=== PATIENT | female | born 1945 | race Caucasian/White ===

== ENCOUNTER 2022-04-26 11:35 | Inpatient (IN) | payer MEDICARE, OTHER ==
[2022-04-26 12:01] LABS: BASOPHILS % (AUTO) 0.4 %; EOSINOPHILS % (AUTO) 0.8 %; HCT - HEMATOCRIT 42.1 % (37.0-47.0); HGB - HEMOGLOBIN 14.7 g/dL (12.0-16.0); LYMPHOCYTES # (AUTO) 0.4 10^3/uL (1.5-3.5); LYMPHOCYTES % (AUTO) 16.3 %; MEAN CORPUSCULAR HGB CONC 34.9 g/dL (32.0-36.0); MEAN CORPUSCULAR VOLUME 94.4 fL (81.0-99.0); MONOCYTES # (AUTO) 0.1 10^3/uL (0.0-1.0); MONOCYTES % (AUTO) 3.2 %; NEUTROPHILS % (AUTO) 78.9 %; PLT - PLATELET COUNT 155 10^3/uL (130-450); RED BLOOD COUNT 4.46 10^6/uL (4.20-5.40); RED CELL DISTRIBUTION WIDTH 11.9 % (12.0-15.0); WHITE BLOOD COUNT 2.5 x10^3/uL (4.8-10.8)
[2022-04-26 12:05] LABS: SLIDE REVIEW? Indicated
[2022-04-26] MEDS ORDERED: SODIUM CHLORIDE 0.9% 1,000 ML IV STA (12:06)
--- NOTE | 2022-04-26 12:17 | ED Physician Documentation ---
History of Present Illness - Stated complaint Stated Complaint: ABDOMINAL PX - Chief complaint Chief Complaint: Abd Pain - Additonal information Additional information: 76-year-old female presents to the emergency department for evaluation of generalized abdominal discomfort and cramping. Reports that 9 days ago she had surgery at the [facility] joint of her left thumb. She did use opiate narcotics only for 2 days. She admits that since surgery she has not had any adequate or real bowel movements. Over the last 24 hours she has had progressive increase in pain as well as cramping to the point of nausea but no vomiting. She has not had any fevers. Past surgical history is most significant for a hysterectomy. Patient has tried [id number] Colace and senna without any resolution of symptoms. She reports that in the past she got violently ill from using MiraLAX as a prep for colonoscopy. Review of Systems Constitutional: denies: Fever, Chills Eyes: reports: Reviewed and negative Nose: reports: Reviewed and negative Throat: reports: Reviewed and negative Cardiac: reports: Reviewed and negative Respiratory: reports: Reviewed and negative GI: reports: Abdominal Pain, Nausea, Constipation. denies: Vomiting, Diarrhea, Hematemesis : denies: Dysuria, Frequency, Hesitancy Skin: reports: Reviewed and negative Musculoskeletal: denies: Neck pain, Back pain Neurologic: reports: Reviewed and negative PD PAST MEDICAL HISTORY - Present Medications Home Medications: Ambulatory Orders Medication Instructions Recorded Confirmed HYDROcod/ACETAM 5/325 [[place] 5/325] 1 - 2 tablet PO Q4HR PRN 04/26/22 04/26/22 Montelukast Sodium 10 mg PO HS 04/26/22 04/26/22 Ondansetron [Ondansetron Odt] 8 mg PO Q8HR PRN 04/26/22 04/26/22 buPROPion [Wellbutrin Sr] 150 mg PO BID 04/26/22 04/26/22 - Allergies Allergies/Adverse Reactions: Allergies Allergy/AdvReac Type Severity Reaction Status Date / Time budesonide AdvReac Anxiety Verified 04/26/22 12:51 codeine AdvReac Emesis Verified 04/26/22 11:48 fluticasone AdvReac Anxiety Verified 04/26/22 12:51 mometasone furoate AdvReac Anxiety Verified 04/26/22 12:51 PD ED PE NORMAL - General General: Alert and oriented X 3, No acute distress (Appears to be uncomfortable and in pain) - HEENT HEENT: Atraumatic - Neck Neck: Supple, no meningeal sign - Cardiac Cardiac: RRR, No murmur - Respiratory Respiratory: No respiratory distress, Clear bilaterally - Abdomen Abdomen: Normal bowel sounds, Soft, Non tender (Diffuse abdominal tenderness + rebound. Diminished bowel sounds. No swelling.) - Extremities Extremities: Other (Left arm is in a postoperative splint. Positive CMST hand) - Neuro Neuro: Alert and oriented X 3, caser 2-12 intact Eye Opening: Spontaneous Motor: Obeys Commands Verbal: Oriented GCS Score: 15 Results - Vitals Vitals: Vital Signs - 24 hr 04/26/22 04/26/22 04/26/22 11:44 12:00 14:01 Temperature 37.0 C Heart Rate 67 68 72 Respiratory 20 19 17 Rate Blood Pressure 135/75 H 135/75 H 144/93 H O2 Saturation 100 100 94 Oxygen O2 Source Room air - Labs Labs: Laboratory Tests 04/26/22 04/26/22 11:55 11:55 WBC 2.5 L RBC 4.46 Hgb 14.7 Hct 42.1 MCV 94.4 MCH 33.0 H MCHC 34.9 RDW 11.9 L Plt Count 155 MPV 10.0 Neut # (Auto) 2.0 Lymph # (Auto) 0.4 L [place] # (Auto) 0.1 Eos # (Auto) 0.0 Baso # (Auto) 0.0 Absolute Nucleated RBC 0.00 Nucleated RBC % 0.0 Manual Slide Review Indicated WBC Morphology NORMAL APPEARANCE Platelet Estimate NORMAL (130-450,000) Platelet Morphology NORMAL APPEARANCE RBC Morph Micro Appear NORMAL APPEARANCE Sodium 132 L Potassium 4.2 Chloride 94 L Carbon Dioxide 28 Anion Gap 10.0 BUN 33 H Creatinine 0.6 Estimated GFR (MDRD) 98 Glucose 118 H Calcium 9.3 Total Bilirubin 1.0 AST 28 ALT 23 Alkaline Phosphatase 47 Total Protein 6.8 Albumin 4.3 Globulin 2.5 Albumin/Globulin Ratio 1.7 Lipase 39 - Rads (name of study) CT abd Radiology: Final report received (Bowel perforation. Free air present in the abdomen and pelvis. A large amount of fecal debris throughout the colon) PD MEDICAL DECISION MAKING - ED course Complexity details: reviewed results, re-evaluated patient, considered differential, d/w patient ED course: 76-year-old female presents emergency department For evaluation of diffuse generalized abdominal pain that began this AM. She reports constipation after recent left arm surgery 9 days ago. No real significant bowel movement for a week. No fevers. No vomiting, but diffuse nausea. Screening labs show a modest neutropenia. Patient states this is typical for her. Screening electrolytes without acute findings. On exam she did have diffuse abdominal tenderness with some rebound. A CT of the abdomen does show free air under the diaphragm and in the pelvis consistent with bowel perforation. Given this finding I have ordered Zosyn. I have notified our surgeon on-call Dr. Dk Light and he will be coming to take the patient to the OR. Patient was notified of plan and findings and is agreeable. She at last exam is alert and hemodynamically stable. Further care to be dictated by surgic al team. Departure - Departure Disposition: ED Transfer to [facility] Clinical Impression: Bowel perforation Constipation Qualifiers: Constipation type: other constipation type Qualified Code(s): K59.09 - Other constipation
[2022-04-26 12:21] LABS: PLATELET ESTIMATE, MANUAL NORMAL (130-450,000) (NORMAL); PLATELET MORPHOLOGY NORMAL APPEARANCE (NORMAL); RBC MORPHOLOGY (MULTIPLE) NORMAL APPEARANCE (NORMAL); WBC MORPHOLOGY (MULTIPLE) NORMAL APPEARANCE (NORMAL)
[2022-04-26 12:26] LABS: ALBUMIN 4.3 g/dL (3.2-5.5); ALBUMIN/GLOBULIN RATIO 1.7 (1.0-2.2); CALCIUM 9.3 mg/dL (8.5-10.3); CREATININE 0.6 mg/dL (0.4-1.0); POTASSIUM 4.2 mmol/L (3.5-5.0); TOTAL PROTEIN 6.8 g/dL (6.7-8.2)
[2022-04-26] MEDS ORDERED: MAGNESIUM CITRATE 296 ML BOTTLE PO STA (12:34)
[2022-04-26] MEDS ORDERED: SALINE ENEMA 133 ML BOTTLE RC STA (12:34)
[2022-04-26] MEDS ORDERED: PIPERACILLIN/TAZOBACTAM 3.375 GM in SODIUM CHLORIDE 0.9% MINIBAG 100 ML IV STA (12:51)
[2022-04-26] MEDS ORDERED: ONDANSETRON 4 MG/2 ML VIAL IVP STA (12:53)
--- NOTE | 2022-04-26 12:55 | CT Report ---
PROCEDURE: CT abdomen pelvis without contrast INDICATIONS: Constipation after surgery. Abdominal cramping TECHNIQUE: Noncontrast 5 mm thick sections acquired from the diaphragms to the symphysis. 5 mm coronal and sagi ttal reformats were then performed. For radiation dose reduction, the following was used: automated exposure control, adjustment of mA and/or kV according to patient size. COMPARISON: None. FINDINGS: Image quality: Excellent. ABDOMEN: Lung bases: Lung bases are clear. Heart size is normal. Solid organs: Liver and spleen are normal in size. Gallbladder unremarkable. Pancreas is normal in contours. No adrenal nodules. Kidneys are normal in size, without hydronephrosis or nephrolithiasi s. Peritoneum and bowel: Large amount fecal debris present throughout the colon. Additionally, there is free air under the hemidiaphragms and adjacent to the anterior abdominal wall, consistent with bowel perforation Nodes and vessels: No retroperitoneal or mesenteric adenopathy by size criteria. Aorta and inferior vena cava are normal in caliber. Miscellaneous: No ventral hernias. PELVIS: Genitourinary: Bladder wall thickness is normal. Miscellaneous: No inguinal hernias or adenopathy. Bones: No suspicious bony lesions. No vertebral body compression fractures. Multilevel degenerativ e disc disease and arthropathy present lower lumbar spine. IMPRESSION: 1. Bowel perforation. Free air present in the abdomen or pelvis. 2. Large amount fecal debris throughout the colon Note: Critical results were discussed with Dr. Rivero at 11:49 AM [place] time on 04/26/2022 Reviewed by: Bandar Stephens MD on 04/26/2022 11:54 AM AKDT Approved by: Bandar Stephens MD on 04/26/2022 11:54 AM AKDT Station ID: [id number]
[2022-04-26] MEDS ORDERED: fentaNYL 100 MCG/2 ML VIAL IVP STA (12:56)
--- NOTE | 2022-04-26 14:12 | HISTORY & PHYSICAL EXAMINATION ---
Chief Complaint - Chief Complaint Chief Complaint: abdominal pain History of Present Illness - Admitted From Admitted From:: ed - History Obtained From Records Reviewed: yes History obtained from: pt Exam Limitations: none - History of Present Illness HPI Comment/Other: hand surgery 1 week ago. mild increased constipation following. severe pain this am. seen and evaluated for acute abdomen. Meds/Allgy - Home Medications Home Medications: Ambulatory Orders Medication Instructions Recorded Confirmed HYDROcod/ACETAM 5/325 [[place] 5/325] 1 - 2 tablet PO Q4HR PRN 04/26/22 04/26/22 Montelukast Sodium 10 mg PO HS 04/26/22 04/26/22 Ondansetron [Ondansetron Odt] 8 mg PO Q8HR PRN 04/26/22 04/26/22 buPROPion [Wellbutrin Sr] 150 mg PO BID 04/26/22 04/26/22 - Allergies Allergies/Adverse Reactions: Allergies Allergy/AdvReac Type Severity Reaction Status Date / Time budesonide AdvReac Anxiety Verified 04/26/22 12:51 codeine AdvReac Emesis Verified 04/26/22 11:48 fluticasone AdvReac Anxiety Verified 04/26/22 12:51 mometasone furoate AdvReac Anxiety Verified 04/26/22 12:51 Review of Systems - Other Findings Other Findings: 10 pt ros as above otherwise unremarkable denies heart or lung problem hep c treated years ago history breast ca. no recurrence Exam - Vital Signs Reviewed Vital Signs: Yes Vital Signs: Vital Signs x48h Temp Pulse Resp BP Pulse Ox 04/26/22 14:01 72 17 144/93 H 94 04/26/22 12:00 68 19 135/75 H 100 04/26/22 11:44 37.0 C 67 20 135/75 H 100 - Physical Exam General Appearance: positive: Alert, Moderate distress Eyes Bilateral: positive: PERRL, EOMI, No scleral icterus ENT: positive: No signs of dehydration Neck: positive: No JVD, Trachea midline Respiratory: positive: No respiratory distress, Breath sounds nml Cardiovascular: positive: Regular rate & rhythm Abdomen: positive: Other (diffuse peritonitis) Neurologic/Psychiatric: positive: Oriented x3 Conclusion/Plan - Problem List (1) Bowel perforation Conclusion/Plan: likely perforated colon. plan colectomy and colostomy. parq held and consent obtained - Lab Results Fish Bones: 04/26/22 11:55 04/26/22 11:55 - Diagnostic Imaging Results Diagnostic Imaging Results: positive: Read independently (likely perforated colon)
[2022-04-26] MEDS ORDERED: MIDAZOLAM 2 MG/2 ML VIAL ONE (14:27)
[2022-04-26] MEDS ORDERED: fentaNYL 100 MCG/2 ML VIAL ONE ×2 (14:27→15:03)
[2022-04-26] MEDS ORDERED: BUPIVACAINE 0.25% PF 10 ML VIAL ONE ×2 (14:49→14:50)
[2022-04-26] MEDS ORDERED: PROPOFOL 200 MG/20 ML VIAL IVP ONE (15:02)
[2022-04-26] MEDS ORDERED: ONDANSETRON 4 MG/2 ML VIAL ONE (15:02)
[2022-04-26] MEDS ORDERED: ROCURONIUM 50 MG/5 ML VIAL ONE (15:02)
[2022-04-26] MEDS ORDERED: LIDOCAINE-MPF 2% 5 ML VIAL ONE (15:02)
[2022-04-26] MEDS ORDERED: ONDANSETRON 4 MG/2 ML VIAL IVP PRN (15:04)
[2022-04-26] MEDS ORDERED: MORPHINE 2 MG/ML CARPUJECT IVP PRN (15:04)
[2022-04-26] MEDS ORDERED: ePHEDrine 50 MG/ML VIAL IVP PRN (15:04)
[2022-04-26] MEDS ORDERED: ATROPINE ABBOJECT 1 MG/10 ML SYRINGE IVP PRN (15:04)
[2022-04-26] MEDS ORDERED: HYDROmorphone 0.5 MG/0.5 ML SYRINGE IVP PRN (15:04)
[2022-04-26] MEDS ORDERED: NALOXONE 0.4 MG/ML VIAL IVP PRN (15:04)
--- NOTE | 2022-04-26 15:07 | ANESTHESIA ---
Pre-Anesthesia VS, & Labs - Diagnosis small bowel perforation - Procedure exploratory laparotomy with possible colectomy/colostomy Vital Signs: Temp Pulse Resp BP Pulse Ox 37.0 C 72 17 144/93 H 94 04/26/22 11:44 04/26/22 14:01 04/26/22 14:01 04/26/22 14:01 04/26/22 14:01 Height: 5 ft 4 in Weight (kg): 51.256 kg Body Mass Index: 19.3 BMI Classification: Healthy weight - NPO Other Last Fluid Intake: 3hrs Last Food Intake: full breakfast 5 hrs - Is Patient ?: No - Lab Results Current Lab Results: Laboratory Tests 04/26/22 11:55: Sodium 132 L, Potassium 4.2, Chloride 94 L, Carbon Dioxide 28, Anion Gap 10.0, BUN 33 H, Creatinine 0.6, Estimated GFR (MDRD) 98, Glucose 118 H , Calcium 9.3, Total Bilirubin 1.0, AST 28, ALT 23, Alkaline Phosphatase 47, Total Protein 6.8, Albumin 4.3, Globulin 2.5, Albumin/Globulin Ratio 1.7, Lipase 39 04/26/22 11:55: WBC 2.5 L, RBC 4.46, Hgb 14.7, Hct 42.1, MCV 94.4, MCH 33.0 H, MCHC 34.9, RDW 11.9 L, Plt Count 155, MPV 10.0, Neut # (Auto) 2.0, Lymph # (Auto) 0.4 L, [place] # (Auto) 0.1, Eos # (Auto) 0.0, Baso # (Auto) 0.0, Absolute Nucleated RBC 0.00, Nucleated RBC % 0.0, Manual Slide Review Indicated, WBC Morphology NORMAL APPEARANCE, Platelet Estimate NORMAL (130-450,000), Platelet Morphology NORMAL APPEARANCE, RBC Morph Micro Appear NORMAL APPEARANCE Fish Bones: 04/26/22 11:55 04/26/22 11:55 Home Medications and Allergies Home Medications: Ambulatory Orders HYDROcod/ACETAM 5/325 [[place] 5/325] 1 - 2 tablet PO Q4HR PRN 04/26/22 Montelukast Sodium 10 mg PO HS 04/26/22 Ondansetron [Ondansetron Odt] 8 mg PO Q8HR PRN 04/26/22 buPROPion [Wellbutrin Sr] 150 mg PO BID 04/26/22 HYDROcod/ACETAM 5/325 [[place] 5/325] 1 - 2 tablet PO Q4HR PRN 04/26/22 Montelukast Sodium 10 mg PO HS 04/26/22 Ondansetron [Ondansetron Odt] 8 mg PO Q8HR PRN 04/26/22 buPROPion [Wellbutrin Sr] 150 mg PO BID 04/26/22 Allergies/Adverse Reactions: Allergies Allergy/AdvReac Type Severity Reaction Status Date / Time budesonide AdvReac Anxiety Verified 04/26/22 12:51 codeine AdvReac Emesis Verified 04/26/22 11:48 fluticasone AdvReac Anxiety Verified 04/26/22 12:51 mometasone furoate AdvReac Anxiety Verified 04/26/22 12:51 Anes History & Medical History - Anesthetic History Anesthesia Complications: reports: No previous complications Family history of Anesthesia Complications: Denies Family history of Malignant Hyperthermia: Denies - Medical History Cardiovascular: reports: Other (left fascicular block) Pulmonary: reports: Asthma Gastrointestinal: reports: Hepatitis (hx of hepatitis, N/V,) Urinary: reports: None Neuro: reports: None History of Cancer?: No - Surgical History Orthopedic: reports: Other (left thumb surgery last week. arm currently in cast) Exam General: Alert, Oriented x3, Cooperative Dental: Loose/Frag (many loose teeth, mostly all bottom teeth), Poor dentition Respiratory: Lungs clear Cardiovascular: Regular rate Plan Anesthesia Type: General Consent for Procedure(s) Verified and Reviewed: Yes Code Status: Attempt Resuscitation ASA classification: 2-Mild systemic disease Is this case an emergency?: Yes
[2022-04-26] MEDS ORDERED: BUPIVACAINE 0.25% PF 10 ML VIAL SUBQ ONE (15:22)
[2022-04-26] MEDS ORDERED: ACETAMINOPHEN 1,000 MG/100 ML 100 ML IV ONE (15:25)
[2022-04-26] MEDS ORDERED: LACTATED RINGERS 1,000 ML IV SCH (16:00)
[2022-04-26] MEDS ORDERED: ZOLPIDEM 5 MG TABLET PO PRN (16:01)
[2022-04-26] MEDS ORDERED: ONDANSETRON ODT 4 MG TABLET TL PRN (16:01)
[2022-04-26] MEDS ORDERED: SUGAMMADEX 200 MG/2 ML VIAL IVP ONE (16:06)
[2022-04-26] MEDS ORDERED: LACTATED RINGERS 700 ML IV ONE (16:08)
[2022-04-26] MEDS: fentaNYL 100 MCG/2 ML VIAL IVP PRN ×2 (16:15→16:50)
--- NOTE | 2022-04-26 16:57 | ANESTHESIA POST OP EVALUATION ---
Anesthesia Post Eval - Post Anesthesia Eval Vitals: Last Vital Signs Temp 36.9 C 04/26/22 16:45 Pulse 78 04/26/22 16:45 Resp 10 L 04/26/22 16:45 BP 147/64 H 04/26/22 16:45 Pulse Ox 100 04/26/22 16:45 CV Function Including HR & BP: Stable Pain Control: Satisfactory Nausea & Vomiting: Negative Mental Status: Baseline Respiratory Status: Airway Patent Hydration Status: Satisfactory Anesthesia Complications: None
[2022-04-26] MEDS: D5.45NS W/20 MEQ KCL 1,000 ML IV SCH (17:26)
[2022-04-26] MEDS: ONDANSETRON 4 MG/2 ML VIAL IVP PRN (17:33)
[2022-04-26] MEDS: PIPERACILLIN/TAZOBACTAM 3.375 GM in SODIUM CHLORIDE 0.9% MINIBAG 100 ML IV SCH (17:45)
--- NOTE | 2022-04-26 18:03 | XRAY Report ---
PROCEDURE: Chest for Line Placement INDICATIONS: NG tube placement TECHNIQUE: One view of the chest was acquired. COMPARISON: None FINDINGS: Surgical changes and devices: Nasogastric tube in the stomach Lungs and pleura: Pulmonary hyperinflation and chronic interstitial changes present. Mediastinum: Mediastinal contours appear normal. Heart size is normal. Bones and chest wall: No suspicious bony lesions. Overlying soft tissues appear unremarkable. IMPRESSION: Nasogastric tube in the stomach Reviewed by: Bandar Stephens MD on 04/26/2022 5:02 PM ELVIA Approved by: Bandar Stephens MD on 04/26/2022 5:02 PM [place] Station ID: [id number]
[2022-04-26 18:10] LABS: BILIRUBIN,URINE NEGATIVE (NEGATIVE); CLARITY,URINE HAZY (CLEAR); GLUCOSE, URINE (UA) NEGATIVE (NEGATIVE); KETONES,URINE (UA) 15 mg/dL (NEGATIVE); LEUKOCYTE ESTERASE, URINE NEGATIVE (NEGATIVE); NITRITE,URINE POSITIVE (NEGATIVE); OCCULT BLOOD,URINE SMALL (NEGATIVE); PH,URINE 5.5 PH (5.0-7.5); PROTEIN,URINE TRACE mg/dL (NEGATIVE); UROBILINOGEN,URINE 0.2 (NORMAL) E.U./dL (NORMAL)
[2022-04-26 18:20] LABS: BACTERIA,URINE Rare /HPF (None Seen); SQUAMOUS EPITHELIAL CELL,UR NONE SEEN (<= Few); WBC,URINE 0-3 /HPF (0-5)
[2022-04-26] MEDS: HYDROmorphone 0.5 MG/0.5 ML SYRINGE IVP PRN (22:06)
[2022-04-26] MEDS: buPROPion SR 150 MG TABLET PO SCH (22:06)
[2022-04-27] MEDS: HYDROmorphone 0.5 MG/0.5 ML SYRINGE IVP PRN ×5 (00:10→15:28)
[2022-04-27] MEDS: SODIUM CHLORIDE FLUSH 0.9% 10 ML SYRINGE IVP SCH ×4 (00:10→23:55)
[2022-04-27] MEDS: ONDANSETRON 4 MG/2 ML VIAL IVP PRN ×2 (00:10→07:56)
[2022-04-27] MEDS: PIPERACILLIN/TAZOBACTAM 3.375 GM in SODIUM CHLORIDE 0.9% MINIBAG 100 ML IV SCH ×5 (00:10→23:55)
[2022-04-27] MEDS: D5.45NS W/20 MEQ KCL 1,000 ML IV SCH ×3 (02:31→22:48)
[2022-04-27] MEDS: buPROPion SR 150 MG TABLET PO SCH ×2 (11:32→21:36)
[2022-04-27] MEDS ORDERED: SODIUM CHLORIDE 0.9% 500 ML IV ONE (12:57)
--- NOTE | 2022-04-27 13:00 | PROVIDER PROGRESS NOTE ---
Subjective - Subjective Pt reports feeling: Improved (feels thirsty otherwise ok) Objective - Vital Signs/Intake & Output Vital Signs: Vital Signs x48h Temp Pulse Pulse Resp BP Pulse Ox 04/27/22 11:03 37.1 C 93 16 95 04/27/22 07:31 37.1 C 93 16 102/51 L 95 Intake & Output: Intake & Output 04/24/22 04/25/22 04/26/22 04/27/22 23:59 23:59 23:59 23:59 Intake Total 1210 2320 Output Total 375 650 Balance 835 1670 - Objective General Appearance: positive: No acute distress, Alert Eyes Bilateral: positive: PERRL, EOMI Respiratory: positive: No respiratory distress Abdomen: positive: Non-tender, No distention, Other (stoma warm viable, slightly purple) Neurologic/Psychiatric: positive: Oriented x3 - Lab Results Fish Bones: 04/26/22 11:55 04/26/22 11:55 Other Labs: Lab Results x24hrs 04/26/22 04/26/22 Range/Units 18:00 13:20 Urine Color YELLOW Urine Clarity HAZY (CLEAR) Urine pH 5.5 (5.0-7.5) PH Ur Specific [place] 1.020 (1.002-1.030) Urine Protein TRACE (NEGATIVE) mg/dL Urine Glucose (UA) NEGATIVE (NEGATIVE) mg/dL Urine Ketones 15 H (NEGATIVE) mg/dL Urine Occult Blood SMALL H (NEGATIVE) Urine Nitrite POSITIVE H (NEGATIVE) Urine Bilirubin NEGATIVE (NEGATIVE) Urine Urobilinogen 0.2 (NORMAL) (NORMAL) E.U./dL Ur Leukocyte Esterase NEGATIVE (NEGATIVE) Urine RBC 6-10 H (0-5) /HPF Urine WBC 0-3 (0-5) /HPF Ur Squamous Epith Cells NONE SEEN (<= Few) Urine Bacteria Rare (None Seen) /HPF Ur Microscopic Review INDICATED Urine Culture Comments INDICATED SARS-CoV-2 (PCR) NOT DETECTED Assessment/Plan - Problem List (1) Bowel perforation Impression: d/c ngt today d/c yang and antibiotics tomorrow ivf bolus today continue npo except for sips plan closure incision bedside postop day 4
--- NOTE | 2022-04-27 13:17 | OPERATIVE REPORT ---
Operative Report - General Admit Date: 04/26/22 Procedure Date: 04/26/22 Planned Procedure: exploratory laparotomy, colectomy, colostomy Pre-Op Diagnosis: perforated viscous, likely colon Procedure Performed: exploratory laparotomy, colectomy, colostomy Post Op Diagnosis: perforated mid sigmoid colon - Procedure Note Primary Surgeon: emma haddad Anesthesia Technique: General ET tube, Local Pathology: sigmoid colon Estimated Blood Loss (mL): 25 Drain/Tube Type: Other (none) Indications: acute abdomen with peritonitis Findings: as above Complications: none - Other Other Information/Narrative: The patient was properly identified brought to the operating room and placed in supine position. General endotracheal anesthesia was induced. A nasogastric tube and [place] catheter and sequential compression devices were placed. She had received antibiotics in the emergency department. She was prepped and draped in a sterile fashion. A low midline incision was made. Abdomen was opened sharply. Foul-smelling dark fluid was present throughout the abdomen. The left colon was identified and inspected down towards the pelvis. A 3 cm hole was present in the mid sigmoid colon. Stool is present in the pelvis. Stool was removed from the abdomen. Colon was mobilized along the white line of [place]. Proximal sigmoid colon was divided with a DANY stapler. Mesentery was taken with clamps and 2-0 Vicryl ties. The colon was divided just beyond the rupture with a DANY stapler. Specimen was removed. Hemostasis was assured. The abdomen was thoroughly irrigated. A circular incision was made over the left rectus 4 cm caudad of the umbilicus. Dissection proceeded down to the fascia. A cruciate incision was made in the fascia and rectus musculature dilated. End of bowel was brought out. Omentum was placed beneath the midline incision. Fascia was closed with 2 running 0 PDS sutures. Gloves had been changed at this point. Incision area was left open. Field was redraped with fresh towels. The stoma was then created. Staple line removed and multiple three-point interrupted 3-0 Vicryl sutures placed. Stoma appeared viable. Subcutaneous tissue was irrigated and moist dressing applied followed by ABD pad. She tolerated the procedure well was awakened and brought to recovery in good condition.
[2022-04-27] MEDS: oxyCODONE 5 MG TABLET PO PRN (18:18)
[2022-04-27] MEDS: HEPARIN 5,000 UNIT/ML VIAL SUBQ SCH (21:28)
[2022-04-28] MEDS: oxyCODONE 5 MG TABLET PO PRN
[2022-04-28] MEDS: PIPERACILLIN/TAZOBACTAM 3.375 GM in SODIUM CHLORIDE 0.9% MINIBAG 100 ML IV SCH (05:35)
[2022-04-28] MEDS: ACETAMINOPHEN 325 MG TABLET PO PRN ×3 (09:11→16:52)
[2022-04-28] MEDS: buPROPion SR 150 MG TABLET PO SCH ×2 (09:11→20:21)
[2022-04-28] MEDS: SODIUM CHLORIDE FLUSH 0.9% 10 ML SYRINGE IVP SCH ×2 (09:12→16:52)
[2022-04-28] MEDS: D5.45NS W/20 MEQ KCL 1,000 ML IV SCH ×3 (09:12→16:38)
--- NOTE | 2022-04-28 09:37 | PROVIDER PROGRESS NOTE ---
Subjective - Subjective Pt reports feeling: Improved (mild nausea. minimal pain) Objective - Vital Signs/Intake & Output Reviewed Vital Signs: Yes Vital Signs: Vital Signs x48h Temp Pulse Resp BP Pulse Ox 04/28/22 08:00 36.7 C 86 18 100/57 L 96 Intake & Output: Intake & Output 04/25/22 04/26/22 04/27/22 04/28/22 23:59 23:59 23:59 23:59 Intake Total 1210 4061.667 1963.173 Output Total 375 1650 625 Balance 835 2411.667 1338.173 - Objective General Appearance: positive: No acute distress, Alert Eyes Bilateral: positive: PERRL, EOMI ENT: positive: No signs of dehydration Neck: positive: Trachea midline Respiratory: positive: No respiratory distress Abdomen: positive: Non-tender, No distention, Other (pink stoma. no output) Neurologic/Psychiatric: positive: Oriented x3 - Lab Results Fish Bones: 04/26/22 11:55 04/26/22 11:55 Assessment/Plan - Problem List (1) Bowel perforation Impression: doing well d/c yang d/c antibiotics pt,ot, social work consult
[2022-04-28] MEDS: HEPARIN 5,000 UNIT/ML VIAL SUBQ SCH ×2 (10:48→20:20)
[2022-04-28] MEDS: ONDANSETRON 4 MG/2 ML VIAL IVP PRN (10:55)
--- NOTE | 2022-04-28 15:04 | PHARMACY PROGRESS NOTE ---
- Best Possible Medication History Admit Date and Time: 04/26/22 7338 Processed by: Nursing Medication History completed: Yes As the person ultimately responsible for medication therapy, providers are able to order a medication from an existing home medication list in [facility] via the "Reconcile Routine" prior to Confirmation of that medication by senior support engineer. Such practice is discouraged except when the physician, in their clinical judgment, deems that a medical need exists for a medication without regard to previous use.
[2022-04-28 16:28] LABS: CALCIUM 8.3 mg/dL (8.5-10.3); CREATININE 0.6 mg/dL (0.4-1.0)
[2022-04-28] MEDS: LORazepam 1 MG TABLET PO PRN (20:20)
[2022-04-29] MEDS: ONDANSETRON 4 MG/2 ML VIAL IVP PRN ×2 (00:10→21:24)
[2022-04-29] MEDS: SODIUM CHLORIDE FLUSH 0.9% 10 ML SYRINGE IVP SCH ×3 (00:10→18:27)
[2022-04-29] MEDS: HYDROmorphone 0.5 MG/0.5 ML SYRINGE IVP PRN (00:41)
[2022-04-29] MEDS: HEPARIN 5,000 UNIT/ML VIAL SUBQ SCH ×2 (08:58→21:19)
[2022-04-29] MEDS: buPROPion SR 150 MG TABLET PO SCH ×2 (08:58→21:20)
--- NOTE | 2022-04-29 10:02 | PROVIDER PROGRESS NOTE ---
Subjective - Prog Note Date Prog Note Date: 04/29/22 - Subjective Pt reports feeling: Improved (less painful. tolerating clears. no nausea) Objective - Vital Signs/Intake & Output Reviewed Vital Signs: Yes Vital Signs: Vital Signs x48h Temp Pulse Resp BP Pulse Ox 04/29/22 07:47 37.1 C 93 19 122/75 94 Intake & Output: Intake & Output 04/26/22 04/27/22 04/28/22 04/29/22 23:59 23:59 23:59 23:59 Intake Total 1210 4061.667 2833.173 Output Total 375 1650 2775 Balance 835 2411.667 58.173 - Objective General Appearance: positive: No acute distress, Alert Eyes Bilateral: positive: PERRL, EOMI, No scleral icterus Neck: positive: No JVD Respiratory: positive: No respiratory distress Abdomen: positive: Non-tender, No distention, Other (stoma with small amount air slightly purple no edema dressing c/d/i. no erythema) Neurologic/Psychiatric: positive: Oriented x3 - Lab Results Fish Bones: 04/26/22 11:55 04/28/22 16:11 Other Labs: Lab Results x24hrs 04/28/22 Range/Units 16:11 Sodium 135 (135-145) mmol/L Potassium 4.0 (3.5-5.0) mmol/L Chloride 102 (101-111) mmol/L Carbon Dioxide 26 (21-32) mmol/L Anion Gap 7.0 (6-13) BUN 9 (6-20) mg/dL Creatinine 0.6 (0.4-1.0) mg/dL Estimated GFR (MDRD) 98 (>89) Glucose 144 H (70-100) mg/dL Calcium 8.3 L (8.5-10.3) mg/dL Assessment/Plan - Problem List (1) Bowel perforation Impression: ileus starting to resolve continue present care clears plan closure midline incision in day or two at bedside
[2022-04-29] MEDS: D5.45NS W/20 MEQ KCL 1,000 ML IV SCH (13:02)
[2022-04-29] MEDS: ACETAMINOPHEN 325 MG TABLET PO PRN (13:02)
[2022-04-30] MEDS: SODIUM CHLORIDE FLUSH 0.9% 10 ML SYRINGE IVP SCH ×4 (00:05→23:42)
[2022-04-30] MEDS: HYDROmorphone 0.5 MG/0.5 ML SYRINGE IVP PRN (01:06)
[2022-04-30] MEDS: buPROPion SR 150 MG TABLET PO SCH ×2 (08:14→21:25)
[2022-04-30] MEDS: HEPARIN 5,000 UNIT/ML VIAL SUBQ SCH ×2 (08:14→21:27)
--- NOTE | 2022-04-30 09:29 | PROVIDER PROGRESS NOTE ---
Subjective - Subjective Pt reports feeling: Improved (tolerating clears having cramping pain) Objective - Vital Signs/Intake & Output Reviewed Vital Signs: Yes Vital Signs: Vital Signs x48h Temp Pulse Resp BP Pulse Ox 04/30/22 07:42 36.5 C 78 16 126/67 96 Intake & Output: Intake & Output 04/27/22 04/28/22 04/29/22 04/30/22 23:59 23:59 23:59 23:59 Intake Total 4061.667 2833.173 2714.167 250 Output Total 1650 2775 Balance 2411.667 58.173 2714.167 250 - Objective General Appearance: positive: No acute distress, Alert Eyes Bilateral: positive: PERRL, EOMI, No scleral icterus Neck: positive: No JVD Respiratory: positive: No respiratory distress Abdomen: positive: Non-tender, No distention, Other (air in stoma bag dressing c/d/i no erythema) Neurologic/Psychiatric: positive: Oriented x3 - Lab Results Fish Bones: 04/26/22 11:55 04/28/22 16:11 Assessment/Plan - Problem List (1) Bowel perforation Impression: ileus resolving significant stool burden still present. home health consult advance diet when cramping improved delayed closure incision at bedside tomorrow
[2022-04-30] MEDS: LORazepam 1 MG TABLET PO PRN (21:42)
[2022-05-01] MEDS: HEPARIN 5,000 UNIT/ML VIAL SUBQ SCH ×2 (08:01→20:17)
[2022-05-01] MEDS: buPROPion SR 150 MG TABLET PO SCH ×2 (08:01→20:17)
[2022-05-01] MEDS: SODIUM CHLORIDE FLUSH 0.9% 10 ML SYRINGE IVP SCH ×2 (08:01→16:45)
--- NOTE | 2022-05-01 10:36 | CONSULTATION NOTE ---
Surgery Consult - Admit Date Hospital Admission Date: 04/26/22 - Consult Date Consult Date: 05/01/22 Requesting Provider: Kuldeep - Chief Complaint Chief Complaint: Suture removal - Home Meds/Allergies Home Medications: Patient History Medication Instructions Recorded Confirmed HYDROcod/ACETAM 5/325 [[place] 5/325] 1 - 2 tablet PO Q4HR PRN 04/26/22 04/26/22 Montelukast Sodium 10 mg PO HS 04/26/22 04/26/22 Ondansetron [Ondansetron Odt] 8 mg PO Q8HR PRN 04/26/22 04/26/22 buPROPion [Wellbutrin Sr] 150 mg PO BID 04/26/22 04/26/22 Allergies/Adverse Reactions: Allergies Allergy/AdvReac Type Severity Reaction Status Date / Time budesonide AdvReac Anxiety Verified 04/26/22 12:51 codeine AdvReac Emesis Verified 04/26/22 11:48 fluticasone AdvReac Anxiety Verified 04/26/22 12:51 mometasone furoate AdvReac Anxiety Verified 04/26/22 12:51 - Vital Signs Vital Signs: Last Vital Signs Temp 36.6 C 05/01/22 07:46 Pulse 82 05/01/22 07:46 Resp 19 05/01/22 07:46 BP 130/66 05/01/22 07:46 Pulse Ox 96 05/01/22 07:46 Intake & Output: Intake & Output 04/28/22 04/29/22 04/30/22 05/01/22 23:59 23:59 23:59 23:59 Intake Total 2833.173 2714.167 1605.833 340 Output Total 2775 Balance 58.173 2714.167 1605.833 340 - Lab Results Result Diagrams: 04/26/22 11:55 04/28/22 16:11 - Consultation Note Consultation Note: Patient is a 76-year-old female Who had a left thumb CMC partial replacement surgery performed on 04/17/[address] Jose Alfredo Carvajal In [place], [place] for osteoarthritis. Patient admitted to [facility] after surgery to relieve a bowel perforation performed by Dr. Light. Orthopedics is being consulted on evaluation of surgical incision and to consider removing the 5 sutures that were placed after left CMC surgery and to reapply her thumb spica splint. Patient denies signs or symptoms of infection including but not limited to fevers, chills, swelling, erythema, Increased pain or drainage from wound. Inspection of the patient's left thumb and wrist reveals well-healed Incision with no dehiscence no drainage no erythema no redness no appreciable swelling. Patient has reduced range of motion to the thumb and some tenderness over the incision and at the CMC joint. She has good capillary refill less than 2 seconds and is grossly neurovascularly intact in her left thumb wrist and hand. 5 sutures were identified and 5 sutures were removed. Patient tolerated procedu re well. Xeroform was placed over the incision along with some postop sponges followed by soft roll. A fiberglass thumb spica splint and then 2 Atif rolls. Patient does not need a dressing change while in the hospital provided she is here 5 or less days. She has been given a sixpack of a hand Home exercise program and hardcopy And been instructed on how to gently exercise her fingers. She is yo avoid excessive movement of her thumb currently, she is to keep that semiprotected/smi immobilized. Ice or heat can be applied for comfort. Current plan is for earliest discharge by this Thursday depending on bowel movements. Patient should follow-up with her original orthopedic surgeon Dr. Carvajal, or her PT/OT hand therapist By the end of next week. Patient is welcome to have it evaluated at the [facility] orthopedic clinic or at a local urgent care if its been more than 7-8 days From today.
[2022-05-01] MEDS: ONDANSETRON 4 MG/2 ML VIAL IVP PRN ×2 (11:42→16:53)
[2022-05-01] MEDS: SODIUM CHLORIDE FLUSH 0.9% 10 ML SYRINGE IVP PRN (11:42)
[2022-05-01] MEDS ORDERED: LIDOCAINE 2%-EPI 1:100000 20 ML MDV ONE (14:28)
--- NOTE | 2022-05-01 19:56 | PROVIDER PROGRESS NOTE ---
Subjective - Subjective Pt reports feeling: Improved (little discomfort. tolerating clears well) Objective - Vital Signs/Intake & Output Reviewed Vital Signs: Yes Vital Signs: Vital Signs x48h Temp Pulse Resp BP Pulse Ox 05/01/22 16:15 36.7 C 88 18 124/68 98 Intake & Output: Intake & Output 04/28/22 04/29/22 04/30/22 05/01/22 23:59 23:59 23:59 23:59 Intake Total 2833.173 2714.167 3110.953 6085 Output Total 2775 Balance 58.173 2714.167 1775.044 6249 - Objective General Appearance: positive: No acute distress, Alert Eyes Bilateral: positive: PERRL, EOMI, No scleral icterus ENT: positive: No signs of dehydration Neck: positive: No JVD, Trachea midline Respiratory: positive: No respiratory distress Abdomen: positive: Non-tender, No distention, Other ( open clean wound. this is closed using local anesthesia and angela. well tolerated) Neurologic/Psychiatric: positive: Oriented x3 - Lab Results Fish Bones: 04/26/22 11:55 04/28/22 16:11 Assessment/Plan - Problem List (1) Bowel perforation Impression: doing well. incision closed at bedside. well tolerated diet of choice home when passing stool and tolerating regular diet
[2022-05-01] MEDS: SENNA 8.6 MG TABLET PO SCH (20:17)
[2022-05-01] MEDS: LORazepam 1 MG TABLET PO PRN (22:28)
[2022-05-02] MEDS: SODIUM CHLORIDE FLUSH 0.9% 10 ML SYRINGE IVP SCH ×3 (01:01→17:02)
[2022-05-02] MEDS: HEPARIN 5,000 UNIT/ML VIAL SUBQ SCH ×2 (08:37→20:29)
[2022-05-02] MEDS: buPROPion SR 150 MG TABLET PO SCH ×2 (08:38→20:29)
[2022-05-02] MEDS: SENNA 8.6 MG TABLET PO SCH (08:38)
--- NOTE | 2022-05-02 11:19 | PROVIDER PROGRESS NOTE ---
Subjective - Subjective Pt reports feeling: Improved (starting to pass stool. unfortunately bag leaked which has caused her distress) Objective - Vital Signs/Intake & Output Reviewed Vital Signs: Yes Vital Signs: Vital Signs x48h Temp Pulse Resp BP Pulse Ox 05/02/22 07:57 37.2 C 96 20 132/70 H 97 Intake & Output: Intake & Output 04/29/22 04/30/22 05/01/22 05/02/22 23:59 23:59 23:59 23:59 Intake Total 2714.167 2298.022 4989 800 Output Total 200 1 Balance 2714.167 1282.068 8394 799 - Objective General Appearance: positive: Alert Eyes Bilateral: positive: PERRL, EOMI ENT: positive: No signs of dehydration Neck: positive: No JVD Respiratory: positive: No respiratory distress Abdomen: positive: Non-tender, No distention Neurologic/Psychiatric: positive: Oriented x3 - Lab Results Fish Bones: 04/26/22 11:55 04/28/22 16:11 Assessment/Plan - Problem List (1) Bowel perforation Impression: diet of choice home when tolerating diet and doing well with stoma care
[2022-05-02] MEDS: LORazepam 1 MG TABLET PO PRN (22:23)
[2022-05-03] MEDS: SODIUM CHLORIDE FLUSH 0.9% 10 ML SYRINGE IVP SCH ×4 (00:15→23:45)
[2022-05-03] MEDS: buPROPion SR 150 MG TABLET PO SCH ×2 (08:15→21:09)
[2022-05-03] MEDS: HEPARIN 5,000 UNIT/ML VIAL SUBQ SCH ×2 (09:15→21:08)
[2022-05-03] MEDS: SENNA 8.6 MG TABLET PO SCH (09:15)
--- NOTE | 2022-05-03 11:42 | PROVIDER PROGRESS NOTE ---
Subjective - Prog Note Date Prog Note Date: 05/03/22 - Subjective Pt reports feeling: Improved (passing stool. no pain. ambulating well) Objective - Vital Signs/Intake & Output Reviewed Vital Signs: Yes Vital Signs: Vital Signs x48h Temp Pulse Resp BP Pulse Ox 05/03/22 08:00 36.6 C 94 20 129/82 H 96 Intake & Output: Intake & Output 04/30/22 05/01/22 05/02/22 05/03/22 23:59 23:59 23:59 23:59 Intake Total 5008.713 0079 1965 550 Output Total 200 1 Balance 2702.699 8424 1964 550 - Objective General Appearance: positive: No acute distress, Alert Eyes Bilateral: positive: PERRL, EOMI, No scleral icterus ENT: positive: No signs of dehydration Neck: positive: No JVD, Trachea midline Respiratory: positive: No respiratory distress Abdomen: positive: Non-tender, Other (dressing c/d/i no erythema. good stoma output now) Neurologic/Psychiatric: positive: Oriented x3 - Lab Results Fish Bones: 04/26/22 11:55 04/28/22 16:11 Assessment/Plan - Problem List (1) Bowel perforation Impression: doing well. left hand is in a splint for another week after thumb joint replacement she is unable to care for herself with full hand splint plan d/c snf thursday follow up surgery office prn and thursday05/13/2022
[2022-05-03] MEDS: ACETAMINOPHEN 325 MG TABLET PO PRN (23:44)
[2022-05-04] MEDS: ACETAMINOPHEN 325 MG TABLET PO PRN ×2 (04:44→21:35)
[2022-05-04] MEDS: HEPARIN 5,000 UNIT/ML VIAL SUBQ SCH ×2 (08:05→21:11)
[2022-05-04] MEDS: buPROPion SR 150 MG TABLET PO SCH ×2 (08:06→21:10)
[2022-05-04] MEDS: SENNA 8.6 MG TABLET PO SCH (08:06)
[2022-05-04] MEDS: SODIUM CHLORIDE FLUSH 0.9% 10 ML SYRINGE IVP SCH ×2 (08:07→21:12)
--- NOTE | 2022-05-04 10:46 | PROVIDER PROGRESS NOTE ---
Subjective - Subjective Pt reports feeling: Improved (spoke with nurse. she is up ambulating and bowels now working well) Objective - Vital Signs/Intake & Output Vital Signs: Vital Signs x48h Temp Pulse Resp BP Pulse Ox 05/04/22 08:00 37.1 C 88 20 130/65 95 05/04/22 04:47 84 Intake & Output: Intake & Output 05/01/22 05/02/22 05/03/22 05/04/22 23:59 23:59 23:59 23:59 Intake Total 1987 1964 1949 123 Output Total 200 1 Balance 1788 1963 1949 123 - Objective General Appearance: positive: Alert Respiratory: positive: No respiratory distress Abdomen: positive: Non-tender, No distention (spoke with nurse. scant serous drainage from incision. no cellulitis) - Lab Results Fish Bones: 04/26/22 11:55 04/28/22 16:11 Assessment/Plan - Problem List (1) Bowel perforation Impression: doing well. anticipate d/c to snf tomorrow
[2022-05-05] MEDS: SODIUM CHLORIDE FLUSH 0.9% 10 ML SYRINGE IVP SCH ×3 (00:41→19:16)
[2022-05-05] MEDS: ONDANSETRON 4 MG/2 ML VIAL IVP PRN (01:17)
[2022-05-05] MEDS: SODIUM CHLORIDE FLUSH 0.9% 10 ML SYRINGE IVP PRN ×2 (01:17→13:20)
--- NOTE | 2022-05-05 08:40 | Discharge Plan ---
Discharge Plan Problem Reviewed?: Yes Disposition: SNF DC/Xfer Condition: Good Diet: Regular Activity Restrictions: No Restrictions Shower Restrictions: No Driving Restrictions: No Assistance Devices: Other (left hand splint) Health Concerns: recent bowel perforation and surgery with colectomy and colostomy Plan of Treatment: transfer to alf facility follow up in surgery office thursdaymay 13 call to make an appointment Care Goals: stoma care Assessment: doing well after hand surgery and emergency colostomy. ability to care for herself is limited due to hand splint Additional Instructions or Follow Up instructions: follow up in the surgery office thursdaymay 13 and as needed call to make an appointment [phone] No Smoking: If you smoke, Please STOP! Call for help.
[2022-05-05] MEDS: buPROPion SR 150 MG TABLET PO SCH ×2 (08:51→20:32)
[2022-05-05] MEDS: HEPARIN 5,000 UNIT/ML VIAL SUBQ SCH (08:51)
[2022-05-05] MEDS: ACETAMINOPHEN 325 MG TABLET PO PRN (08:51)
[2022-05-05] MEDS: SENNA 8.6 MG TABLET PO SCH (08:52)
--- NOTE | 2022-05-05 08:52 | DISCHARGE TRANSFER SUMMARY ---
"Transfer Summary Admit Date: 04/26/22 Transfer Date: 05/05/22 Discharging Provider: emma haddad Code Status: Attempt Resuscitation Discharge Disposition: SNF DC/Xfer Discharge Facility Name: [facility] Transfer to Location: [facility] - DIAGNOSES Admission Diagnoses: perforated colon Discharge Diagnoses with Status of Each Condition: transfer in good condition with stoma and left hand splint from recent hand surgery - HPI History of Present Illness: left hand surgery 2 weeks ago and perforated colon 1 week ago requiring colostomy - CONSULTS | PROCEDURES Procedures: as above - HOSPITAL COURSE Hospital Course: uncomplicated. doing well. incision closed. ambulating well and taking diet well. ability to care for herself very limited due to hand splint requires stoma care and daily and as needed dry dressing changes to incision area - ALLERGIES Allergies/Adverse Reactions: Allergies Allergy/AdvReac Type Severity Reaction Status Date / Time budesonide AdvReac Anxiety Verified 04/26/22 12:51 codeine AdvReac Emesis Verified 04/26/22 11:48 fluticasone AdvReac Anxiety Verified 04/26/22 12:51 mometasone furoate AdvReac Anxiety Verified 04/26/22 12:51 - MEDICATIONS Home Medications: Ambulatory Orders Medication Instructions Recorded Confirmed HYDROcod/ACETAM 5/325 [[place] 5/325] 1 - 2 tablet PO Q4HR PRN 04/26/22 04/26/22 Montelukast Sodium 10 mg PO HS 04/26/22 04/26/22 Ondansetron [Ondansetron Odt] 8 mg PO Q8HR PRN 04/26/22 04/26/22 buPROPion [Wellbutrin Sr] 150 mg PO BID 04/26/22 04/26/22 - PHYSICAL EXAM AT DISCHARGE General Appearance: positive: No acute distress, Alert Eyes Bilateral: positive: PERRL, EOMI ENT: positive: No signs of dehydration Neck: positive: No JVD, Trachea midline Respiratory: positive: No respiratory distress Abdomen: positive: Non-tender, No distention, Other (spoke with nurse for pe. dressing c/d/i no erythema) Neurologic/Psychiatric: positive: Oriented x3 - LABS Result Diagrams: 04/26/22 11:55 04/28/22 16:11 - FOLLOW UP Follow Up: call to make an appointment follow up in the surgery office thursday05/13/2022 and as needed"
--- NOTE | 2022-05-05 09:41 | PROVIDER PROGRESS NOTE ---
Subjective - General Admit Date: 04/26/22 Procedure Date: 04/26/22 Post Op Days: 9 Procedure Performed: Laparotomy with colostomy - Review of Systems Wound/Incisions: positive: Healing well General: positive: No symptoms HEENT: positive: No symptoms Pulmonary: positive: No symptoms Cardiovascular: positive: No symptoms Genitourinary: positive: No symptoms - Other Other Information/Narrative: Mrs. Hdez is in excellent spirits and [facility] Unfortunately, the facility is not able to take her today. She says her pain is reasonably well controlled. She says that even if she knew it was not getting get any better than it is now, she could live with it. Her ostomy is working. She is tolerating her diet. She denies any nausea. Objective - Patient Data Reviewed Vital Signs: Yes Vital Signs: Vital Signs x48h Temp Pulse Resp BP Pulse Ox 05/05/22 07:36 36.6 C 91 16 127/70 100 Intake & Output: Intake and Output Totals x24h 05/03/22 05/04/22 05/05/22 23:59 23:59 23:59 Intake Total 1950 2930 500 Output Total 1100 1300 Balance 1950 1830 -800 - Lab Results Lab Results: 04/26/22 11:55 04/28/22 16:11 - Current Medications Current Medications: Current Medications Generic Name Dose Route Start Last Admin Trade Name Freq PRN Reason Stop Dose Admin Acetaminophen 650 mg 04/26/22 16:01 05/05/22 08:51 Acetaminophen 325 Mg Tablet PO 650 mg Q4HR PRN Administration Pain 1 to 4, or Fever Bupropion HCl 150 mg 04/26/22 21:00 05/05/22 08:51 Bupropion Sr 150 Mg Tablet PO 150 mg BID WERO Administration Heparin Sodium (Porcine) 5,000 unit 04/27/22 21:00 05/05/22 08:51 Heparin 5,000 Unit/Ml Vial SUBQ 5,000 unit BID WERO Administration Hydromorphone HCl 0.5 mg 04/26/22 16:01 04/30/22 01:06 Hydromorphone 0.5 Mg/0.5 Ml Syringe IVP 0.5 mg Q2H PRN Administration Pain 8 to 10 Lorazepam 1 mg 04/28/22 16:00 05/02/22 22:23 Lorazepam 1 Mg Tablet PO 1 mg Q6H PRN Administration NEEDED PER PROVIDER ORDERS Ondansetron HCl 4 mg 04/26/22 16:01 04/30/22 21:42 Ondansetron Odt 4 Mg Tablet TL 4 mg Q6HR PRN Administration Nausea / Vomiting Ondansetron HCl 4 mg 04/26/22 16:01 05/05/22 01:17 Ondansetron 4 Mg/2 Ml Vial IVP 4 mg Q6HR PRN Administration Nausea / Vomiting Oxycodone HCl 5 mg 04/26/22 16:01 04/28/22 00:00 Oxycodone 5 Mg Tablet PO 5 mg Q4HR PRN Administration Pain 5 to 7 Senna 8.6 - 17.2 mg 05/01/22 21:00 05/05/22 08:52 Senna 8.6 Mg Tablet PO Not Given DAILY WERO Sodium Chloride 10 ml 04/26/22 16:01 05/05/22 01:17 Sodium Chloride Flush 0.9% 10 Ml Syringe IVP 10 ml PRN PRN Administration NEEDED PER PROVIDER ORDERS Sodium Chloride 10 ml 04/27/22 01:00 05/05/22 08:52 Sodium Chloride Flush 0.9% 10 Ml Syringe IVP 10 ml 0100,0900,1700 WERO Administration - Physical Exam Wound/Incisions: positive: Healing well General Appearance: positive: No acute distress Eyes Bilateral: positive: Normal inspection ENT: positive: ENT inspection nml Neck: positive: Nml inspection Respiratory: positive: Chest non-tender Cardiovascular: positive: Regular rate & rhythm Abdomen: positive: No distention, Tenderness, Other (Ostomy is viable and working. Wound is clean.) Skin: positive: Color nml Extremities: positive: Non-tender Neurologic/Psychiatric: positive: Oriented x3, CN's nml (2-12) ABX Reporting Has patient been on IV antibiotics over the past 48 hours?: No Impression/Plan - Problem List Problem List: 1. Continue current medications 2. Continue daily dressing changes 3. Changed to swing bed status if possible 4. Awaiting transfer [facility].
[2022-05-05] MEDS: PIPERACILLIN/TAZOBACTAM 3.375 GM in SODIUM CHLORIDE 0.9% MINIBAG 100 ML IV SCH ×2 (13:19→19:16)
[2022-05-05] MEDS: MULTIVITAMIN W/MINERALS TABLET PO SCH (15:06)
[2022-05-06] MEDS: PIPERACILLIN/TAZOBACTAM 3.375 GM in SODIUM CHLORIDE 0.9% MINIBAG 100 ML IV SCH ×2 (00:44→07:35)
[2022-05-06] MEDS: SODIUM CHLORIDE FLUSH 0.9% 10 ML SYRINGE IVP SCH ×2 (00:44→08:07)
[2022-05-06 06:13] LABS: BASOPHILS % (AUTO) 0.3 %; EOSINOPHILS # (AUTO) 0.2 10^3/uL (0.0-0.7); EOSINOPHILS % (AUTO) 2.5 %; HCT - HEMATOCRIT 29.2 % (37.0-47.0); HGB - HEMOGLOBIN 9.9 g/dL (12.0-16.0); LYMPHOCYTES # (AUTO) 0.6 10^3/uL (1.5-3.5); MEAN CORPUSCULAR HEMOGLOBIN 32.2 pg (27.0-31.0); MEAN CORPUSCULAR HGB CONC 33.9 g/dL (32.0-36.0); MEAN CORPUSCULAR VOLUME 95.1 fL (81.0-99.0); MEAN PLATELET VOLUME 9.8 fL (7.9-10.8); MONOCYTES # (AUTO) 0.6 10^3/uL (0.0-1.0); MONOCYTES % (AUTO) 8.2 %; NEUTROPHILS # (AUTO) 5.4 10^3/uL (1.5-6.6); NEUTROPHILS % (AUTO) 78.8 %; PLT - PLATELET COUNT 258 10^3/uL (130-450); RED BLOOD COUNT 3.07 10^6/uL (4.20-5.40); RED CELL DISTRIBUTION WIDTH 12.5 % (12.0-15.0); WHITE BLOOD COUNT 6.9 x10^3/uL (4.8-10.8)
[2022-05-06 06:28] LABS: ALBUMIN 2.5 g/dL (3.2-5.5); ALBUMIN/GLOBULIN RATIO 0.9 (1.0-2.2); BILIRUBIN,TOTAL 0.7 mg/dL (0.2-1.0); CALCIUM 7.9 mg/dL (8.5-10.3); CREATININE 0.5 mg/dL (0.4-1.0); POTASSIUM 3.3 mmol/L (3.5-5.0); TOTAL PROTEIN 5.3 g/dL (6.7-8.2)
[2022-05-06] MEDS: SODIUM CHLORIDE FLUSH 0.9% 10 ML SYRINGE IVP PRN (07:36)
[2022-05-06] MEDS: MULTIVITAMIN W/MINERALS TABLET PO SCH (08:06)
[2022-05-06] MEDS: buPROPion SR 150 MG TABLET PO SCH (08:06)
[2022-05-06 08:10] VITALS: BP 126/64
[2022-05-06] MEDS: SENNA 8.6 MG TABLET PO SCH (11:08)
[2022-05-06] MEDS ORDERED: cephALEXin 250 MG CAPSULE PO SCH (12:00)
[2022-05-06] MEDS ORDERED: LACTOBACILLUS RHAMNOSUS GG CAPSULE PO SCH (14:00)
--- NOTE | 2022-05-07 13:57 | DISCHARGE SUMMARY ---
"Discharge Summary Admit Date: 04/26/22 Discharge Date: 05/06/22 Discharging Provider: emma haddad Code Status: Attempt Resuscitation Condition at Discharge: Good Discharge Disposition: [address] DC/Xfer Discharge Facility Name: replaced by [facility] - DIAGNOSES Admission Diagnoses: perforated colon Discharge Diagnoses with Status of Each Condition: transfer to swing bed in good condition following colectomy and colostomy - HPI History of Present Illness: present with ruptured colon and went to surgery urgently for colectomy with colostomy. did well. unremarkable hospital course. 1 week prior to colon rupture she had left hand surgery. left had remains in a splint and she is unable to care for herself until she has recovered from hand surgery. - CONSULTS | PROCEDURES Procedures: as above - HOSPITAL COURSE Hospital Course: as above - ALLERGIES Allergies/Adverse Reactions: Allergies Allergy/AdvReac Type Severity Reaction Status Date / Time budesonide AdvReac Anxiety Verified 04/26/22 12:51 codeine AdvReac Emesis Verified 04/26/22 11:48 fluticasone AdvReac Anxiety Verified 04/26/22 12:51 mometasone furoate AdvReac Anxiety Verified 04/26/22 12:51 - MEDICATIONS Home Medications: Ambulatory Orders Medication Instructions Recorded Confirmed HYDROcod/ACETAM 5/325 [[place] 5/325] 1 - 2 tablet PO Q4HR PRN 04/26/22 05/06/22 Montelukast Sodium 10 mg PO HS 04/26/22 05/06/22 Ondansetron [Ondansetron Odt] 8 mg PO Q8HR PRN 04/26/22 05/06/22 buPROPion [Wellbutrin Sr] 150 mg PO BID 04/26/22 05/06/22 Lactobacillus Rhamnosus GG 1 cap PO DAILY 05/06/22 05/06/22 [Culturelle] - PHYSICAL EXAM AT DISCHARGE General Appearance: positive: No acute distress, Alert Eyes Bilateral: positive: PERRL, EOMI, No scleral icterus ENT: positive: No signs of dehydration Respiratory: positive: No respiratory distress Abdomen: positive: Non-tender, No distention, Other (pink and functional stoma) Neurologic/Psychiatric: positive: Oriented x3 - LABS Result Diagrams: 05/06/22 05:23 05/06/22 05:23 - FOLLOW UP Follow Up: surgery office may 20Thursday [phone]"
== END 2022-05-06 14:29 | disposition swing bed (61) | DRG 331 ==
LOC: ED 11:35 → MS2 13:45
PROVIDERS: ADMIT Surgery; ATTEND Surgery
PROC: 0D1N0Z4 Bypass Sigmoid Colon to Cutaneous, Open Approach (ICD-10-PCS; 2022-04-26)
PROC: 0DBN0ZZ Excision of Sigmoid Colon, Open Approach (ICD-10-PCS; principal; 2022-04-26 14:00)
DX: K63.1 Perforation of intestine (nontraumatic) (principal); K59.00 Constipation, unspecified; Z48.02 Encounter for removal of sutures; R11.0 Nausea; Z20.822 Contact with and (suspected) exposure to COVID-19; Z79.899 Other long term (current) drug therapy; Z85.3 Personal history of malignant neoplasm of breast; Z86.19 Personal history of other infectious and parasitic diseases; Z90.710 Acquired absence of both cervix and uterus; Z88.5 Allergy status to narcotic agent; Z88.8 Allergy status to other drugs, medicaments and biological substances; Z96.692 Finger-joint replacement of left hand
CPT/HCPCS: 36415; 74176; 80048; 80053; 81001; 83690; 85025; 87086; 87635; 96365; 96375; 97010; 97140; 97161; 97166; 97530; 97535; 99284; 99285; A9270; J0131; J1170; J7120; J8499; Q0162; 81003

== ENCOUNTER 2022-08-05 22:44 | Outpatient (CLI) | payer MEDICARE, OTHER | END 2022-08-05 22:45 | disposition critical access hospital (66) | LOC: EMS 22:44 | DX: R10.84 Generalized abdominal pain (principal); R11.2 Nausea with vomiting, unspecified; Z93.3 Colostomy status | CPT/HCPCS: A0425; A0427 ==

== ENCOUNTER 2022-08-05 23:13 | Inpatient (IN) | payer MEDICARE, OTHER ==
[2022-08-05] MEDS ORDERED: MORPHINE 2 MG/ML CARPUJECT IVP STA (23:44)
[2022-08-05] MEDS ORDERED: ONDANSETRON 4 MG/2 ML VIAL IVP STA (23:44)
[2022-08-05] MEDS ORDERED: SODIUM CHLORIDE 0.9% 1,000 ML IV STA (23:45)
[2022-08-06] MEDS ORDERED: DIATRIZOATE MEGLU/DIATRIZO SOD 30 ML BOTTLE PO ONE ×2 (00:04→01:44)
[2022-08-06 00:30] LABS: ALBUMIN 3.8 g/dL (3.2-5.5); ALBUMIN/GLOBULIN RATIO 1.5 (1.0-2.2); BILIRUBIN,TOTAL 0.8 mg/dL (0.2-1.0); CALCIUM 8.8 mg/dL (8.5-10.3); CREATININE 0.5 mg/dL (0.4-1.0); POTASSIUM 3.9 mmol/L (3.5-5.0); TOTAL PROTEIN 6.4 g/dL (6.7-8.2)
--- NOTE | 2022-08-06 01:04 | ED Physician Documentation ---
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 Sanches, [facility]) presents with sudden onset nausea, vomiting, and abdominal pain starting at 3:30 PM after eating some squash. Patient waited several hours before calling EMS due to persistent pain, was presided with Zofran on route without relief and arrived to the emergency department with 9 out of 10 diffuse cramping abdominal pain.Associated with nonbloody nonbloody nonbilious emesis. Patient denies change in stool quality and has had good output from her colostomy bag today. Review of Systems Ten Systems: 10 systems reviewed and negative Constitutional: denies: Fever, Chills Cardiac: denies: Chest pain / pressure Respiratory: denies: Dyspnea GI: reports: Abdominal Pain, Nausea, Vomiting. 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 - Present Medications Home Medications: Ambulatory Orders Medication Instructions Recorded Confirmed HYDROcod/ACETAM 5/325 [[place] 5/325] 1 - 2 tablet PO Q4HR PRN 04/26/22 05/19/22 Montelukast Sodium 10 mg PO HS 04/26/22 05/19/22 Ondansetron [Ondansetron Odt] 8 mg PO Q8HR PRN 04/26/22 05/19/22 buPROPion [Wellbutrin Sr] 150 mg PO BID 04/26/22 05/19/22 Lactobacillus Rhamnosus GG 1 cap PO DAILY 05/06/22 05/19/22 [Culturelle] Amox/Clav 875/125 [Augmentin 1 tablet PO Q12H 6 Days #6 tablet 05/13/22 05/19/22 875/125 Tab] - Allergies Allergies/Adverse Reactions: Allergies Allergy/AdvReac Type Severity Reaction Status Date / Time budesonide AdvReac Anxiety Verified 04/26/22 12:51 codeine AdvReac Emesis Verified 04/26/22 11:48 fluticasone AdvReac Anxiety Verified 04/26/22 12:51 mometasone furoate AdvReac Anxiety Verified 04/26/22 12:51 - Social History Does the pt smoke?: No Smoking Status: Never smoker - POLST Patient has POLST: No POLST Status: Full Code PD ED PE NORMAL - Vitals Vital signs reviewed: Yes - General General: Alert and oriented X 3, Other (mild distress) - HEENT HEENT: Atraumatic, PERRL, EOMI - Neck Neck: Supple, no meningeal sign - Cardiac Cardiac: RRR - Respiratory Respiratory: No respiratory distress, Clear bilaterally - Abdomen Abdomen: Other (diffusely tender to palpation. colostomy pink, well perfused, with soft brown stool extruding from os) - Back Back: No CVA TTP - Derm Derm: Normal color, Warm and dry - Extremities Extremities: No deformity - Neuro Neuro: Alert and oriented X 3 - Psych Psych: Normal mood, Normal affect Results - Vitals Vitals: Vital Signs - 24 hr 08/05/22 08/06/22 23:21 02:27 Temperature 37.3 C Heart Rate 82 75 Respiratory 19 18 Rate Blood Pressure 136/86 H 130/77 O2 Saturation 99 97 Oxygen O2 Source Room air - Labs Labs: Laboratory Tests 08/06/22 08/06/22 08/06/22 00:10 00:10 01:05 WBC 7.6 RBC 4.25 Hgb 13.7 Hct 38.5 MCV 90.6 MCH 32.2 H MCHC 35.6 RDW 12.6 Plt Count 172 MPV 10.4 Neut # (Auto) 7.0 H Lymph # (Auto) 0.3 L [place] # (Auto) 0.3 Eos # (Auto) 0.0 Baso # (Auto) 0.0 Absolute Nucleated RBC 0.00 Nucleated RBC % 0.0 Sodium 134 L Potassium 3.9 Chloride 97 L Carbon Dioxide 28 Anion Gap 9.0 BUN 26 H Creatinine 0.5 Estimated GFR (MDRD) 120 Glucose 166 H Lactic Acid 1.0 Calcium 8.8 Total Bilirubin 0.8 AST 26 ALT 22 Alkaline Phosphatase 47 Total Protein 6.4 L Albumin 3.8 Globulin 2.6 Albumin/Globulin Ratio 1.5 Lipase 30 Urine Color Urine Clarity Urine pH Ur Specific [place] Urine Protein Urine Glucose (UA) Urine Ketones Urine Occult Blood Urine Nitrite Urine Bilirubin Urine Urobilinogen Ur Leukocyte Esterase Urine RBC Urine WBC Ur Squamous Epith Cells Amorphous Sediment Urine Bacteria Urine Culture Comments 08/06/22 01:22 WBC RBC Hgb Hct MCV MCH MCHC RDW Plt Count MPV Neut # (Auto) Lymph # (Auto) [place] # (Auto) Eos # (Auto) Baso # (Auto) Absolute Nucleated RBC Nucleated RBC % Sodium Potassium Chloride Carbon Dioxide Anion Gap BUN Creatinine Estimated GFR (MDRD) Glucose Lactic Acid Calcium Total Bilirubin AST ALT Alkaline Phosphatase Total Protein Albumin Globulin Albumin/Globulin Ratio Lipase Urine Color YELLOW Urine Clarity SL. CLOUDY Urine pH 8.0 H Ur Specific [place] 1.010 Urine Protein NEGATIVE Urine Glucose (UA) NEGATIVE Urine Ketones NEGATIVE Urine Occult Blood NEGATIVE Urine Nitrite NEGATIVE Urine Bilirubin NEGATIVE Urine Urobilinogen 0.2 (NORMAL) Ur Leukocyte Esterase NEGATIVE Urine RBC None Seen Urine WBC 0-3 Ur Squamous Epith Cells RARE Squamous Amorphous Sediment Moderate Urine Bacteria None Seen Urine Culture Comments NOT INDICATED PD MEDICAL DECISION MAKING - ED course ED course: Concern for repeat colonic rupture vs constipation vs kidney stones, volvulus or other etiology. Will obtain labs, CT and treat symptomatically. 4mg IV zofran and IV morphine provided in the ED with resultant resolution of symptoms 1.5h into her ED stay. Patient now awaiting CT. d/w Dr. Willis, gen surgeon data migration consultant for admission for SBO. Will insert NG, keep npo, maintenance fluids. Plan to move to surgical floor pending bed. Departure - Departure Disposition: 66 [facility] DC/Xfer Clinical Impression: Small bowel obstruction, Vomiting, Abdominal pain Condition: Stable
[2022-08-06 01:12] LABS: BASOPHILS % (AUTO) 0.1 %; HCT - HEMATOCRIT 38.5 % (37.0-47.0); HGB - HEMOGLOBIN 13.7 g/dL (12.0-16.0); LYMPHOCYTES # (AUTO) 0.3 10^3/uL (1.5-3.5); LYMPHOCYTES % (AUTO) 4.1 %; MEAN CORPUSCULAR HEMOGLOBIN 32.2 pg (27.0-31.0); MEAN CORPUSCULAR HGB CONC 35.6 g/dL (32.0-36.0); MEAN CORPUSCULAR VOLUME 90.6 fL (81.0-99.0); MEAN PLATELET VOLUME 10.4 fL (7.9-10.8); MONOCYTES # (AUTO) 0.3 10^3/uL (0.0-1.0); MONOCYTES % (AUTO) 3.4 %; NEUTROPHILS % (AUTO) 92.1 %; PLT - PLATELET COUNT 172 10^3/uL (130-450); RED BLOOD COUNT 4.25 10^6/uL (4.20-5.40); RED CELL DISTRIBUTION WIDTH 12.6 % (12.0-15.0); WHITE BLOOD COUNT 7.6 x10^3/uL (4.8-10.8)
[2022-08-06 01:30] LABS: BILIRUBIN,URINE NEGATIVE (NEGATIVE); GLUCOSE, URINE (UA) NEGATIVE (NEGATIVE); KETONES,URINE (UA) NEGATIVE (NEGATIVE); LEUKOCYTE ESTERASE, URINE NEGATIVE (NEGATIVE); NITRITE,URINE NEGATIVE (NEGATIVE); OCCULT BLOOD,URINE NEGATIVE (NEGATIVE); PROTEIN,URINE NEGATIVE (NEGATIVE); UROBILINOGEN,URINE 0.2 (NORMAL) E.U./dL (NORMAL)
[2022-08-06 01:40] LABS: AMORPHOUS SEDIMENT,UR Moderate /LPF; BACTERIA,URINE None Seen /HPF (None Seen); CLARITY,URINE SL. CLOUDY (CLEAR); RBC,URINE None Seen /HPF (0-5); SQUAMOUS EPITHELIAL CELL,UR RARE Squamous (<= Few); WBC,URINE 0-3 /HPF (0-5)
--- NOTE | 2022-08-06 02:04 | CT Report ---
PROCEDURE: Abdomen/Pelvis W INDICATIONS: severe diffuse cramping abdominal pain. hx rupture CONTRAST: IV CONTRAST: Optiray 320 ml: 100 PO CONTRAST: Optiray 320 ml30 TECHNIQUE: After the administration of intravenous contrast, 5 mm thick sections acquired from the diaphragms to the symphysis. 5 mm thick coronal and sagittal reformats were acquired. For radiation dose reducti on, the following was used: automated exposure control, adjustment of mA and/or kV according to kei ent size. COMPARISON: CT abdomen pelvis 04/26/2022. FINDINGS: Image quality: Excellent. Lung bases:There is mild dependent atelectasis bilaterally. Heart: Heart is normal in size. ABDOMEN: Liver: No mass lesion. Gallbladder: Within normal limits without calcified gallstones. Biliary ducts: No biliary ductal dilatation. Pancreas: Unremarkable. Spleen: Normal in size. Adrenal Glands: No adrenal nodules. Kidneys and Ureters: No hydronephrosis. Stomach and Bowel:Postsurgical changes are demonstrated status post partial colonic resection distal ly with a diverting left lower quadrant colostomy. There is distention of multiple loops of small bow el with a transition point in the left paracentral region of the lower abdomen as seen on series 4 im age 62. The findings are consistent with bowel obstruction. More distal loops of small bowel are nond istended. A large amount of colonic stool is present in the cecum as well as moderate stool distentio n in the ascending and transverse colon suggestive of constipation. Peritoneum:There is a small amount of intraperitoneal free fluid. No free air. Ventral Wall: No hernia. Abdominal Nodes: No retroperitoneal or mesenteric adenopathy by size criteria. Vessels: Aorta and inferior vena cava are normal in size. PELVIS: Pelvic Organs:Uterus is surgically absent. Bladder: Unremarkable. Pelvic Nodes: No enlarged lymph nodes. Miscellaneous: No inguinal hernias are seen. Bones: Visualized osseous structures demonstrate no suspicious focal lesions. IMPRESSION: 1. Distended small bowel loops with a transition point in the lower abdomen as described consistent w ith a small bowel obstruction, likely high-grade. 2. Small amount of intraperitoneal free fluid is nonspecific but likely reactive. 3. Postsurgical changes consistent with partial distal colectomy with a diverting left lower quadrant colostomy. 4. Stool distention in the colon suggestive of constipation. The findings were communicated to the ER on 08/06/2022 at 1:57 AM and discussed with Dr. Barraza's nurs e. Reviewed by: Rigo Sanchez MD on 08/06/2022 2:02 AM PDT Approved by: Rigo Sanchez MD on 08/06/2022 2:02 AM PDT Station ID: [id number]
[2022-08-06] MEDS ORDERED: SODIUM CHLORIDE 0.9% 1,000 ML IV STA (02:06)
[2022-08-06] MEDS ORDERED: METOCLOPRAMIDE 10 MG/2 ML VIAL IVP STA (02:48)
[2022-08-06] MEDS ORDERED: MORPHINE 2 MG/ML CARPUJECT IVP STA ×2 (02:48→07:02)
[2022-08-06] MEDS ORDERED: SODIUM CHLORIDE FLUSH 0.9% 10 ML SYRINGE IVP PRN (06:12)
[2022-08-06] MEDS ORDERED: MORPHINE 2 MG/ML CARPUJECT IVP PRN (06:12)
[2022-08-06] MEDS ORDERED: PHENOL THROAT SPRAY 177 ML MM PRN (06:12)
[2022-08-06] MEDS ORDERED: ONDANSETRON 4 MG/2 ML VIAL IVP STA (06:46)
--- NOTE | 2022-08-06 07:11 | SURGERY HX AND PHYSICAL(T) ---
Surgical History & Physical - Chief Complaint/HPI Chief Complaint: abdominal pain, n/v History of Present Illness: This is a very pleasant 77-year-old female who presents with a 10-hour history of abdominal pain. 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 She has an end colostomy and is working with Dr. Sanches at [facility] regarding possible colostomy takedown [facility]. Patient did have a colonoscopy approximately [address] Sanches. Patient states that she has been having soft output from her colostomy since her colonoscopy last week. She has had decreased output in the last 24 hours, but reports continued output. After eating some squash for lunch, the patient reports the acute onset of diffuse, sharp abdominal pain and had several episodes of nausea and vomiting. Her vomitus was nonbloody and not on bilious. She does not know of any history of previous bowel obstruction. She denies any history of similar pain in the past. The patient reports that she lives at home with her who has lost his vision and ambulates independently at baseline. - PMH/PSH/Social Hx Does the pt have a hx of MRSA?: No Neurological History: None Respiratory: Asthma Gastrointestinal: Hepatitis, Other Urinary: None Musculoskeletal: None Psychiatric: Depression PMH Other: ruptured colon with ostomy bag 04/2022 General: Bowel surgery (Devon's procedure 04/26/22, Dr. Light), Other (hysterectomy, mastectomy) Orthopedic: Other (hand) Smoking Status: Never smoker Does the pt drink ETOH?: No Does the pt have substance abuse?: No - Family Hx Family Hx: Other (Mother: breast, ovarian, kidney ca) - Home Meds and Allergies Home Medications: HYDROcod/ACETAM 5/325 [Tsaile 5/325] 1 - 2 tablet PO Q4HR PRN 04/26/22 Montelukast Sodium 10 mg PO HS 04/26/22 Ondansetron [Ondansetron Odt] 8 mg PO Q8HR PRN 04/26/22 buPROPion [Wellbutrin Sr] 150 mg PO BID 04/26/22 Lactobacillus Rhamnosus GG [Culturelle] 1 cap PO DAILY 05/06/22 Allergies/Adverse Reactions: Allergies Allergy/AdvReac Type Severity Reaction Status Date / Time budesonide AdvReac Anxiety Verified 04/26/22 12:51 codeine AdvReac Emesis Verified 04/26/22 11:48 fluticasone AdvReac Anxiety Verified 04/26/22 12:51 mometasone furoate AdvReac Anxiety Verified 04/26/22 12:51 - Review of Systems Constitutional: Other (A complete 10 point review of symptoms is otherwise negative except for that noted in HPI and PMH.) - Vital Signs Heart Rate: 83 Blood Pressure: 114/63 Temperature: 37.2 C Respiratory Rate: 16 O2 Saturation: 97 Weight (kg): 56 kg Height: 1.63 m - Physical Exam General Appearance: positive: No acute distress, Alert Eyes Bilatera: positive: PERRL, EOMI ENT: positive: Dry mucous membranes Neck: positive: Nml inspection Respiratory: positive: Chest non-tender, No respiratory distress Cardiovascular: positive: Regular rate & rhythm Peripheral Pulses: positive: 2+ Abdomen: positive: Tenderness (Diffuse, mild, most notable just to the right of the patient's colostomy.), Other (LLQ colostomy pink with several firm, small balls of stool in bag). negative: No distention (Markedly distended), Guarding, Rebound Skin: positive: Color nml Extremities: positive: Non-tender, Full ROM, No pedal edema Neurologic/Psychiatric: positive: Oriented x3 - Patient Review Patient Review: Problems were reviewed with the patient during this visit. Medications were reviewed with the patient during this visit. Allergies were reviewed this patient during this visit. Pertinent Tests Reviewed: All pertitent test for this patient were reviewed. - Assessment & Plan Assessment and Plan: This is a 77-year-old female with: 1. Small bowel obstruction The patient's history, physical, and imaging are consistent with this diagnosis. There are no signs of free air or perforation. There is been some difficulty placing an NG tube overnight. I gave specific instructions to the ED staff on how they might have better success this morning. If they are unable to place an NG at bedside, plan for placement under fluoroscopy later this morning. -Once the NG is in place, plan for decompression for 12 to 24 hours and then will trial a small bowel follow-through and watch for resolution of symptoms. I am hopeful that this will be successful I did discuss with the patient the possibility that surgical intervention may be needed. She is agreeable to this plan of care. The patient will remain n.p.o. until return of bowel function but may have ice chips for comfort and mouth swabs. Maintenance IV fluids, pain, nausea medications have been ordered 2. Constipation This appears to be a chronic problem for the patient. She has very hard output in her ostomy and significant stool burden in her cecum -Small bowel follow-through should alleviate her constipation as the contrast is very concentrated and pulls a significant amount of water with it as it moves to the colon. I discussed with the patient that she should be on a chronic regimen of stool softeners and that the goal for her ostomy output is that it would be significantly more loose than that which I see in her back today. 3. Depression I will hold the patient's home medication while she is n.p.o., with plan to resume when she is able to tolerate an oral diet 4. Asthma The patient takes montelukast as needed. We will hold this at this time The patient has been admitted to the floor in guarded condition. My plan would be that she can discharge home once she has return of bowel function, hopefully without surgery. Full code DVT prophylaxisSCDs
[2022-08-06] MEDS ORDERED: LIDOCAINE VISCOUS 2% 15 ML UDC MM STA (08:35)
--- NOTE | 2022-08-06 09:26 | XRAY Report ---
PROCEDURE: Chest for Line Placement INDICATIONS: CONFIRM NG TUBE PLACEMENT TECHNIQUE: One view of the chest was acquired. COMPARISON: 04/26/2022 FINDINGS: Surgical changes and devices: NG tube tip is below the left hemidiaphragm and is in the expected loc ation of proximal stomach lumen and can be advanced by 5 to 6 cm. Lungs and pleura: No pleural effusions or pneumothorax. Lungs are clear. Mediastinum: Mediastinal contours appear normal. Heart size is normal. Bones and chest wall: No suspicious bony lesions. Overlying soft tissues appear unremarkable. IMPRESSION: NG tube tip appears to be in the expected location of GE junction/proximal stomach lumen. This can be advanced by 5 to 6 cm. No focal infiltrate, pleural effusion or pneumothorax. Reviewed by: Bernard Zuleta MD on 08/06/2022 9:24 AM PDT Approved by: Bernard Zuleta MD on 08/06/2022 9:24 AM PDT Station ID: [id number]
[2022-08-06] MEDS: LACTATED RINGERS 1,000 ML IV SCH ×2 (09:44→18:51)
[2022-08-06] MEDS: SODIUM CHLORIDE FLUSH 0.9% 10 ML SYRINGE IVP SCH ×2 (09:45→17:06)
--- NOTE | 2022-08-06 11:33 | XRAY Report ---
PROCEDURE: Chest for Line Placement INDICATIONS: NGT placement TECHNIQUE: One view of the chest was acquired. COMPARISON: Chest x-ray 07/29/2022 FINDINGS: Surgical changes and devices: Nasogastric tube is present distal tip projecting below the left hemid iaphragm. Lungs and pleura: No pleural effusions or pneumothorax. Lungs are clear. Mediastinum: Mediastinal contours appear normal. Heart size is normal. Bones and chest wall: No suspicious bony lesions. Overlying soft tissues appear unremarkable. IMPRESSION: Nasogastric tube in appropriate position as above. Reviewed by: Esha Cox MD on 08/06/2022 11:32 AM PDT Approved by: Esha Cox MD on 08/06/2022 11:32 AM PDT Station ID: [id number]
[2022-08-06 12:52] LABS: CALCIUM 8.6 mg/dL (8.5-10.3); CREATININE 0.7 mg/dL (0.4-1.0); POTASSIUM 3.7 mmol/L (3.5-5.0)
[2022-08-06] MEDS: ONDANSETRON 4 MG/2 ML VIAL IVP PRN ×2 (13:01→18:51)
[2022-08-07] MEDS: SODIUM CHLORIDE FLUSH 0.9% 10 ML SYRINGE IVP SCH ×3 (00:36→16:36)
[2022-08-07] MEDS: LACTATED RINGERS 1,000 ML IV SCH ×2 (05:03→14:16)
[2022-08-07 05:14] LABS: HGB - HEMOGLOBIN 10.9 g/dL (12.0-16.0); MEAN CORPUSCULAR HEMOGLOBIN 32.1 pg (27.0-31.0); MEAN CORPUSCULAR HGB CONC 34.1 g/dL (32.0-36.0); MEAN CORPUSCULAR VOLUME 94.1 fL (81.0-99.0); MEAN PLATELET VOLUME 10.5 fL (7.9-10.8); RED BLOOD COUNT 3.4 10^6/uL (4.20-5.40); RED CELL DISTRIBUTION WIDTH 13.2 % (12.0-15.0); WHITE BLOOD COUNT 3.6 x10^3/uL (4.8-10.8)
[2022-08-07 05:26] LABS: CALCIUM 8.3 mg/dL (8.5-10.3); CREATININE 0.6 mg/dL (0.4-1.0); POTASSIUM 3.9 mmol/L (3.5-5.0)
--- NOTE | 2022-08-07 07:58 | PROVIDER PROGRESS NOTE ---
Subjective - General Admit Date: 08/06/22 Procedure Date: 04/26/22 Post Op Days: 103 - Other Other Information/Narrative: Pain improved. She has not needed morphine since yesterday AM. NG in place with 600mL out since placement. Nausea improving. Patient states she is feeling "much better" today and describes her abdomen as sore. +hard, pellet stool output yesterday and overnight, small amount. No acute events overnight. Objective - Patient Data Reviewed Vital Signs: Yes Vital Signs: Vital Signs x48h Temp Pulse Resp BP Pulse Ox 08/07/22 07:24 36.7 C 75 16 111/48 L 93 08/07/22 04:29 36.6 C 69 16 98/48 L 93 Weight: Weight 08/05/22 08/06/22 08/07/22 23:59 23:59 23:59 Weight (kg) 56 kg 53.5 kg Intake & Output: Intake and Output Totals x24h 08/05/22 08/06/22 08/07/22 23:59 23:59 23:59 Intake Total 3081.667 1000 Output Total 300 200 Balance 2781.667 800 - Lab Results Lab Results: 08/07/22 04:43 08/07/22 04:43 Other Lab Results: Lab Results x24hrs 08/07/22 08/07/22 08/06/22 Range/Units 04:43 04:43 12:33 WBC 3.6 L (4.8-10.8) x10^3/uL RBC 3.40 L (4.20-5.40) 10^6/uL Hgb 10.9 L (12.0-16.0) g/dL Hct 32.0 L (37.0-47.0) % MCV 94.1 (81.0-99.0) fL MCH 32.1 H (27.0-31.0) pg MCHC 34.1 (32.0-36.0) g/dL RDW 13.2 (12.0-15.0) % Plt Count 138 (130-450) 10^3/uL MPV 10.5 (7.9-10.8) fL Sodium 136 137 (135-145) mmol/L Potassium 3.9 3.7 (3.5-5.0) mmol/L Chloride 103 100 L (101-111) mmol/L Carbon Dioxide 29 30 (21-32) mmol/L Anion Gap 4.0 L 7.0 (6-13) BUN 12 14 (6-20) mg/dL Creatinine 0.6 0.7 (0.4-1.0) mg/dL Estimated GFR (MDRD) 97 82 L (>89) Glucose 96 108 H (70-100) mg/dL Calcium 8.3 L 8.6 (8.5-10.3) mg/dL - Imaging Results Radiology Imaging: positive: Other (I personally reviewed the image from the patient's KUB this AM which demonstrates contrast throughout the colon.) - Current Medications Current Medications: Current Medications Generic Name Dose Route Start Last Admin Trade Name Freq PRN Reason Stop Dose Admin Lactated Ringer's 1,000 mls @ 100 mls/hr 08/06/22 07:00 08/07/22 05:03 Lr IV 100 mls/hr .Q10H WERO Administration Ondansetron HCl 4 mg 08/06/22 06:12 08/06/22 18:51 Ondansetron 4 Mg/2 Ml Vial IVP 4 mg Q6HR PRN Administration Nausea / Vomiting Phenol/Menthol 2 sprays 08/06/22 06:12 08/06/22 11:12 Phenol Throat [place] 177 Ml MM 2 sprays Q1H PRN Administration PAIN Sodium Chloride 10 ml 08/06/22 09:00 08/07/22 00:36 Sodium Chloride Flush 0.9% 10 Ml Syringe IVP Not Given 0100,0900,1700 [facility] - Physical Exam General Appearance: positive: No acute distress, Alert Eyes Bilateral: positive: Normal inspection, Other (NG in L nare) Neck: positive: Nml inspection Respiratory: positive: Chest non-tender, No respiratory distress Cardiovascular: positive: Regular rate & rhythm, No murmur Abdomen: positive: No distention, Tenderness (very mild, diffuse ttp), Other (ostomy pink and productive of stool balls). negative: Guarding, Rebound, Mass Skin: positive: Color nml Extremities: positive: Non-tender, Full ROM Neurologic/Psychiatric: positive: Oriented x3 Impression/Plan - Problem List Problem List: 77 y/o F with: 1. Small bowel obstruction, resolving NG in place. Plan to clamp and do trial of PO liquids with mirilax given contrast in colon and significant constipation. Will check residual in 6 hours, and if low, plan to remove later today and adat. 2. Constipation This appears to be a chronic problem for the patient. She has very hard output in her ostomy and significant stool burden in her cecum I discussed with the patient that she should be on a chronic regimen of stool softeners and that the goal for her ostomy output is that it would be significantly more soft/loose than that which I see in her back today. Plan to discharge on fiber, colace, and miralax. 3. Depression I will restart the patient's home meds this AM 4. Asthma The patient takes montelukast as needed. Available, if needed. Continue care on floor. My plan would be that she can discharge home once she has return of bowel function, hopefully without surgery. Full code DVT prophylaxisSCDs
--- NOTE | 2022-08-07 08:17 | XRAY Report ---
PROCEDURE: Abdomen 1 View X-Ray INDICATIONS: OBSTRUCTION TECHNIQUE: One view of the abdomen acquired. COMPARISON: CT dated 08/06/2022 FINDINGS: Surgical changes and devices: NGT is present, tip of which projects over the gastric lumen. Bowel: Bowel gas pattern is normal. Contrast within the right colon is present. Soft tissues: No suspicious abdominal calcifications. Visualized solid organ contours appear normal in size. Bones: No suspicious bony lesions. IMPRESSION: No evidence of bowel obstruction. Reviewed by: Argelia York MD on 08/07/2022 8:16 AM PDT Approved by: Argelia York MD on 08/07/2022 8:16 AM PDT Station ID: [id number]
[2022-08-07] MEDS ORDERED: polyethylene glycoL 3350 238 GM BOTTLE PO ONE (09:00)
--- NOTE | 2022-08-07 11:34 | PHARMACY PROGRESS NOTE ---
- Best Possible Medication History Admit Date and Time: 08/06/22611 Processed by: Pharmacy Medication History completed: Yes Secondary Source(s): Prescription bottles, Pharmacy records, Insurance records As the person ultimately responsible for medication therapy, providers are able to order a medication from an existing home medication list in [facility] via the "Reconcile Routine" prior to Confirmation of that medication by residential support specialist. Such practice is discouraged except when the physician, in their clinical judgment, deems that a medical need exists for a medication without regard to previous use.
[2022-08-08] MEDS: SODIUM CHLORIDE FLUSH 0.9% 10 ML SYRINGE IVP SCH (02:03)
[2022-08-08 05:21] LABS: HCT - HEMATOCRIT 32.3 % (37.0-47.0); HGB - HEMOGLOBIN 10.8 g/dL (12.0-16.0); MEAN CORPUSCULAR HEMOGLOBIN 31.7 pg (27.0-31.0); MEAN CORPUSCULAR HGB CONC 33.4 g/dL (32.0-36.0); MEAN CORPUSCULAR VOLUME 94.7 fL (81.0-99.0); MEAN PLATELET VOLUME 10.6 fL (7.9-10.8); RED BLOOD COUNT 3.41 10^6/uL (4.20-5.40); RED CELL DISTRIBUTION WIDTH 13.1 % (12.0-15.0); WHITE BLOOD COUNT 3.5 x10^3/uL (4.8-10.8)
--- NOTE | 2022-08-08 08:07 | Discharge Plan ---
Discharge Plan Problem Reviewed?: Yes Disposition: Home, Self Care Condition: Good Prescriptions: polyethylene glycoL 3350 [Miralax] 4 ea PO DAILY #238 gm Diet: Regular Activity Restrictions: No Restrictions Shower Restrictions: No Driving Restrictions: No Weight Bearing: Full Weight No Smoking: If you smoke, Please STOP! Call for help.
--- NOTE | 2022-08-08 08:16 | DISCHARGE SUMMARY ---
"Discharge Summary Admit Date: 08/06/22 Discharge Date: 08/08/22 Discharging Provider: Lazaro Hennessy Status: Attempt Resuscitation Condition at Discharge: Good Discharge Disposition: 01 Home, Self Care - DIAGNOSES Admission Diagnoses: small bowel obstruction Discharge Diagnoses with Status of Each Condition: chronic constipation causing obstruction. - obstruction is resolved - constipation controlled, improved - HPI History of Present Illness: Patient admitted with one day of severe abdominal pain, nausea, and vomiting. History of bowel perforation with colostomy in place. - CONSULTS | PROCEDURES Procedures: none - HOSPITAL COURSE Hospital Course: The patient was admitted and an NG tube was placed for decompression. On HD #2, most of the oral contrast given in the ED had moved into the colon and her nausea had resolved. She was started on a gentle bowel prep which she tolerated very well. She did not have any further nausea. She had a good result with the bowel prep. She was then able to tolerate a regular diet. She will be discharged with a bowel regimen. I will have her follow up with me in clinic in two weeks. - ALLERGIES Allergies/Adverse Reactions: Allergies Allergy/AdvReac Type Severity Reaction Status Date / Time budesonide AdvReac Anxiety Verified 04/26/22 12:51 codeine AdvReac Emesis Verified 04/26/22 11:48 fluticasone AdvReac Anxiety Verified 04/26/22 12:51 mometasone furoate AdvReac Anxiety Verified 04/26/22 12:51 - MEDICATIONS Home Medications: Ambulatory Orders Medication Instructions Recorded Confirmed Montelukast Sodium 10 mg PO HS 04/26/22 08/07/22 buPROPion HCL [Bupropion Xl] 150 mg PO DAILY 08/06/22 08/07/22 polyethylene glycoL 3350 [Miralax] 4 ea PO DAILY #238 gm 08/08/22 - PHYSICAL EXAM AT DISCHARGE General Appearance: positive: No acute distress, Alert Eyes Bilateral: positive: Normal inspection, PERRL, EOMI ENT: positive: ENT inspection nml Neck: positive: Nml inspection Respiratory: positive: Chest non-tender, No respiratory distress Cardiovascular: positive: Regular rate & rhythm Peripheral Pulses: positive: 2+ Abdomen: positive: Non-tender, No distention, Other (ostomy pink and productive of soft stool). negative: Guarding, Rebound Skin: positive: Color nml, No rash Extremities: positive: Non-tender, Full ROM Neurologic/Psychiatric: positive: Oriented x3 - LABS Result Diagrams: 08/08/22 05:05 08/07/22 04:43 - FOLLOW UP Follow Up: in clinic with me in 2 weeks - TIME SPENT Time Spent in Discharge (Minutes): 35"
[2022-08-08 08:33] VITALS: BP 113/62
--- NOTE | 2022-08-08 08:40 | XRAY Report ---
PROCEDURE: Abdomen 1 View X-Ray INDICATIONS: obstruction/constipation, assess stool burden TECHNIQUE: One view of the abdomen acquired. COMPARISON: Abdomen radiographs 08/07/2022, CT abdomen pelvis 08/06/2022. FINDINGS: Surgical changes and devices: Left lower quadrant ostomy not well seen.. Bowel: Nonobstructive bowel gas pattern. Oral contrast present on the previous exam is no longer visi ble. Amount of stool present in the colon is unremarkable. Soft tissues: No suspicious abdominal calcifications. Bones: No suspicious bony lesions. IMPRESSION: Nonobstructive bowel gas pattern. Oral contrast present on the previous exam is no longer visible. Am ount of stool present in the colon is unremarkable. Reviewed by: Cristo Carrillo MD on 08/08/2022 8:39 AM PDT Approved by: Cristo Carrillo MD on 08/08/2022 8:39 AM PDT Station ID: [id number]
[2022-08-08] MEDS ORDERED: buPROPion XL 150 MG TABLET PO SCH (09:00)
[2022-08-08] MEDS ORDERED: MONTELUKAST 10 MG TABLET PO SCH (21:00)
== END 2022-08-08 09:28 | disposition home or self-care (01) | DRG 390 ==
LOC: EDUNIT# → ED 23:13 → MS2 08-06 06:12
PROVIDERS: ADMIT Surgery; ATTEND Surgery
DX: K56.609 Unspecified intestinal obstruction, unspecified as to partial versus complete obstruction (principal); Z20.822 Contact with and (suspected) exposure to COVID-19; K59.09 Other constipation; J45.909 Unspecified asthma, uncomplicated; F32.A Depression, unspecified; Z90.49 Acquired absence of other specified parts of digestive tract; Z93.3 Colostomy status
CPT/HCPCS: 36415; 74018; 74177; 80048; 80053; 81001; 83605; 83690; 85025; 85027; 87635; 96361; 96374; 96375; 96376; 99284; 99285; A9270; J2765; J7120; Q9963; Q9967; 87086

== ENCOUNTER 2022-08-28 09:30 | Inpatient (IN) | payer MEDICARE, OTHER ==
[2022-08-28] MEDS ORDERED: LACTATED RINGERS 1,000 ML IV STA (09:38)
[2022-08-28 09:56] LABS: BILIRUBIN,URINE NEGATIVE (NEGATIVE); GLUCOSE, URINE (UA) NEGATIVE (NEGATIVE); KETONES,URINE (UA) TRACE mg/dL (NEGATIVE); LEUKOCYTE ESTERASE, URINE NEGATIVE (NEGATIVE); NITRITE,URINE NEGATIVE (NEGATIVE); OCCULT BLOOD,URINE TRACE-INTA (NEGATIVE); PROTEIN,URINE NEGATIVE (NEGATIVE); UROBILINOGEN,URINE 0.2 (NORMAL) E.U./dL (NORMAL)
[2022-08-28 09:57] LABS: CLARITY,URINE CLEAR (CLEAR)
[2022-08-28 09:59] LABS: BASOPHILS % (AUTO) 0.3 %; EOSINOPHILS % (AUTO) 0.3 %; HCT - HEMATOCRIT 43.2 % (37.0-47.0); HGB - HEMOGLOBIN 14.8 g/dL (12.0-16.0); LYMPHOCYTES # (AUTO) 0.6 10^3/uL (1.5-3.5); LYMPHOCYTES % (AUTO) 7.8 %; MEAN CORPUSCULAR HGB CONC 34.3 g/dL (32.0-36.0); MEAN CORPUSCULAR VOLUME 90.4 fL (81.0-99.0); MEAN PLATELET VOLUME 9.7 fL (7.9-10.8); MONOCYTES # (AUTO) 0.4 10^3/uL (0.0-1.0); MONOCYTES % (AUTO) 5.4 %; NEUTROPHILS # (AUTO) 6.1 10^3/uL (1.5-6.6); NEUTROPHILS % (AUTO) 86.1 %; PLT - PLATELET COUNT 186 10^3/uL (130-450); RED BLOOD COUNT 4.78 10^6/uL (4.20-5.40); RED CELL DISTRIBUTION WIDTH 12.3 % (12.0-15.0); WHITE BLOOD COUNT 7.1 x10^3/uL (4.8-10.8)
[2022-08-28 10:12] LABS: ALBUMIN 4.7 g/dL (3.2-5.5); ALBUMIN/GLOBULIN RATIO 1.6 (1.0-2.2); BILIRUBIN,TOTAL 0.8 mg/dL (0.2-1.0); CALCIUM 9.7 mg/dL (8.5-10.3); CREATININE 0.7 mg/dL (0.4-1.0); POTASSIUM 4.3 mmol/L (3.5-5.0); TOTAL PROTEIN 7.6 g/dL (6.7-8.2)
--- NOTE | 2022-08-28 10:39 | CT Report ---
PROCEDURE: ABDOMEN/PELVIS WO INDICATIONS: abd pain TECHNIQUE: Noncontrast 5 mm thick sections acquired from the diaphragms to the symphysis. 5 mm coronal and sagi ttal reformats were then performed. For radiation dose reduction, the following was used: automated exposure control, adjustment of mA and/or kV according to patient size. COMPARISON: X-ray abdomen 08/08/2022, CT abdomen pelvis 08/06/2022 FINDINGS: Image quality: Excellent. ABDOMEN: Lung bases: Lung bases are clear. Heart size is normal. Solid organs: Liver and spleen are normal in size. Gallbladder is unremarkable Pancreas is normal in contours. No adrenal nodules. Kidneys are normal in size, without hydronephrosis. Punctate nonob structing left renal calculus is present. Peritoneum and bowel: Left lower quadrant ostomy is present. Loops of bowel are poorly evaluated seco ndary to lack of both IV and oral contrast. It is noted that there is partial colonic resection. Alth ough poorly characterized, there is distention of fluid-filled bowel loops relatively similar compare d to prior exam. Stool is present throughout the visualized colon. Nodes and vessels: No retroperitoneal or mesenteric adenopathy by size criteria. Aorta and inferior vena cava are normal in caliber. Miscellaneous: No ventral hernias. PELVIS: Genitourinary: Bladder wall thickness is normal. Miscellaneous: No inguinal hernias or adenopathy. Bones: No suspicious bony lesions. No vertebral body compression fractures. IMPRESSION: Limited exam secondary to lack of both oral and IV contrast. Persistent mild fluid-filled prominence of small bowel loops consistent with partial small bowel obst ruction. Postsurgical changes reflecting partial distal colectomy and left lower quadrant diverting ostomy. Reviewed by: Esha Cox MD on 08/28/2022 10:38 AM PDT Approved by: Esha Cox MD on 08/28/2022 10:38 AM PDT Station ID: [id number]
--- NOTE | 2022-08-28 10:44 | ED Physician Documentation ---
PD HPI ABD PAIN - Stated complaint Stated Complaint: FEMALE - Chief complaint Chief Complaint: Abd Pain - History obtained from History obtained from: Patient - Additional information Additional information: The patient comes to the emergency department with chief complaint of abdominal pain that started around 2:00 this morning. She states that she has been a little bit nauseated but has not vomited. She did not have any output into her colostomy bag until taking 3 MiraLAX, after which she began to notice output. The patient has a complicated history of colon rupture with subsequent colostomy placement in [place]. She has been seen by our surgery team here, as well, for subsequent bowel obstructions. The patient called the on-call line and was able to speak with Dr. Bowen, our on-call surgeon, who requested that she come here and be evaluated. Patient denies worsening of abdominal pain at this point. She actually states she feels a little better but still has some cramps and was up most of the night with the same. No blood in her stool. No other complaints at this time. Review of Systems Ten Systems: 10 systems reviewed and negative Constitutional: reports: Reviewed and negative Eyes: reports: Reviewed and negative Ears: reports: Reviewed and negative Nose: reports: Reviewed and negative Throat: reports: Reviewed and negative Cardiac: reports: Reviewed and negative Respiratory: reports: Reviewed and negative GI: reports: Abdominal Pain, Nausea : reports: Reviewed and negative Skin: reports: Reviewed and negative Musculoskeletal: reports: Reviewed and negative Neurologic: reports: Reviewed and negative Psychiatric: reports: Reviewed and negative Endocrine: reports: Reviewed and negative Immunocompromised: reports: Reviewed and negative PD PAST MEDICAL HISTORY - Past Medical History Cardiovascular: Other Respiratory: Asthma Neuro: None GI: Hepatitis, Other : None Psych: Depression Musculoskeletal: None - Past Surgical History Past Surgical History: Yes General: Bowel surgery, Other Ortho: Other /BOX LINER: Hysterectomy, Mastectomy - Present Medications Home Medications: Ambulatory Orders Medication Instructions Recorded Confirmed Montelukast Sodium 10 mg PO HS 04/26/22 08/28/22 buPROPion HCL [Bupropion Xl] 150 mg PO DAILY 08/06/22 08/28/22 Albuterol Sulf [Ventolin Hfa 2 puffs INH Q4H PRN 08/28/22 08/28/22 Inhaler] Estradiol [Vagifem] 10 mcg VG .TWICE WEEKLY 08/28/22 08/28/22 Multivitamin W/Minerals [Theragran 1 each PO DAILY 08/28/22 08/28/22 M] Triamcinolone 0.1% Oint [Kenalog 1 applic TOP BID PRN 08/28/22 08/28/22 0.1% Oint] Vsl#3:Lactob/S.thermophl/Bifid 1 each PO BIDWM 08/28/22 08/28/22 [Vsl#3] polyethylene glycoL 3350 [Miralax] 1 each PO DAILY 08/28/22 08/28/22 - Allergies Allergies/Adverse Reactions: Allergies Allergy/AdvReac Type Severity Reaction Status Date / Time budesonide AdvReac Anxiety Verified 04/26/22 12:51 codeine AdvReac Emesis Verified 04/26/22 11:48 fluticasone AdvReac Anxiety Verified 04/26/22 12:51 mometasone furoate AdvReac Anxiety Verified 04/26/22 12:51 - Social History Does the pt smoke?: No Smoking Status: Never smoker Does the pt drink ETOH?: No Does the pt have substance abuse?: No - POLST Patient has POLST: No POLST Status: Full Code PD ED PE NORMAL - Vitals Vital signs reviewed: Yes - General General: Alert and oriented X 3, No acute distress, Well developed/nourished - HEENT HEENT: Atraumatic, PERRL, EOMI, Moist mucous membranes - Neck Neck: Supple, no meningeal sign - Cardiac Cardiac: RRR, No murmur - Respiratory Respiratory: No respiratory distress, Clear bilaterally - Abdomen Abdomen: Soft, Non tender, Other (Mild abdominal distention; colostomy appears healthy with mild output of brown, soft stool into the bag) - Derm Derm: Warm and dry - Extremities Extremities: No deformity - Neuro Neuro: Alert and oriented X 3 - Psych Psych: Normal mood, Normal affect Results - Vitals Vitals: Vital Signs - 24 hr 08/28/22 08/28/22 08/28/22 09:35 12:02 12:05 Temperature 36.7 C 36.7 C Heart Rate 85 68 85 Heart Rate [ Brachial] Respiratory 17 19 17 Rate Blood Pressure 129/76 113/60 129/76 Blood Pressure [Right Brachial artery] O2 Saturation 99 98 99 08/28/22 08/28/22 08/28/22 13:49 15:53 21:00 Temperature 36.3 C L 36.5 C Heart Rate Heart Rate [ 77 80 78 Brachial] Respiratory 16 20 18 Rate Blood Pressure Blood Pressure 137/82 H 110/45 L 122/65 [Right Brachial artery] O2 Saturation 100 98 97 08/29/22 08/29/22 00:17 04:58 Temperature 36.6 C 37.3 C Heart Rate Heart Rate [ 80 94 Brachial] Respiratory 16 18 Rate Blood Pressure Blood Pressure 118/57 L 121/61 [Right Brachial artery] O2 Saturation 95 95 Oxygen O2 Source Room air - Labs Labs: Laboratory Tests 08/28/22 08/28/22 08/28/22 09:36 09:53 09:55 WBC 7.1 RBC 4.78 Hgb 14.8 Hct 43.2 MCV 90.4 MCH 31.0 MCHC 34.3 RDW 12.3 Plt Count 186 MPV 9.7 Neut # (Auto) 6.1 Lymph # (Auto) 0.6 L Moca # (Auto) 0.4 Eos # (Auto) 0.0 Baso # (Auto) 0.0 Absolute Nucleated RBC 0.00 Nucleated RBC % 0.0 Sodium Potassium Chloride Carbon Dioxide Anion Gap BUN Creatinine Estimated GFR (MDRD) Glucose Calcium Phosphorus Magnesium Total Bilirubin AST ALT Alkaline Phosphatase Total Protein Albumin Globulin Albumin/Globulin Ratio Lipase Urine Color YELLOW Urine Clarity CLEAR Urine pH 6.0 Ur Specific [place] 1.010 Urine Protein NEGATIVE Urine Glucose (UA) NEGATIVE Urine Ketones TRACE Urine Occult Blood TRACE-INTA Urine Nitrite NEGATIVE Urine Bilirubin NEGATIVE Urine Urobilinogen 0.2 (NORMAL) Ur Leukocyte Esterase NEGATIVE Ur Microscopic Review NOT INDICATED Urine Culture Comments NOT INDICATED Nasal Adenovirus (PCR) NOT DETECTED Nasal B. parapertussis DNA (PCR) NOT DETECTED Nasal Coronavir 229E PCR NOT DETECTED Nasal Coronavir HKU1 PCR NOT DETECTED Nasal Coronavir NL63 PCR NOT DETECTED Nasal Coronavir OC43 PCR NOT DETECTED Nasal Enterovir/Rhinovir PCR NOT DETECTED Nasal Influenza B PCR NOT DETECTED Nasal Influenza A PCR NOT DETECTED Nasal Parainfluen 1 PCR NOT DETECTED Nasal Parainfluen 2 PCR NOT DETECTED Nasal Parainfluen 3 PCR NOT DETECTED Nasal Parainfluen 4 PCR NOT DETECTED Nasal RSV (PCR) NOT DETECTED Nasal B.pertussis DNA PCR NOT DETECTED Nasal C.pneumoniae (PCR) NOT DETECTED Joseph Human Metapneumo PCR NOT DETECTED Nasal M.pneumoniae (PCR) NOT DETECTED Nasal SARS-CoV-2 (PCR) NOT DETECTED 08/28/22 08/29/22 08/29/22 09:55 04:51 04:51 WBC 5.1 RBC 4.33 Hgb 13.4 Hct 40.4 MCV 93.3 MCH 30.9 MCHC 33.2 RDW 12.7 Plt Count 192 MPV 10.0 Neut # (Auto) 3.8 Lymph # (Auto) 0.8 L Moca # (Auto) 0.5 Eos # (Auto) 0.0 Baso # (Auto) 0.0 Absolute Nucleated RBC 0.00 Nucleated RBC % 0.0 Sodium 134 L 137 Potassium 4.3 4.0 Chloride 97 L 99 L Carbon Dioxide 26 26 Anion Gap 11.0 12.0 BUN 21 H 15 Creatinine 0.7 0.7 Estimated GFR (MDRD) 82 L 82 L Glucose 117 H 125 H Calcium 9.7 8.8 Phosphorus Magnesium Total Bilirubin 0.8 AST 27 ALT 19 Alkaline Phosphatase 56 Total Protein 7.6 Albumin 4.7 Globulin 2.9 Albumin/Globulin Ratio 1.6 Lipase 41 Urine Color Urine Clarity Urine pH Ur Specific [place] Urine Protein Urine Glucose (UA) Urine Ketones Urine Occult Blood Urine Nitrite Urine Bilirubin Urine Urobilinogen Ur Leukocyte Esterase Ur Microscopic Review Urine Culture Comments Nasal Adenovirus (PCR) Nasal B. parapertussis DNA (PCR) Nasal Coronavir 229E PCR Nasal Coronavir HKU1 PCR Nasal Coronavir NL63 PCR Nasal Coronavir OC43 PCR Nasal Enterovir/Rhinovir PCR Nasal Influenza B PCR Nasal Influenza A PCR Nasal Parainfluen 1 PCR Nasal Parainfluen 2 PCR Nasal Parainfluen 3 PCR Nasal Parainfluen 4 PCR Nasal RSV (PCR) Nasal B.pertussis DNA PCR Nasal C.pneumoniae (PCR) Joseph Human Metapneumo PCR Nasal M.pneumoniae (PCR) Nasal SARS-CoV-2 (PCR) 08/29/22 04:51 WBC RBC Hgb Hct MCV MCH MCHC RDW Plt Count MPV Neut # (Auto) Lymph # (Auto) Moca # (Auto) Eos # (Auto) Baso # (Auto) Absolute Nucleated RBC Nucleated RBC % Sodium Potassium Chloride Carbon Dioxide Anion Gap BUN Creatinine Estimated GFR (MDRD) Glucose Calcium Phosphorus 4.8 H Magnesium 2.2 Total Bilirubin AST ALT Alkaline Phosphatase Total Protein Albumin Globulin Albumin/Globulin Ratio Lipase Urine Color Urine Clarity Urine pH Ur Specific [place] Urine Protein Urine Glucose (UA) Urine Ketones Urine Occult Blood Urine Nitrite Urine Bilirubin Urine Urobilinogen Ur Leukocyte Esterase Ur Microscopic Review Urine Culture Comments Nasal Adenovirus (PCR) Nasal B. parapertussis DNA (PCR) Nasal Coronavir 229E PCR Nasal Coronavir HKU1 PCR Nasal Coronavir NL63 PCR Nasal Coronavir OC43 PCR Nasal Enterovir/Rhinovir PCR Nasal Influenza B PCR Nasal Influenza A PCR Nasal Parainfluen 1 PCR Nasal Parainfluen 2 PCR Nasal Parainfluen 3 PCR Nasal Parainfluen 4 PCR Nasal RSV (PCR) Nasal B.pertussis DNA PCR Nasal C.pneumoniae (PCR) Joseph Human Metapneumo PCR Nasal M.pneumoniae (PCR) Nasal SARS-CoV-2 (PCR) PD MEDICAL DECISION MAKING - ED course Complexity details: reviewed results, re-evaluated patient, considered differential, d/w patient ED course: The patient was treated symptomatically and worked up with labs, urinalysis, and CT abdomen and pelvis without contrast. This did show distention of the small intestine and stomach. Labs were unremarkable. Dr. Bowen saw the patient in the emergency department and placed NG tube. He will admit her to the hospital for small bowel obstruction. Departure - Departure Disposition: [facility] DC/Xfer Clinical Impression: Small bowel obstruction Condition: Serious Discharge Date/Time: 08/28/22 12:19
[2022-08-28 11:05] LABS: B. PARAPERTUSSIS- RESP PCR PAN NOT DETECTED; B. PERTUSSIS- RESP PCR PANEL NOT DETECTED; C. PNEUMONIAE- RESP PCR PANEL NOT DETECTED; CORONAVIRUS 229E-RESP PCR NOT DETECTED; CORONAVIRUS HKU1-RESP PCR NOT DETECTED; CORONAVIRUS NL63-RESP PCR NOT DETECTED; CORONAVIRUS OC43-RESP PCR NOT DETECTED; HUMAN METAPNEUMOVIRUS NOT DETECTED; INFLUENZA A- RESP PCR PANEL NOT DETECTED; INFLUENZA B - RESP PCR PANEL NOT DETECTED; M. PNEUMONIAE- RESP PCR PANEL NOT DETECTED; PARAINFLUENZA VIRUS 1 NOT DETECTED; PARAINFLUENZA VIRUS 2 NOT DETECTED; PARAINFLUENZA VIRUS 3 NOT DETECTED; PARAINFLUENZA VIRUS 4 NOT DETECTED; RHINOVIRUS/ENTEROVIRUS NOT DETECTED; RSV- RESP PCR PANEL NOT DETECTED; SARS-CoV-2 -RESP PCR PANEL NOT DETECTED
[2022-08-28] MEDS ORDERED: HYDROmorphone 1 MG/ML CARPUJECT IVP STA (11:21)
[2022-08-28] MEDS ORDERED: ONDANSETRON 4 MG/2 ML VIAL IVP STA (11:21)
--- NOTE | 2022-08-28 11:51 | SURGERY HX AND PHYSICAL(T) ---
Surgical History & Physical - Chief Complaint/HPI Chief Complaint: Abdominal cramping History of Present Illness: Leyda is a 77 year old female who underwent sigmoid colectomy and colostomy this summer for perforated diverticulitis. Her post op course has been uncomplicated except for a partial small bowel obstruction treated non- operatively about 3 weeks ago. Since then she has been eating normally and having normal bowel motions via her colostomy. This morning around 0200 she developed severe lower abdominal cramping which lasted about 4 hours. She took 3 doses of Miralax and evacuated a large amount of stool from her colostomy but the cramping, while much less, was still presen t. She was able to contact me using the [employer] phone system and as she felt bloated and nauseated, I asked that she come to the ED for evaluation and probable admission for what sounds like a recurrent, partial small bowel obstruction. In the ED she did not appear ill but admitted that she was nauseated and still having cramps. - PMH/PSH/Social Hx Does the pt have a hx of MRSA?: No Neurological History: None Eyes, Ears, Nose, Throat: None Cardiovascular: None, Other Respiratory: Asthma Skin: None (Recent history of perforated diverticulitis) Gastrointestinal: Hepatitis, Other Is Patient ?: No Urinary: None Musculoskeletal: None Psychiatric: Depression PMH Other: Left breast cancer General: Bowel surgery, Other Orthopedic: Other PSH Other: Left mastectomy for breast cancer Smoking Status: Never smoker Does the pt drink ETOH?: No Does the pt have substance abuse?: No - Family Hx Family Hx: Other (Mother with breast, ovarian, and skin cancer) - Home Meds and Allergies Home Medications: Montelukast Sodium 10 mg PO HS 04/26/22 buPROPion HCL [Bupropion Xl] 150 mg PO DAILY 08/06/22 polyethylene glycoL 3350 [Miralax] 1 each PO DAILY 08/28/22 Allergies/Adverse Reactions: Allergies Allergy/AdvReac Type Severity Reaction Status Date / Time budesonide AdvReac Anxiety Verified 04/26/22 12:51 codeine AdvReac Emesis Verified 04/26/22 11:48 fluticasone AdvReac Anxiety Verified 04/26/22 12:51 mometasone furoate AdvReac Anxiety Verified 04/26/22 12:51 - Review of Systems Constitutional: Weight loss Gastrointestinal: Nausea, Abdominal pain - Vital Signs Heart Rate: 85 Blood Pressure: 129/76 Temperature: 98.1 F Respiratory Rate: 17 O2 Saturation: 99 Weight (kg): 50.349 kg Height: 1.63 m - Physical Exam General Appearance: positive: No acute distress, Alert Eyes Bilatera: positive: Normal inspection ENT: positive: Pharynx nml Neck: positive: Nml inspection Respiratory: positive: Chest non-tender, No respiratory distress, Breath sounds nml Cardiovascular: positive: Regular rate & rhythm Peripheral Pulses: positive: 2+ Abdomen: positive: No organomegaly, Other (Mild distension with tympanic percussion note throughout; Hyperactive bowel sounds) Skin: positive: Color nml Extremities: positive: Full ROM Neurologic/Psychiatric: positive: Oriented x3 - Patient Review Patient Review: Problems were reviewed with the patient during this visit. Medications were reviewed with the patient during this visit. Allergies were reviewed this patient during this visit. Pertinent Tests Reviewed: All pertitent test for this patient were reviewed. - Assessment & Plan Assessment and Plan: Images: CT ABD/Pelvis - Dilated, fluid filled loops of small bowel; The small bowel in the pelvis appears to be normal in caliber but without contrast it is difficult to accurately evaluate. The stomach is distended with air. There is gas and a large fecal burden in the colon. No free fluid, pneumatosis, or free air. No mesenteric twist seen. Assessment: 1) Recurrent SBO - likely partial as she is having some lower bowel activity. There is no clinical, lab, or image evidence of ischemic bowel. Plan: 1) I inserted a 16F NGT into the left nare and began low intermittent suction 2) RL at 100 ml/hr 3) Gastrograffin tracer study once some of the bowel distension has resolved. 4) Daily labs 5) Operative intervention will be offered if medical management fails to resolve the obstruction.
[2022-08-28] MEDS: LACTATED RINGERS 1,000 ML IV SCH ×2 (11:52→20:45)
--- NOTE | 2022-08-28 12:47 | PHARMACY PROGRESS NOTE ---
- Best Possible Medication History Admit Date and Time: 08/28/22 1121 Processed by: Pharmacy Medication History completed: Yes Patient Interview: Completed Secondary Source(s): Physician records (PT REMEMBERS MEDS WELL. ALSO PULLED UP [place] DURING INTERVIEW.), Insurance records As the person ultimately responsible for medication therapy, providers are able to order a medication from an existing home medication list in [facility] via the "Reconcile Routine" prior to Confirmation of that medication by ict support and test engineers. Such practice is discouraged except when the physician, in their clinical judgment, deems that a medical need exists for a medication without regard to previous use.
[2022-08-28] MEDS ORDERED: HEPARIN 5,000 UNIT/ML VIAL SUBQ SCH (14:00)
--- NOTE | 2022-08-28 14:04 | PROVIDER PROGRESS NOTE ---
Progress Note Patient remains comfortable. NGT in place and functional. Abdomen is soft but somewhat distended; No stool or flatus yet. Plan: Gastrografin small bowel challenge
[2022-08-28] MEDS ORDERED: DIATRIZOATE MEGLU/DIATRIZO SOD 30 ML BOTTLE PO ONE (15:06)
[2022-08-28] MEDS: ONDANSETRON 4 MG/2 ML VIAL IVP PRN ×2 (17:06→21:24)
[2022-08-28] MEDS: SODIUM CHLORIDE FLUSH 0.9% 10 ML SYRINGE IVP SCH (17:10)
[2022-08-28] MEDS: HYDROmorphone 0.5 MG/0.5 ML SYRINGE IVP PRN ×2 (17:10→22:23)
--- NOTE | 2022-08-28 19:08 | PROVIDER PROGRESS NOTE ---
Progress Note S: Leyda is comfortable. She has not passed flatus or had a BM yet but her abdominal pain has resolved except for occasional minor cramping. She does admit to nausea, however. O: VSS, Afeb; Alert; Comfortable; Abdomen is soft and non-tender. the colostomy in the LLQ has a small amount of stool in the pouch but this is unchanged from earlier today. Her 1400 KUB shows contrast in the proximal jejunum and her 1800 image shows that the contrast has been diluted, is located in distended small bowel loops in the pelvis, and there is no evidence of movement into the right colon. A: SBO, partial vs complete - awaiting completion of the contrast image study. P: No new orders for tonight; KUB at 0700 tomorrow. I explained to her that if she is not improved and the contrast has not moved into the colon, surgery will be offered. Austin Bowen MD General Surgery Service
[2022-08-28] MEDS: HEPARIN 5,000 UNIT/ML VIAL SUBQ SCH (21:28)
[2022-08-28] MEDS: PROCHLORPERAZINE 10 MG/2 ML VIAL IVP PRN (22:48)
[2022-08-29] MEDS: SODIUM CHLORIDE FLUSH 0.9% 10 ML SYRINGE IVP SCH ×3 (00:15→18:10)
[2022-08-29 05:04] LABS: BASOPHILS % (AUTO) 0.4 %; EOSINOPHILS % (AUTO) 0.4 %; HCT - HEMATOCRIT 40.4 % (37.0-47.0); HGB - HEMOGLOBIN 13.4 g/dL (12.0-16.0); LYMPHOCYTES # (AUTO) 0.8 10^3/uL (1.5-3.5); LYMPHOCYTES % (AUTO) 16.1 %; MEAN CORPUSCULAR HEMOGLOBIN 30.9 pg (27.0-31.0); MEAN CORPUSCULAR HGB CONC 33.2 g/dL (32.0-36.0); MEAN CORPUSCULAR VOLUME 93.3 fL (81.0-99.0); MONOCYTES # (AUTO) 0.5 10^3/uL (0.0-1.0); MONOCYTES % (AUTO) 9.9 %; NEUTROPHILS # (AUTO) 3.8 10^3/uL (1.5-6.6); PLT - PLATELET COUNT 192 10^3/uL (130-450); RED BLOOD COUNT 4.33 10^6/uL (4.20-5.40); RED CELL DISTRIBUTION WIDTH 12.7 % (12.0-15.0); WHITE BLOOD COUNT 5.1 x10^3/uL (4.8-10.8)
[2022-08-29 05:09] LABS: CALCIUM 8.8 mg/dL (8.5-10.3); CREATININE 0.7 mg/dL (0.4-1.0)
[2022-08-29] MEDS: ONDANSETRON 4 MG/2 ML VIAL IVP PRN ×2 (05:34→17:21)
[2022-08-29] MEDS: HYDROmorphone 0.5 MG/0.5 ML SYRINGE IVP PRN (05:35)
[2022-08-29] MEDS: LACTATED RINGERS 1,000 ML IV SCH ×3 (05:37→21:24)
--- NOTE | 2022-08-29 08:01 | PROVIDER PROGRESS NOTE ---
Subjective - General Admit Date: 08/28/22 - Review of Systems Gastrointestinal: positive: Other (Occasional lower abdominal cramping; Minimal nausea; No vomiting; No stool but now with gas in the ostomy pouch) Objective - Patient Data Vital Signs: Vital Signs x48h Temp Pulse Resp BP Pulse Ox 08/29/22 04:58 99.1 F 94 18 121/61 95 08/29/22 00:17 97.9 F 80 16 118/57 L 95 Weight: Weight 08/27/22 08/28/22 08/29/22 23:59 23:59 23:59 Weight (kg) 51.5 kg Intake & Output: Intake and Output Totals x24h 08/27/22 08/28/22 08/29/22 23:59 23:59 23:59 Intake Total 1888.333 886.667 Output Total 350 400 Balance 1538.333 486.667 - Lab Results Lab Results: 08/29/22 04:51 08/29/22 04:51 Other Lab Results: Lab Results x24hrs 08/29/22 08/29/22 08/28/22 Range/Units 04:51 04:51 09:55 WBC 5.1 (4.8-10.8) x10^3/uL RBC 4.33 (4.20-5.40) 10^6/uL Hgb 13.4 (12.0-16.0) g/dL Hct 40.4 (37.0-47.0) % MCV 93.3 (81.0-99.0) fL MCH 30.9 (27.0-31.0) pg MCHC 33.2 (32.0-36.0) g/dL RDW 12.7 (12.0-15.0) % Plt Count 192 (130-450) 10^3/uL MPV 10.0 (7.9-10.8) fL Neut # (Auto) 3.8 (1.5-6.6) 10^3/uL Lymph # (Auto) 0.8 L (1.5-3.5) 10^3/uL [place] # (Auto) 0.5 (0.0-1.0) 10^3/uL Eos # (Auto) 0.0 (0.0-0.7) 10^3/uL Baso # (Auto) 0.0 (0.0-0.1) 10^3/uL Absolute Nucleated RBC 0.00 x10^3/uL Nucleated RBC % 0.0 /100WBC Sodium 137 134 L (135-145) mmol/L Potassium 4.0 4.3 (3.5-5.0) mmol/L Chloride 99 L 97 L (101-111) mmol/L Carbon Dioxide 26 26 (21-32) mmol/L Anion Gap 12.0 11.0 (6-13) BUN 15 21 H (6-20) mg/dL Creatinine 0.7 0.7 (0.4-1.0) mg/dL Estimated GFR (MDRD) 82 L 82 L (>89) Glucose 125 H 117 H (70-100) mg/dL Calcium 8.8 9.7 (8.5-10.3) mg/dL Total Bilirubin 0.8 (0.2-1.0) mg/dL AST 27 (10-42) IU/L ALT 19 (10-60) IU/L Alkaline Phosphatase 56 (42-121) IU/L Total Protein 7.6 (6.7-8.2) g/dL Albumin 4.7 (3.2-5.5) g/dL Globulin 2.9 (2.1-4.2) g/dL Albumin/Globulin Ratio 1.6 (1.0-2.2) Lipase 41 (22-51) U/L Urine Color Urine Clarity (CLEAR) Urine pH (5.0-7.5) PH Ur Specific [place] (1.002-1.030) Urine Protein (NEGATIVE) mg/dL Urine Glucose (UA) (NEGATIVE) mg/dL Urine Ketones (NEGATIVE) mg/dL Urine Occult Blood (NEGATIVE) Urine Nitrite (NEGATIVE) Urine Bilirubin (NEGATIVE) Urine Urobilinogen (NORMAL) E.U./dL Ur Leukocyte Esterase (NEGATIVE) Ur Microscopic Review Urine Culture Comments Nasal Adenovirus (PCR) Nasal B. parapertussis DNA (PCR) Nasal Coronavir 229E PCR Nasal Coronavir HKU1 PCR Nasal Coronavir NL63 PCR Nasal Coronavir OC43 PCR Nasal Enterovir/Rhinovir PCR Nasal Influenza B PCR Nasal Influenza A PCR Nasal Parainfluen 1 PCR Nasal Parainfluen 2 PCR Nasal Parainfluen 3 PCR Nasal Parainfluen 4 PCR Nasal RSV (PCR) Nasal B.pertussis DNA PCR Nasal C.pneumoniae (PCR) Joseph Human Metapneumo PCR Nasal M.pneumoniae (PCR) Nasal SARS-CoV-2 (PCR) 08/28/22 08/28/22 08/28/22 Range/Units 09:55 09:53 09:36 WBC 7.1 (4.8-10.8) x10^3/uL RBC 4.78 (4.20-5.40) 10^6/uL Hgb 14.8 (12.0-16.0) g/dL Hct 43.2 (37.0-47.0) % MCV 90.4 (81.0-99.0) fL MCH 31.0 (27.0-31.0) pg MCHC 34.3 (32.0-36.0) g/dL RDW 12.3 (12.0-15.0) % Plt Count 186 (130-450) 10^3/uL MPV 9.7 (7.9-10.8) fL Neut # (Auto) 6.1 (1.5-6.6) 10^3/uL Lymph # (Auto) 0.6 L (1.5-3.5) 10^3/uL [place] # (Auto) 0.4 (0.0-1.0) 10^3/uL Eos # (Auto) 0.0 (0.0-0.7) 10^3/uL Baso # (Auto) 0.0 (0.0-0.1) 10^3/uL Absolute Nucleated RBC 0.00 x10^3/uL Nucleated RBC % 0.0 /100WBC Sodium (135-145) mmol/L Potassium (3.5-5.0) mmol/L Chloride (101-111) mmol/L Carbon Dioxide (21-32) mmol/L Anion Gap (6-13) BUN (6-20) mg/dL Creatinine (0.4-1.0) mg/dL Estimated GFR (MDRD) (>89) Glucose (70-100) mg/dL Calcium (8.5-10.3) mg/dL Total Bilirubin (0.2-1.0) mg/dL AST (10-42) IU/L ALT (10-60) IU/L Alkaline Phosphatase (42-121) IU/L Total Protein (6.7-8.2) g/dL Albumin (3.2-5.5) g/dL Globulin (2.1-4.2) g/dL Albumin/Globulin Ratio (1.0-2.2) Lipase (22-51) U/L Urine Color YELLOW Urine Clarity CLEAR (CLEAR) Urine pH 6.0 (5.0-7.5) PH Ur Specific [place] 1.010 (1.002-1.030) Urine Protein NEGATIVE (NEGATIVE) mg/dL Urine Glucose (UA) NEGATIVE (NEGATIVE) mg/dL Urine Ketones TRACE (NEGATIVE) mg/dL Urine Occult Blood TRACE-INTA (NEGATIVE) Urine Nitrite NEGATIVE (NEGATIVE) Urine Bilirubin NEGATIVE (NEGATIVE) Urine Urobilinogen 0.2 (NORMAL) (NORMAL) E.U./dL Ur Leukocyte Esterase NEGATIVE (NEGATIVE) Ur Microscopic Review NOT INDICATED Urine Culture Comments NOT INDICATED Nasal Adenovirus (PCR) NOT DETECTED Nasal B. parapertussis DNA (PCR) NOT DETECTED Nasal Coronavir 229E PCR NOT DETECTED Nasal Coronavir HKU1 PCR NOT DETECTED Nasal Coronavir NL63 PCR NOT DETECTED Nasal Coronavir OC43 PCR NOT DETECTED Nasal Enterovir/Rhinovir PCR NOT DETECTED Nasal Influenza B PCR NOT DETECTED Nasal Influenza A PCR NOT DETECTED Nasal Parainfluen 1 PCR NOT DETECTED Nasal Parainfluen 2 PCR NOT DETECTED Nasal Parainfluen 3 PCR NOT DETECTED Nasal Parainfluen 4 PCR NOT DETECTED Nasal RSV (PCR) NOT DETECTED Nasal B.pertussis DNA PCR NOT DETECTED Nasal C.pneumoniae (PCR) NOT DETECTED Joseph Human Metapneumo PCR NOT DETECTED Nasal M.pneumoniae (PCR) NOT DETECTED Nasal SARS-CoV-2 (PCR) NOT DETECTED - Imaging Results Radiology Imaging: positive: Other (KUB this morning shows dilute contrast in the right colon. Small bowel distension persists) - Current Medications Current Medications: Current Medications Generic Name Dose Route Start Last Admin Trade Name Freq PRN Reason Stop Dose Admin Heparin Sodium (Porcine) 5,000 unit 08/28/22 21:00 08/28/22 21:28 Heparin 5,000 Unit/Ml Vial SUBQ 5,000 unit BID WERO Administration Hydromorphone HCl 0.5 mg 08/28/22 11:21 08/29/22 05:35 Hydromorphone 0.5 Mg/0.5 Ml Syringe IVP 0.5 mg Q2H PRN Administration PAIN Ondansetron HCl 4 mg 08/28/22 11:28 08/29/22 05:34 Ondansetron 4 Mg/2 Ml Vial IVP 4 mg Q4HR PRN Administration Nausea / Vomiting Prochlorperazine Edisylate 10 mg 08/28/22 22:35 08/28/22 22:48 Prochlorperazine 10 Mg/2 Ml Vial IVP 10 mg Q6HR PRN Administration Nausea / Vomiting Sodium Chloride 10 ml 08/28/22 17:00 08/29/22 05:35 Sodium Chloride Flush 0.9% 10 Ml Syringe IVP 10 ml 0100,0900,1700 WERO Administration - Physical Exam General Appearance: positive: No acute distress, Alert Eyes Bilateral: positive: Normal inspection ENT: positive: Other (NGT in place and functional) Respiratory: positive: Breath sounds nml Cardiovascular: positive: Regular rate & rhythm Abdomen: positive: Non-tender, Nml bowel sounds, No distention, Other (Ostomy pouch distended with air and small amount of liquid stool) Extremities: positive: Full ROM Neurologic/Psychiatric: positive: Oriented x3 ABX Reporting Has patient been on IV antibiotics over the past 48 hours?: No Impression/Plan - Problem List Problem List: Assessment: 1) Recurrent SBO - it seems as if there has been some resolution of the obstruction with the flatus in the pouch and contrast in the right colon. I suspect that she has a fixed kink or narrowing and despite the favorable clinical and image results, may ultimately require exploration if there is no continued improvement. Plan: 1) Continue IV fluids and NGT decompression 2) Ambulate today 3) Low dose Ketorolac for it's anti-inflammatory properties 4) Check Mg and Phos 5) Exploratory laparotomy if she does not improve or if she worsens today
[2022-08-29 08:11] LABS: MAGNESIUM 2.2 mg/dL (1.7-2.8); PHOSPHORUS 4.8 mg/dL (2.5-4.6)
--- NOTE | 2022-08-29 09:00 | XRAY Report ---
PROCEDURE: SBFT Challenge Panel INDICATIONS: SBO, PARTIAL VS COMPLETE COMPARISON: CT abdomen 08/28/2022 FINDINGS: KUB: Preprocedural windmill mechanic film demonstrates a normal bowel gas pattern. No suspicious abdominal calc ifications. Visualized solid organ contours appear normal. No suspicious bony abnormalities. Nasog astric tube is present. Small bowel: Initial film demonstrates contrast within the stomach extending to the duodenal C-loop as well as proximal small bowel. Contrast is noted to be progressing through the small bowel at subse quent film 3 1/2 hours later. Final film approximately 15 hours later demonstrates minimal residual c ontrast in the stomach. Remaining contrast throughout the colon is faintly visualized extending into the distal colon. There is a persistent appearance of dilated bowel loops although slightly less prom inent when compared to prior CT. IMPRESSION: There is appearance of contrast extending into the colon with mild residual contrast noted in the sto mach. Overall appearance considering dilated bowel loops is most consistent with partial small bowel obstruction. Reviewed by: Esha Cox MD on 08/29/2022 8:59 AM PDT Approved by: Esha Cox MD on 08/29/2022 8:59 AM PDT Station ID: [id number]
[2022-08-29] MEDS: HEPARIN 5,000 UNIT/ML VIAL SUBQ SCH ×2 (09:20→21:19)
--- NOTE | 2022-08-29 12:07 | PROVIDER PROGRESS NOTE ---
Progress Note Leyda feels much better. There has been no abdominal cramping, nausea, vomiting. But she has not passed stool from the ostomy yet. I am of the opinion that she probably has a fixed kink or narrowing of the small bowel but as she is improving I am not compelled to offer her exploratory laparotomy just yet. I have decided to clamp the NGT and offer her a clear liquid diet. If her symptoms recur, she will be offered surgery otherwise we will remove the NGT and advance her diet as tolerated. Austin Bowen MD General surgery Service
[2022-08-29] MEDS: KETOROLAC 15 MG/ML VIAL IVP SCH ×2 (12:08→18:10)
[2022-08-29] MEDS ORDERED: MAGNESIUM HYDROXIDE 2,400 MG/30 ML UDC PO PRN (15:32)
--- NOTE | 2022-08-29 15:38 | PROVIDER PROGRESS NOTE ---
Progress Note S: Leyda has had her NGT clamped since noon and has tolerated a clear liquid diet. She passed some air and stool from the ostomy. Her abdominal cramps have resolved. She has no abdominal pain, nausea, or emesis. O: VSS afeb; Abdomen is soft, non-distended; BS active; Ostomy with small amount of recent stool A: Clinically improved. She may benefit from a mild laxative to eliminate her colonic fecal load seen on initial CT. P: 1) Keep NGT in for awhile - she is OK with this. Continue to offer clear liquids and I will order one dose of MOM. The NGT can be removed if her bowel activity continues to increase. 2) What worries me is that she may have a high grade partial small bowel obstruction that won't allow much more oral intake than liquids. I explained to her that if she regresses with abdominal cramps, nausea, or abdominal pain, I will recommend exploratory laparotomy. 3) Ambulate in [place] Austin Bowen MD General Surgery Service
[2022-08-29] MEDS: PROCHLORPERAZINE 10 MG/2 ML VIAL IVP PRN (22:12)
[2022-08-30] MEDS: KETOROLAC 15 MG/ML VIAL IVP SCH ×5 (00:02→23:35)
[2022-08-30] MEDS: SODIUM CHLORIDE FLUSH 0.9% 10 ML SYRINGE IVP SCH ×4 (00:02→23:36)
[2022-08-30] MEDS: LACTATED RINGERS 1,000 ML IV SCH ×4 (05:16→19:37)
[2022-08-30] MEDS: SODIUM CHLORIDE FLUSH 0.9% 10 ML SYRINGE IVP PRN ×3 (05:48→22:32)
--- NOTE | 2022-08-30 07:15 | PROVIDER PROGRESS NOTE ---
Progress Note S: Leyda did not tolerate the NGT clamping last night. She was nauseated and started to have cramps again so the NGT was placed back to LIS. She passed no air or stool from the colostomy. At the present time she is comfortable. O: VSS afeb; Lungs clear; Heart NSR; Abdomen is soft but distended again with tympany throughout. There is no tenderness. BS are hyperactive; the ostomy pouch has no new stool and no air Labs: 08/29/22 Na 137, K 4.0, BUN 15, Cr 0.7 H/H 40.4/13.4, WBC 5.1 A: High grade small bowel obstruction. the patient has failed non-operative management and I recommend exploratory laparotomy P: Exploratory laparotomy, lysis of adhesions, possible small bowel excision Consent: Leyda has been counseled for the procedure (Exploratory laparotomy, lysis of adhesions, possible small bowel resection), it's indications, risks, benefits and expected outcome as well as alternative therapies. We specifically discussed risks associated with anesthesia, bleeding, infection, and possible injury to surrounding structures which may require additional surgery. We also discussed the possible need for a blood transfusion with its risks and benefits. Leyda requests that we proceed with the procedure as outlined in our discussion. In my medical opinion, considering (1) the potential harm to the patient's health and well-being, including the risks associated with the patient unde rgoing a procedure and delaying the procedure during the COVID-19 pandemic, and (2) the health care resources available to the patient in the hospital and the broader community during and after the procedure, I recommend that the patient proceed with the procedure. Leyda understands, agrees, and consents to the proposed operative strategy and requests that we proceed with the procedure as outlined in our discussion. Sigifredo Bowen MD, [facility] General Surgery Service
[2022-08-30] MEDS: HEPARIN 5,000 UNIT/ML VIAL SUBQ SCH ×2 (07:59→21:15)
[2022-08-30] MEDS ORDERED: ceFAZolin 1 GM in SODIUM CHLORIDE 0.9% MINIBAG 100 ML IV SCH (08:00)
--- NOTE | 2022-08-30 08:08 | ANESTHESIA ---
Pre-Anesthesia VS, & Labs - Diagnosis small bowel obstruction - Procedure exploratory laparotomy, release of small bowel obstruction Vital Signs: Temp Pulse Resp BP Pulse Ox O2 Flow Rate 36.4 C L 77 16 111/58 L 94 08/30/22 04:17 08/30/22 07:48 08/30/22 07:48 08/30/22 07:48 08/30/22 07:48 Height: 5 ft 4 in Weight (kg): 51.5 kg Body Mass Index: 19.5 BMI Classification: Normal - NPO >8 hours - Is Patient ?: No - Lab Results Current Lab Results: Laboratory Tests 08/29/22 04:51: Phosphorus 4.8 H, Magnesium 2.2 08/29/22 04:51: Sodium 137, Potassium 4.0, Chloride 99 L, Carbon Dioxide 26, Anion Gap 12.0, BUN 15, Creatinine 0.7, Estimated GFR (MDRD) 82 L, Glucose 125 H , Calcium 8.8 08/29/22 04:51: WBC 5.1, RBC 4.33, Hgb 13.4, Hct 40.4, MCV 93.3, MCH 30.9, MCHC 33.2, RDW 12.7, Plt Count 192, MPV 10.0, Neut # (Auto) 3.8, Lymph # (Auto) 0.8 L , [place] # (Auto) 0.5, Eos # (Auto) 0.0, Baso # (Auto) 0.0, Absolute Nucleated RBC 0.00, Nucleated RBC % 0.0 08/28/22 09:55: Sodium 134 L, Potassium 4.3, Chloride 97 L, Carbon Dioxide 26, Anion Gap 11.0, BUN 21 H, Creatinine 0.7, Estimated GFR (MDRD) 82 L, Glucose 117 H, Calcium 9.7, Total Bilirubin 0.8, AST 27, ALT 19, Alkaline Phosphatase 56, Total Protein 7.6, Albumin 4.7, Globulin 2.9, Albumin/Globulin Ratio 1.6, Lipase 41 08/28/22 09:55: WBC 7.1, RBC 4.78, Hgb 14.8, Hct 43.2, MCV 90.4, MCH 31.0, MCHC 34.3, RDW 12.3, Plt Count 186, MPV 9.7, Neut # (Auto) 6.1, Lymph # (Auto) 0.6 L, [place] # (Auto) 0.4, Eos # (Auto) 0.0, Baso # (Auto) 0.0, Absolute Nucleated RBC 0.00, Nucleated RBC % 0.0 Fish Bones: 08/29/22 04:51 08/29/22 04:51 Home Medications and Allergies Home Medications: Ambulatory Orders Albuterol Sulf [Ventolin Hfa Inhaler] 2 puffs INH Q4H PRN 08/28/22 Estradiol [Vagifem] 10 mcg VG .TWICE WEEKLY 08/28/22 Multivitamin W/Minerals [Theragran M] 1 each PO DAILY 08/28/22 Triamcinolone 0.1% Oint [Kenalog 0.1% Oint] 1 applic TOP BID PRN 08/28/22 Vsl#3:Lactob/S.thermophl/Bifid [Vsl#3] 1 each PO BIDWM 08/28/22 polyethylene glycoL 3350 [Miralax] 1 each PO DAILY 08/28/22 Active Medications Heparin Sodium (Porcine) (Heparin 5,000 Unit/Ml Vial) 5,000 unit SUBQ BID [facility] Last Admin: 08/30/22 07:59 Dose: Not Given Hydromorphone HCl (Hydromorphone 0.5 Mg/0.5 Ml Syringe) 0.5 mg IVP Q2H PRN PRN Reason: PAIN Last Admin: 08/29/22 05:35 Dose: 0.5 mg Lactated Ringer's (Lr) 1,000 mls @ 125 mls/hr IV .Q8H [facility] Last Admin: 08/30/22 08:00 Dose: Not Given Cefazolin Sodium 1 gm/ Sodium (Chloride) 100 mls @ 200 mls/hr IV ONCE [facility] Stop: 08/30/22 12:00 Ketorolac Tromethamine (Ketorolac 15 Mg/Ml Vial) 15 mg IVP Q6HR [facility]ERO Stop: 08/30/22 12:01 Last Admin: 08/30/22 05:48 Dose: 15 mg Magnesium Hydroxide (Magnesium Hydroxide 2,400 Mg/30 Ml Udc) 2,400 mg PO ONCE PRN PRN Reason: BM Stop: 09/05/22 15:31 Last Admin: 08/29/22 20:00 Dose: 2,400 mg Ondansetron HCl (Ondansetron 4 Mg/2 Ml Vial) 4 mg IVP Q4HR PRN PRN Reason: Nausea / Vomiting Last Admin: 08/29/22 17:21 Dose: 4 mg Prochlorperazine Edisylate (Prochlorperazine 10 Mg/2 Ml Vial) 10 mg IVP Q6HR PRN PRN Reason: Nausea / Vomiting Last Admin: 08/29/22 22:12 Dose: 10 mg Sodium Chloride (Sodium Chloride Flush 0.9% 10 Ml Syringe) 10 ml IVP 0100,0900,1700 WERO Last Admin: 08/30/22 08:00 Dose: Not Given Sodium Chloride (Sodium Chloride Flush 0.9% 10 Ml Syringe) 10 ml IVP PRN PRN PRN Reason: NEEDED PER PROVIDER ORDERS Last Admin: 08/30/22 05:48 Dose: 10 ml Montelukast Sodium 10 mg PO HS 04/26/22 buPROPion HCL [Bupropion Xl] 150 mg PO DAILY 08/06/22 Albuterol Sulf [Ventolin Hfa Inhaler] 2 puffs INH Q4H PRN 08/28/22 Estradiol [Vagifem] 10 mcg VG .TWICE WEEKLY 08/28/22 Multivitamin W/Minerals [Theragran M] 1 each PO DAILY 08/28/22 Triamcinolone 0.1% Oint [Kenalog 0.1% Oint] 1 applic TOP BID PRN 08/28/22 Vsl#3:Lactob/S.thermophl/Bifid [Vsl#3] 1 each PO BIDWM 08/28/22 polyethylene glycoL 3350 [Miralax] 1 each PO DAILY 08/28/22 Allergies/Adverse Reactions: Allergies Allergy/AdvReac Type Severity Reaction Status Date / Time budesonide AdvReac Anxiety Verified 04/26/22 12:51 codeine AdvReac Emesis Verified 04/26/22 11:48 fluticasone AdvReac Anxiety Verified 04/26/22 12:51 mometasone furoate AdvReac Anxiety Verified 04/26/22 12:51 Anes History & Medical History - Anesthetic History Anesthesia Complications: reports: No previous complications - Medical History Cardiovascular: reports: Other Pulmonary: reports: Asthma Gastrointestinal: reports: Hepatitis, Other Urinary: reports: None Neuro: reports: None Musculoskeletal: reports: None Skin: reports: None Smoking Status: Never smoker History of Cancer?: Yes Other Past Medical History: Left breast cancer - Surgical History General: reports: Bowel surgery, Other Gynecologic: reports: Hysterectomy, Mastectomy Orthopedic: reports: Other Other Past Surgical History: Left mastectomy for breast cancer Exam General: Alert, Oriented x3, Cooperative Dental: Other (front bottom loose tooth) Mouth Opening: Greater than 4 Fingerbreadths Mallampati classification: II Thyromental Distance: greater than 6 cm Respiratory: Lungs clear Cardiovascular: Regular rate, Normal S1, Normal S2 Plan Anesthesia Type: General, Transverse Abdominis Plane (TAP) Block Consent for Procedure(s) Verified and Reviewed: Yes Code Status: Attempt Resuscitation ASA classification: 2-Mild systemic disease Is this case an emergency?: Yes
[2022-08-30] MEDS ORDERED: PROPOFOL 200 MG/20 ML VIAL IVP ONE (08:41)
[2022-08-30] MEDS ORDERED: ROCURONIUM 50 MG/5 ML VIAL ONE (08:41)
[2022-08-30] MEDS ORDERED: fentaNYL 100 MCG/2 ML VIAL ONE (08:44)
[2022-08-30] MEDS ORDERED: MIDAZOLAM 2 MG/2 ML VIAL ONE (08:44)
[2022-08-30] MEDS ORDERED: LIDOCAINE MPF 2%-EPI 1:200000 20 ML VIAL ONE (08:45)
[2022-08-30] MEDS ORDERED: BUPIVACAINE 0.25% PF 10 ML VIAL ONE (08:45)
[2022-08-30] MEDS ORDERED: BUPIVACAINE 0.5% PF 30 ML VIAL ONE (08:46)
[2022-08-30] MEDS ORDERED: ePHEDrine 50 MG/ML VIAL IVP PRN (08:49)
[2022-08-30] MEDS ORDERED: METOCLOPRAMIDE 10 MG/2 ML VIAL IVP PRN (08:49)
[2022-08-30] MEDS ORDERED: ATROPINE ABBOJECT 1 MG/10 ML SYRINGE IVP PRN (08:49)
[2022-08-30] MEDS ORDERED: fentaNYL 100 MCG/2 ML VIAL IVP PRN (08:49)
[2022-08-30] MEDS ORDERED: NALOXONE 0.4 MG/ML VIAL IVP PRN (08:49)
[2022-08-30] MEDS ORDERED: MORPHINE 2 MG/ML CARPUJECT IVP PRN (08:49)
[2022-08-30] MEDS ORDERED: HYDROmorphone 0.5 MG/0.5 ML SYRINGE IVP PRN (08:49)
[2022-08-30] MEDS ORDERED: ONDANSETRON 4 MG/2 ML VIAL IVP PRN ×2 (08:49→10:30)
[2022-08-30] MEDS ORDERED: LACTATED RINGERS 1,000 ML IV SCH (09:00)
[2022-08-30] MEDS ORDERED: ePHEDrine 50 MG/ML VIAL IVP ONE (09:15)
[2022-08-30] MEDS ORDERED: DEXAMETHASONE 4 MG/ML VIAL ONE (09:32)
[2022-08-30] MEDS ORDERED: ONDANSETRON 4 MG/2 ML VIAL ONE (09:32)
[2022-08-30] MEDS ORDERED: LIDOCAINE 2%-EPI 1:100000 20 ML MDV SUBQ ONE ×2 (09:37)
[2022-08-30] MEDS ORDERED: BUPIVACAINE 0.25% PF 30 ML VIAL SUBQ ONE ×2 (09:37)
[2022-08-30] MEDS ORDERED: HYDROmorphone 1 MG/ML CARPUJECT ONE (09:41)
[2022-08-30] MEDS ORDERED: SUGAMMADEX 200 MG/2 ML VIAL IVP ONE (09:49)
[2022-08-30] MEDS ORDERED: BUPIVACAINE 0.5% PF 10 ML VIAL ONE (09:50)
[2022-08-30] MEDS ORDERED: SODIUM CHLORIDE FLUSH 0.9% 10 ML SYRINGE IVP PRN (10:30)
--- NOTE | 2022-08-30 10:55 | OPERATIVE REPORT ---
Operative Report - General Admit Date: 08/29/22 Pre-Op Diagnosis: High grade Small Bowel Obstruction Procedure Performed: Exploratory Laparotomy with adhesiolysis - Procedure Note Primary Surgeon: Sigifredo Bowen MD Anesthesia Provider: Stiven Cerda Anesthesia Technique: General ET tube Pathology: No specimen Indications: Chronic recurrent small bowel obstruction not responsive to medical therapy Findings: Several dense adhesions causing near complete bowel obstruction. All small bowel viable. Normal colostomy. Minimal pelvic adhesions. - Other Other Information/Narrative: PROCEDURE DATE: 08/30/2022 PREOPERATIVE DIAGNOSIS: The patient is a 77 year old female who has clinical and x-ray findings consistent with a recurrent, high grade, partial small bowel obstruction. POSTOPERATIVE DIAGNOSIS: High grade partial small bowel obstruction due to a dense adhesion NAME OF PROCEDURE: Exploratory laparotomy, adhesiolysis (42988). SURGEON: Sigifredo Bowen MD, FACS COMMUTATOR UNDERCUTTER SURGEON: None ANESTHESIA: General endotracheal. ESTIMATED BLOOD LOSS: 50-100 mL. DESCRIPTION OF OPERATION: After consent for the procedure was obtained, the patient was brought to the operating room where in the supine position, a surgical time-out was performed, indicating the patient and the procedure to be performed. A yang bladder catheter, SCD's, and NGT were in place and general endotracheal anesthesia was then administered. The colostomy appliance was removed and the stoma covered with Vaseline gauze and a sterile 4 x 4 gauze. The abdomen was prepped with non-alcohol Betadine scrub and once dry, the abdomen was covered with an [place] sheet followed by standard surgical drapes. A surgical time-out was performed indicating the patient and the procedure to be performed. A midline incision was used to gain exposure of the abdominal cavity. I entered the abdomen above the umbilicus in an area away from the previous incision. The undersurface of the linea alba was free of adhesions and incised to the symphysis pubis. Exploration of the abdomen reveals light adhesions to the left lateral abdominal wall but no adhesions in the pelvis. The cecum was identified and the terminal ileum was decompressed. I followed the small bowel proximally until a 1 cm thick adhesion was encountered and this was the main cause of the partial bowel obstruction. The adhesion was transected and the bowel trapped by the adhesion inspected. There was minimal narrowing of the small bowel and the internal diameter was patulous. The entire small bowel was then explored to the Ligament of Treitz and several other dense adhesions were encountered and transected. The proximal jejunum was dilated because of these adhesions and was decompressed with antegrade and retrograde propulsion. At the end of the exploration, the entire small bowel appeared normal, all adhesions were lysed, and the small bowel contents were easily propelled into the distal ileum. There was no injury to the bowel during the adhesiolysis. The NGT was confirmed in the stomach and the yang was confirmed in the bladder. The abdominal cavity was irrigated with 1 liter of warm, sterile saline. The irrigant was aspirated. A search for sponges, packs, needles and instruments was performed. None were identified in the peritoneal cavity. The sponge, pack, needle, and instrument counts were relayed to me as correct. The linea alba was then closed with a running # 1 double stranded PDS suture. The subcutaneous tissue was infiltrated with 30 ml of a 50-50 mix of Lidocaine and Marcaine. The skin was approximated with a 4-0 Vicryl subcuticular sutures and steri- strips and the wound dressed with 4 x 4 gauze and tape. A fresh ostomy appliance was placed over the LLQ colosotomy. The anesthesia team then placed a MEHRAN block. The patient was awakened from general anesthesia, tolerated the procedure well, and was brought to the recovery room with stable vital signs.
[2022-08-30] MEDS ORDERED: LACTATED RINGERS 1,000 ML IV ONE ×2 (10:58→11:32)
--- NOTE | 2022-08-30 12:55 | ANESTHESIA POST OP EVALUATION ---
Anesthesia Post Eval - Post Anesthesia Eval Vitals: Last Vital Signs Temp 36.4 C L 08/30/22 12:45 Pulse 72 08/30/22 12:30 Resp 16 08/30/22 12:30 BP 120/60 08/30/22 12:30 Pulse Ox 96 08/30/22 12:30 O2 Flow Rate 1 08/30/22 12:30 CV Function Including HR & BP: Stable Pain Control: Satisfactory Nausea & Vomiting: Negative Mental Status: Baseline Respiratory Status: Airway Patent Hydration Status: Satisfactory Anesthesia Complications: None
[2022-08-30] MEDS: HYDROmorphone 2 MG/ML VIAL IVP PRN ×2 (16:00→22:31)
--- NOTE | 2022-08-30 19:57 | PROVIDER PROGRESS NOTE ---
Progress Note Leyda feels much better. Her abdominal fullness and cramping are gone and she now has mild incisional discomfort. Her NGT is in place and pulling gastric contents. Her abdominal dressing is dry, her ostomy is healthy and the pouch is empty. Her pain is under good control. UOP is good. A: No immediate post-op issues s/p ExLap/Adhesiolysis P: No new orders Austin Bowen MD General Surgery Service
[2022-08-31] MEDS: LACTATED RINGERS 1,000 ML IV SCH ×3 (03:11→19:05)
[2022-08-31] MEDS: HYDROmorphone 2 MG/ML VIAL IVP PRN ×3 (03:23→23:52)
[2022-08-31 05:03] LABS: BASOPHILS % (AUTO) 0.2 %; EOSINOPHILS % (AUTO) 0.2 %; LYMPHOCYTES # (AUTO) 0.8 10^3/uL (1.5-3.5); LYMPHOCYTES % (AUTO) 15.2 %; MEAN CORPUSCULAR HEMOGLOBIN 30.3 pg (27.0-31.0); MEAN CORPUSCULAR HGB CONC 31.4 g/dL (32.0-36.0); MEAN CORPUSCULAR VOLUME 96.4 fL (81.0-99.0); MEAN PLATELET VOLUME 10.4 fL (7.9-10.8); MONOCYTES # (AUTO) 0.5 10^3/uL (0.0-1.0); MONOCYTES % (AUTO) 10.5 %; NEUTROPHILS # (AUTO) 3.7 10^3/uL (1.5-6.6); NEUTROPHILS % (AUTO) 73.7 %; PLT - PLATELET COUNT 136 10^3/uL (130-450); RED BLOOD COUNT 3.63 10^6/uL (4.20-5.40); RED CELL DISTRIBUTION WIDTH 12.7 % (12.0-15.0); WHITE BLOOD COUNT 5.1 x10^3/uL (4.8-10.8)
[2022-08-31 05:11] LABS: CALCIUM 8.3 mg/dL (8.5-10.3); CREATININE 0.6 mg/dL (0.4-1.0); POTASSIUM 4.2 mmol/L (3.5-5.0)
[2022-08-31] MEDS: SODIUM CHLORIDE FLUSH 0.9% 10 ML SYRINGE IVP SCH ×3 (09:04→23:53)
[2022-08-31] MEDS: HEPARIN 5,000 UNIT/ML VIAL SUBQ SCH ×2 (09:06→20:30)
--- NOTE | 2022-08-31 10:22 | PROVIDER PROGRESS NOTE ---
Subjective - General Admit Date: 08/29/22 Procedure Date: 08/30/22 Post Op Days: 1 Procedure Performed: open TI - Review of Systems Wound/Incisions: positive: Healing well, Dressing dry and intact Gastrointestinal: positive: Other (Occasional lower abdominal cramping; Minimal nausea; No vomiting; No stool but now with gas in the ostomy pouch) - Other Other Information/Narrative: Patient states her pain is controlled. She has had a very dry mouth and has been eating/drinking lots of ice chips and "sips" of water (about 5-6 cups overnig ht). High NG output, no nausea per patient. No ostomy activity per patient. Patient reports she was very tired yesterday afternoon. No acute events overnight. Objective - Patient Data Reviewed Vital Signs: Yes Vital Signs: Vital Signs x48h Temp Pulse Resp BP Pulse Ox 08/31/22 07:50 36.5 C 61 20 107/40 L 98 08/31/22 03:21 36.4 C L 71 16 95/43 L 92 Weight: Weight 08/29/22 08/30/22 08/31/22 23:59 23:59 23:59 Weight (kg) 51.5 kg Intake & Output: Intake and Output Totals x24h 08/29/22 08/30/22 08/31/22 23:59 23:59 23:59 Intake Total 4202.500 2737.500 965.833 Output Total 900 1102 150 Balance 3302.500 1635.500 815.833 NG output, 1100mL since surgery, though patient endorses high PO intake of ice/water. - Lab Results Lab Results: 08/31/22 04:48 08/31/22 04:48 Other Lab Results: Lab Results x24hrs 08/31/22 08/31/22 Range/Units 04:48 04:48 WBC 5.1 (4.8-10.8) x10^3/uL RBC 3.63 L (4.20-5.40) 10^6/uL Hgb 11.0 L (12.0-16.0) g/dL Hct 35.0 L (37.0-47.0) % MCV 96.4 (81.0-99.0) fL MCH 30.3 (27.0-31.0) pg MCHC 31.4 L (32.0-36.0) g/dL RDW 12.7 (12.0-15.0) % Plt Count 136 (130-450) 10^3/uL MPV 10.4 (7.9-10.8) fL Neut # (Auto) 3.7 (1.5-6.6) 10^3/uL Lymph # (Auto) 0.8 L (1.5-3.5) 10^3/uL [place] # (Auto) 0.5 (0.0-1.0) 10^3/uL Eos # (Auto) 0.0 (0.0-0.7) 10^3/uL Baso # (Auto) 0.0 (0.0-0.1) 10^3/uL Absolute Nucleated RBC 0.00 x10^3/uL Nucleated RBC % 0.0 /100WBC Sodium 140 (135-145) mmol/L Potassium 4.2 (3.5-5.0) mmol/L Chloride 99 L (101-111) mmol/L Carbon Dioxide 31 (21-32) mmol/L Anion Gap 10.0 (6-13) BUN 20 (6-20) mg/dL Creatinine 0.6 (0.4-1.0) mg/dL Estimated GFR (MDRD) 97 (>89) Glucose 99 (70-100) mg/dL Calcium 8.3 L (8.5-10.3) mg/dL - Current Medications Current Medications: Current Medications Generic Name Dose Route Start Last Admin Trade Name Freq PRN Reason Stop Dose Admin Heparin Sodium (Porcine) 5,000 unit 08/28/22 21:00 08/31/22 09:06 Heparin 5,000 Unit/Ml Vial SUBQ 5,000 unit BID WERO Administration Hydromorphone HCl 2 mg 08/30/22 13:51 08/31/22 03:23 Hydromorphone 2 Mg/Ml Vial IVP 2 mg Q2H PRN Administration PAIN Lactated Ringer's 1,000 mls @ 125 mls/hr 08/29/22 07:57 08/31/22 03:11 Lr IV 125 mls/hr .Q8H WERO Administration Magnesium Hydroxide 2,400 mg 08/29/22 15:32 08/29/22 20:00 Magnesium Hydroxide 2,400 Mg/30 Ml Udc PO 09/05/22 15:31 2,400 mg ONCE PRN Administration BM Ondansetron HCl 4 mg 08/28/22 11:28 08/29/22 17:21 Ondansetron 4 Mg/2 Ml Vial IVP 4 mg Q4HR PRN Administration Nausea / Vomiting Prochlorperazine Edisylate 10 mg 08/28/22 22:35 08/29/22 22:12 Prochlorperazine 10 Mg/2 Ml Vial IVP 10 mg Q6HR PRN Administration Nausea / Vomiting Sodium Chloride 10 ml 08/28/22 11:21 08/30/22 22:32 Sodium Chloride Flush 0.9% 10 Ml Syringe IVP 10 ml PRN PRN Administration NEEDED PER PROVIDER ORDERS Sodium Chloride 10 ml 08/30/22 17:00 08/31/22 09:04 Sodium Chloride Flush 0.9% 10 Ml Syringe IVP Not Given 0100,0900,1700 WERO - Physical Exam Wound/Incisions: positive: Healing well, Dressing dry and intact General Appearance: positive: No acute distress Eyes Bilateral: positive: Normal inspection ENT: positive: Other (NG in place with bilious output in canister.) Cardiovascular: positive: Regular rate & rhythm, No murmur Abdomen: positive: Tenderness (appropriate, incisional), Other (ostomy pink but no output in bag.). negative: Guarding, Rebound Skin: positive: Color nml Extremities: positive: Non-tender, Full ROM Neurologic/Psychiatric: positive: Oriented x3 Impression/Plan - Problem List Problem List: A: 77 y/o F admitted with high grade small bowel obstruction; the patient failed non-operative management and is now POD#1 from exploratory laparotomy with lysis of adhesions. P: Pain controlled with IV meds. Increase activity. Remove yang. Continue mIVF and NGT today. Plan for clamping trial of NG tomorrow. Discussed with patient and RN the importance of accurate I/O's and likelihood that NG output will remain high if taking lots of ice chips/sips. Patient has been in contact with Dr. Bates who is planning ostomy takedown early next year. - await increased bowel function to adat - home when tolerating diet, ambulating well - DVT ppx ordered
[2022-08-31] MEDS: SODIUM CHLORIDE FLUSH 0.9% 10 ML SYRINGE IVP PRN (13:48)
[2022-09-01] MEDS: LACTATED RINGERS 1,000 ML IV SCH (02:37)
[2022-09-01 06:41] LABS: HCT - HEMATOCRIT 30.6 % (37.0-47.0); HGB - HEMOGLOBIN 9.9 g/dL (12.0-16.0); MEAN CORPUSCULAR HEMOGLOBIN 31.1 pg (27.0-31.0); MEAN CORPUSCULAR HGB CONC 32.4 g/dL (32.0-36.0); MEAN CORPUSCULAR VOLUME 96.2 fL (81.0-99.0); MEAN PLATELET VOLUME 10.2 fL (7.9-10.8); RED BLOOD COUNT 3.18 10^6/uL (4.20-5.40); RED CELL DISTRIBUTION WIDTH 12.9 % (12.0-15.0); WHITE BLOOD COUNT 3.4 x10^3/uL (4.8-10.8)
[2022-09-01 06:55] LABS: CALCIUM 8.4 mg/dL (8.5-10.3); CREATININE 0.6 mg/dL (0.4-1.0); MAGNESIUM 1.9 mg/dL (1.7-2.8); PHOSPHORUS 3.4 mg/dL (2.5-4.6); POTASSIUM 3.7 mmol/L (3.5-5.0)
[2022-09-01] MEDS ORDERED: LACTATED RINGERS 1,000 ML IV SCH (07:15)
--- NOTE | 2022-09-01 08:47 | PROVIDER PROGRESS NOTE ---
Subjective - General Admit Date: 08/29/22 Procedure Date: 08/30/22 Post Op Days: 2 Procedure Performed: open TI - Review of Systems Wound/Incisions: positive: Healing well, Dressing dry and intact Gastrointestinal: positive: Other (Occasional lower abdominal cramping; Minimal nausea; No vomiting; No stool but now with gas in the ostomy pouch) - Other Other Information/Narrative: Pain controlled. Tolerating ice chips/sips. NG to LIWS. +ambulation. Voiding well since yang out. No significant ostomy output per patient. No acute events overnight. Objective - Patient Data Reviewed Vital Signs: Yes Vital Signs: Vital Signs x48h Resp Pulse Ox 09/01/22 02:30 16 96 Weight: Weight 08/30/22 08/31/22 09/01/22 23:59 23:59 23:59 Weight (kg) 51.5 kg Intake & Output: Intake and Output Totals x24h 08/30/22 08/31/22 09/01/22 23:59 23:59 23:59 Intake Total 2737.500 3752.083 1656.250 Output Total 1102 1825 400 Balance 5811.442 1102.083 1256.250 - Lab Results Lab Results: 09/01/22 06:36 09/01/22 06:36 Other Lab Results: Lab Results x24hrs 09/01/22 09/01/22 Range/Units 06:36 06:36 WBC 3.4 L (4.8-10.8) x10^3/uL RBC 3.18 L (4.20-5.40) 10^6/uL Hgb 9.9 L (12.0-16.0) g/dL Hct 30.6 L (37.0-47.0) % MCV 96.2 (81.0-99.0) fL MCH 31.1 H (27.0-31.0) pg MCHC 32.4 (32.0-36.0) g/dL RDW 12.9 (12.0-15.0) % Plt Count 105 L (130-450) 10^3/uL MPV 10.2 (7.9-10.8) fL Sodium 145 (135-145) mmol/L Potassium 3.7 (3.5-5.0) mmol/L Chloride 104 (101-111) mmol/L Carbon Dioxide 29 (21-32) mmol/L Anion Gap 12.0 (6-13) BUN 23 H (6-20) mg/dL Creatinine 0.6 (0.4-1.0) mg/dL Estimated GFR (MDRD) 97 (>89) Glucose 66 L (70-100) mg/dL Calcium 8.4 L (8.5-10.3) mg/dL Phosphorus 3.4 (2.5-4.6) mg/dL Magnesium 1.9 (1.7-2.8) mg/dL - Current Medications Current Medications: Current Medications Generic Name Dose Route Start Last Admin Trade Name Freq PRN Reason Stop Dose Admin Heparin Sodium (Porcine) 5,000 unit 08/28/22 21:00 08/31/22 20:30 Heparin 5,000 Unit/Ml Vial SUBQ 5,000 unit BID WERO Administration Hydromorphone HCl 2 mg 08/30/22 13:51 08/31/22 23:52 Hydromorphone 2 Mg/Ml Vial IVP 2 mg Q2H PRN Administration PAIN Magnesium Hydroxide 2,400 mg 08/29/22 15:32 08/29/22 20:00 Magnesium Hydroxide 2,400 Mg/30 Ml Udc PO 09/05/22 15:31 2,400 mg ONCE PRN Administration BM Ondansetron HCl 4 mg 08/28/22 11:28 08/29/22 17:21 Ondansetron 4 Mg/2 Ml Vial IVP 4 mg Q4HR PRN Administration Nausea / Vomiting Prochlorperazine Edisylate 10 mg 08/28/22 22:35 08/29/22 22:12 Prochlorperazine 10 Mg/2 Ml Vial IVP 10 mg Q6HR PRN Administration Nausea / Vomiting Sodium Chloride 10 ml 08/28/22 11:21 08/31/22 13:48 Sodium Chloride Flush 0.9% 10 Ml Syringe IVP 10 ml PRN PRN Administration NEEDED PER PROVIDER ORDERS Sodium Chloride 10 ml 08/30/22 17:00 08/31/22 23:53 Sodium Chloride Flush 0.9% 10 Ml Syringe IVP 10 ml 0100,0900,1700 WERO Administration - Physical Exam Wound/Incisions: positive: Healing well, Dressing dry and intact General Appearance: positive: No acute distress, Alert Eyes Bilateral: positive: Normal inspection, EOMI, Other (NG in place with bilious fluid in canister) Respiratory: positive: No respiratory distress Cardiovascular: positive: Regular rate & rhythm Abdomen: positive: Tenderness (appropriate, incisional), Other (ostomy pink, no output in bag). negative: Guarding, Rebound Skin: positive: No rash Extremities: positive: Full ROM Neurologic/Psychiatric: positive: Oriented x3 Impression/Plan - Problem List Problem List: A: 77 y/o F admitted with high grade small bowel obstruction; the patient failed non-operative management and is now POD#2 from exploratory laparotomy with lysis of adhesions. P: Pain controlled with IV meds. Continue to increase activity. Yang out, voiding well. Continue mIVF (decrease rate to 75mL/hr). Plan for clamping trial of NG today; patient encouraged to take sips/chips sparingly. If residual low, d/c ng today. Patient has been in contact with Dr. Bates who is planning ostomy takedown early next year. - await increased bowel function to adat beyond clears - home when tolerating diet, ambulating well - DVT ppx ordered
[2022-09-01] MEDS ORDERED: DEXTROSE 5%-0.45% NACL 1,000 ML IV STA (08:51)
[2022-09-01] MEDS: HEPARIN 5,000 UNIT/ML VIAL SUBQ SCH ×2 (09:03→20:33)
[2022-09-01] MEDS: SODIUM CHLORIDE FLUSH 0.9% 10 ML SYRINGE IVP SCH ×3 (09:04→23:47)
[2022-09-01] MEDS ORDERED: HYDROmorphone 2 MG/ML VIAL IVP PRN (17:41)
[2022-09-01] MEDS: ACETAMINOPHEN 500 MG TABLET PO PRN (17:46)
[2022-09-02 05:19] LABS: HCT - HEMATOCRIT 29.1 % (37.0-47.0); HGB - HEMOGLOBIN 9.5 g/dL (12.0-16.0); MEAN CORPUSCULAR HEMOGLOBIN 30.9 pg (27.0-31.0); MEAN CORPUSCULAR HGB CONC 32.6 g/dL (32.0-36.0); MEAN CORPUSCULAR VOLUME 94.8 fL (81.0-99.0); MEAN PLATELET VOLUME 10.7 fL (7.9-10.8); RED BLOOD COUNT 3.07 10^6/uL (4.20-5.40); RED CELL DISTRIBUTION WIDTH 12.7 % (12.0-15.0); WHITE BLOOD COUNT 3.6 x10^3/uL (4.8-10.8)
[2022-09-02] MEDS: ACETAMINOPHEN 500 MG TABLET PO PRN ×4 (07:59→23:29)
[2022-09-02] MEDS: SODIUM CHLORIDE FLUSH 0.9% 10 ML SYRINGE IVP SCH ×3 (08:00→23:36)
[2022-09-02] MEDS: HEPARIN 5,000 UNIT/ML VIAL SUBQ SCH ×2 (09:09→21:19)
--- NOTE | 2022-09-02 11:15 | PROVIDER PROGRESS NOTE ---
Subjective - General Admit Date: 08/29/22 Procedure Date: 08/30/22 Post Op Days: 3 Procedure Performed: open TI - Review of Systems Gastrointestinal: positive: Other (Occasional lower abdominal cramping; Minimal nausea; No vomiting; No stool but now with gas in the ostomy pouch) - Other Other Information/Narrative: Patient is tolerating clears well. Some gas in ostomy bag this AM. She was able to get some rest last night. She is concerned about going home as her is having a heart valve replaced tomorrow and she will not have much help until Thursday. Objective - Patient Data Vital Signs: Vital Signs x48h Temp Pulse Resp BP Pulse Ox 09/02/22 07:59 37.7 C 09/02/22 07:45 73 16 113/63 99 Intake & Output: Intake and Output Totals x24h 08/31/22 09/01/22 09/02/22 23:59 23:59 23:59 Intake Total 3752.083 3124.247 720 Output Total 1825 1130 Balance 0781.423 8214.247 720 - Lab Results Lab Results: 09/02/22 05:00 09/01/22 06:36 Other Lab Results: Lab Results x24hrs 09/02/22 09/02/22 Range/Units 05:00 05:00 WBC 3.6 L (4.8-10.8) x10^3/uL RBC 3.07 L (4.20-5.40) 10^6/uL Hgb 9.5 L (12.0-16.0) g/dL Hct 29.1 L (37.0-47.0) % MCV 94.8 (81.0-99.0) fL MCH 30.9 (27.0-31.0) pg MCHC 32.6 (32.0-36.0) g/dL RDW 12.7 (12.0-15.0) % Plt Count 111 L (130-450) 10^3/uL MPV 10.7 (7.9-10.8) fL Magnesium 1.8 (1.7-2.8) mg/dL - Current Medications Current Medications: Current Medications Generic Name Dose Route Start Last Admin Trade Name Freq PRN Reason Stop Dose Admin Acetaminophen 500 mg 09/01/22 17:40 09/02/22 07:59 Acetaminophen 500 Mg Tablet PO 500 mg Q4HR PRN Administration PAIN 5-7 Heparin Sodium (Porcine) 5,000 unit 08/28/22 21:00 09/02/22 09:09 Heparin 5,000 Unit/Ml Vial SUBQ 5,000 unit BID WERO Administration Hydromorphone HCl 1 mg 09/01/22 17:41 09/01/22 23:47 Hydromorphone 2 Mg/Ml Vial IVP 1 mg Q2H PRN Administration PAIN >8 Magnesium Hydroxide 2,400 mg 08/29/22 15:32 08/29/22 20:00 Magnesium Hydroxide 2,400 Mg/30 Ml Udc PO 09/05/22 15:31 2,400 mg ONCE PRN Administration BM Ondansetron HCl 4 mg 08/28/22 11:28 08/29/22 17:21 Ondansetron 4 Mg/2 Ml Vial IVP 4 mg Q4HR PRN Administration Nausea / Vomiting Prochlorperazine Edisylate 10 mg 08/28/22 22:35 08/29/22 22:12 Prochlorperazine 10 Mg/2 Ml Vial IVP 10 mg Q6HR PRN Administration Nausea / Vomiting Sodium Chloride 10 ml 08/28/22 11:21 08/31/22 13:48 Sodium Chloride Flush 0.9% 10 Ml Syringe IVP 10 ml PRN PRN Administration NEEDED PER PROVIDER ORDERS Sodium Chloride 10 ml 08/30/22 17:00 09/02/22 08:00 Sodium Chloride Flush 0.9% 10 Ml Syringe IVP 10 ml 0100,0900,1700 [facility] Administration - Physical Exam Wound/Incisions: positive: Healing well, Dressing dry and intact General Appearance: positive: No acute distress, Alert Eyes Bilateral: positive: Normal inspection Respiratory: positive: No respiratory distress Cardiovascular: positive: Regular rate & rhythm, No murmur Abdomen: positive: Tenderness (appropriate, incisional). negative: Guarding, Rebound Extremities: positive: Non-tender, Full ROM Neurologic/Psychiatric: positive: Oriented x3 Impression/Plan - Problem List Problem List: A: 77 y/o F admitted with high grade small bowel obstruction; the patient failed non-operative management and is now POD#3 from exploratory laparotomy with lysis of adhesions. P: Pain controlled with PO/IV meds. Continue to increase activity. [place] out, voiding well. SLIV. - On soft diet this AM, await increased bowel function to adat further - home when tolerating diet, ambulating well - DVT ppx ordered
[2022-09-02] MEDS: polyethylene glycoL 3350 17 GM PACKET PO SCH (15:45)
[2022-09-03] MEDS: ACETAMINOPHEN 500 MG TABLET PO PRN (05:08)
--- NOTE | 2022-09-03 07:51 | PROVIDER PROGRESS NOTE ---
Subjective - General Admit Date: 08/29/22 Procedure Date: 08/30/22 Post Op Days: 4 Procedure Performed: open TI - Review of Systems Wound/Incisions: positive: Healing well, Dressing dry and intact Gastrointestinal: positive: Other (Occasional lower abdominal cramping; Minimal nausea; No vomiting; No stool but now with gas in the ostomy pouch) - Other Other Information/Narrative: Pain controlled. Tolerating soft diet. No nausea. Trace amount of stool in ostomy bag this morning that patient states is not new. +void. +ambulation. Objective - Patient Data Reviewed Vital Signs: Yes Intake & Output: Intake and Output Totals x24h 09/01/22 09/02/22 09/03/22 23:59 23:59 23:59 Intake Total 3124.247 1598 Output Total 1130 1175 850 Balance 1994.247 423 -850 - Lab Results Lab Results: 09/02/22 05:00 09/01/22 06:36 - Current Medications Current Medications: Current Medications Generic Name Dose Route Start Last Admin Trade Name Freq PRN Reason Stop Dose Admin Acetaminophen 500 mg 09/01/22 17:40 09/03/22 05:08 Acetaminophen 500 Mg Tablet PO 500 mg Q4HR PRN Administration PAIN 5-7 Heparin Sodium (Porcine) 5,000 unit 08/28/22 21:00 09/02/22 21:19 Heparin 5,000 Unit/Ml Vial SUBQ 5,000 unit BID WERO Administration Hydromorphone HCl 1 mg 09/01/22 17:41 09/01/22 23:47 Hydromorphone 2 Mg/Ml Vial IVP 1 mg Q2H PRN Administration PAIN >8 Magnesium Hydroxide 2,400 mg 08/29/22 15:32 08/29/22 20:00 Magnesium Hydroxide 2,400 Mg/30 Ml Udc PO 09/05/22 15:31 2,400 mg ONCE PRN Administration BM Ondansetron HCl 4 mg 08/28/22 11:28 08/29/22 17:21 Ondansetron 4 Mg/2 Ml Vial IVP 4 mg Q4HR PRN Administration Nausea / Vomiting Polyethylene Glycol 17 gm 09/02/22 14:00 09/02/22 15:45 Polyethylene Glycol 3350 17 Gm Packet PO 17 gm BID WERO Administration Prochlorperazine Edisylate 10 mg 08/28/22 22:35 08/29/22 22:12 Prochlorperazine 10 Mg/2 Ml Vial IVP 10 mg Q6HR PRN Administration Nausea / Vomiting Sodium Chloride 10 ml 08/28/22 11:21 08/31/22 13:48 Sodium Chloride Flush 0.9% 10 Ml Syringe IVP 10 ml PRN PRN Administration NEEDED PER PROVIDER ORDERS Sodium Chloride 10 ml 08/30/22 17:00 09/02/22 23:36 Sodium Chloride Flush 0.9% 10 Ml Syringe IVP 10 ml 0100,0900,1700 WERO Administration - Physical Exam Wound/Incisions: positive: Healing well, Dressing dry and intact General Appearance: positive: No acute distress, Alert Eyes Bilateral: positive: EOMI Respiratory: positive: No respiratory distress Cardiovascular: positive: Regular rate & rhythm Abdomen: positive: Tenderness (appropriate, incisional). negative: Guarding, Rebound Extremities: positive: Full ROM Neurologic/Psychiatric: positive: Oriented x3 Impression/Plan - Problem List Problem List: A: 77 y/o F admitted with high grade small bowel obstruction; the patient failed non-operative management and is now POD#4 from exploratory laparotomy with lysis of adhesions. P: Pain controlled with PO/IV meds. Continue to encourage activity. [place] out, voiding well. SLIV. - On soft diet this AM, await increased bowel function to adat further - home when tolerating diet and ostomy working, ambulating well - DVT ppx ordered
[2022-09-03] MEDS ORDERED: HYDROmorphone 1 MG/ML CARPUJECT IVP PRN (08:14)
[2022-09-03] MEDS: HEPARIN 5,000 UNIT/ML VIAL SUBQ SCH ×2 (09:03→21:07)
[2022-09-03] MEDS: polyethylene glycoL 3350 17 GM PACKET PO SCH ×2 (09:04→21:06)
[2022-09-03] MEDS: SODIUM CHLORIDE FLUSH 0.9% 10 ML SYRINGE IVP SCH ×3 (09:04→23:57)
[2022-09-03] MEDS: traMADol 50 MG TABLET PO PRN (22:47)
[2022-09-04] MEDS: traMADol 50 MG TABLET PO PRN ×3 (05:17→23:47)
--- NOTE | 2022-09-04 07:58 | PROVIDER PROGRESS NOTE ---
Subjective - General Admit Date: 08/29/22 Procedure Date: 08/30/22 Post Op Days: 5 Procedure Performed: open TI - Review of Systems Wound/Incisions: positive: Healing well, Dressing dry and intact Gastrointestinal: positive: Other (Occasional lower abdominal cramping; Minimal nausea; No vomiting; No stool but now with gas in the ostomy pouch) - Other Other Information/Narrative: Pain controlled. Patient took single dose of IV pain meds yesterday PM, otherwise doing well with tylenol and tramadol. +ambulation. +void. Patient denies significant ostomy output. Patient's is likely going to have TAVR today (he was scheduled yesterday and there was a delay). Objective - Patient Data Reviewed Vital Signs: Yes Vital Signs: Vital Signs x48h Temp Pulse Resp BP Pulse Ox 09/04/22 07:53 36.5 C 68 16 109/66 99 09/04/22 00:08 36.5 C 78 16 105/56 L 94 Intake & Output: Intake and Output Totals x24h 09/02/22 09/03/22 09/04/22 23:59 23:59 23:59 Intake Total 1598 1550 Output Total 1175 4525 900 Balance 423 -2975 -900 - Lab Results Lab Results: 09/02/22 05:00 09/01/22 06:36 - Current Medications Current Medications: Current Medications Generic Name Dose Route Start Last Admin Trade Name Freq PRN Reason Stop Dose Admin Acetaminophen 500 mg 09/01/22 17:40 09/03/22 05:08 Acetaminophen 500 Mg Tablet PO 500 mg Q4HR PRN Administration PAIN 5-7 Heparin Sodium (Porcine) 5,000 unit 08/28/22 21:00 09/03/22 21:07 Heparin 5,000 Unit/Ml Vial SUBQ 5,000 unit BID WERO Administration Hydromorphone HCl 1 mg 09/03/22 08:14 09/03/22 18:32 Hydromorphone 1 Mg/Ml Carpuject IVP 1 mg Q2H PRN Administration PAIN >8 Magnesium Hydroxide 2,400 mg 08/29/22 15:32 08/29/22 20:00 Magnesium Hydroxide 2,400 Mg/30 Ml Udc PO 09/05/22 15:31 2,400 mg ONCE PRN Administration BM Ondansetron HCl 4 mg 08/28/22 11:28 08/29/22 17:21 Ondansetron 4 Mg/2 Ml Vial IVP 4 mg Q4HR PRN Administration Nausea / Vomiting Polyethylene Glycol 17 gm 09/02/22 14:00 09/03/22 21:06 Polyethylene Glycol 3350 17 Gm Packet PO 17 gm BID WERO Administration Prochlorperazine Edisylate 10 mg 08/28/22 22:35 08/29/22 22:12 Prochlorperazine 10 Mg/2 Ml Vial IVP 10 mg Q6HR PRN Administration Nausea / Vomiting Sodium Chloride 10 ml 08/28/22 11:21 08/31/22 13:48 Sodium Chloride Flush 0.9% 10 Ml Syringe IVP 10 ml PRN PRN Administration NEEDED PER PROVIDER ORDERS Sodium Chloride 10 ml 08/30/22 17:00 09/03/22 23:57 Sodium Chloride Flush 0.9% 10 Ml Syringe IVP 10 ml 0100,0900,1700 WERO Administration Tramadol HCl 50 mg 09/03/22 07:52 09/04/22 05:17 Tramadol 50 Mg Tablet PO 50 mg Q6H PRN Administration PAIN - Physical Exam Wound/Incisions: positive: Healing well, Drainage (small amount of serous drainage from dressing.) General Appearance: positive: No acute distress, Alert Eyes Bilateral: positive: Normal inspection, EOMI ENT: positive: No signs of dehydration Respiratory: positive: Chest non-tender, No respiratory distress Cardiovascular: positive: Regular rate & rhythm Abdomen: positive: Tenderness (mild, inicisional). negative: Guarding, Rebound Extremities: positive: Pedal edema (B 1+, also some truncal edema in buttocks) Neurologic/Psychiatric: positive: Oriented x3 Impression/Plan - Problem List Problem List: A: 77 y/o F admitted with high grade small bowel obstruction; the patient failed non-operative management and is now POD#5 from exploratory laparotomy with lysis of adhesions. P: Pain controlled with PO/IV meds. Continue to encourage activity. Await increased bowel function. - On soft diet, tolerating small amounts of food. +bowel regimen. Still with minimal ostomy output this AM. - giving single dose lasix and kcl this AM for edema - home when bowel function improved, ambulating well - DVT ppx ordered
[2022-09-04] MEDS ORDERED: FUROSEMIDE 40 MG TABLET PO ONE (08:00)
[2022-09-04] MEDS ORDERED: POTASSIUM CHLORIDE 20 MEQ TABLET PO ONE (08:00)
[2022-09-04] MEDS: polyethylene glycoL 3350 17 GM PACKET PO SCH ×3 (09:15→22:00)
[2022-09-04] MEDS: HEPARIN 5,000 UNIT/ML VIAL SUBQ SCH ×2 (09:15→21:00)
[2022-09-04] MEDS: SODIUM CHLORIDE FLUSH 0.9% 10 ML SYRINGE IVP SCH ×2 (09:15→18:25)
[2022-09-04] MEDS ORDERED: MAGNESIUM HYDROXIDE 2,400 MG/30 ML UDC PO PRN (13:45)
[2022-09-05] MEDS: SODIUM CHLORIDE FLUSH 0.9% 10 ML SYRINGE IVP SCH ×2 (00:01→11:44)
[2022-09-05] MEDS: ACETAMINOPHEN 500 MG TABLET PO PRN ×2 (03:21→11:14)
[2022-09-05] MEDS: polyethylene glycoL 3350 17 GM PACKET PO SCH (06:48)
--- NOTE | 2022-09-05 07:31 | Discharge Plan ---
Discharge Plan Problem Reviewed?: Yes Disposition: Home, Self Care Condition: Good Prescriptions: traMADol [Ultram] 50 mg PO Q6H PRN #15 tab PRN Reason: Pain Diet: Regular Activity Restrictions: Activity as Tolerated (20 lb lifting limit) Shower Restrictions: No Driving Restrictions: No Weight Bearing: Full Weight Additional Instructions or Follow Up instructions: Follow up with Dr. Willis in 2 weeks No Smoking: If you smoke, Please STOP! Call for help. Follow-up with: Heber Willis MD [Provider Admit Priv/Credential] -
--- NOTE | 2022-09-05 07:35 | DISCHARGE SUMMARY ---
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 Her post op course has been uncomplicated except for a partial small bowel obstruction treated non- operatively about 3 weeks prior to admission. Since she has been eating normally and having normal bowel motions via her colostomy. 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 She took 3 doses of Miralax and evacuated a large amount of stool from her colostomy but the cramping, while much less, was still present. She presented to the ED and had findings consistent with recurrent obstruction and was admitted to the hospital. - CONSULTS | PROCEDURES Procedures: ex lap with TI on 08/[address] Bowen - HOSPITAL COURSE Hospital Course: The patient was admitted and repeat SBFT demonstrated persistent obstruction. She failed conservative management and was taken to the OR where several adhesive bands were identified and released. Postoperatively, the patient was transferred to the floor where she did well. She had delayed return of bowel function as expected due to the extensive handling of bowel required for the patient's procedure. She increased her activity and was able to tolerate a diet. She began having ostomy output and is doing well on the date of discharge. - ALLERGIES Allergies/Adverse Reactions: Allergies Allergy/AdvReac Type Severity Reaction Status Date / Time budesonide AdvReac Anxiety Verified 04/26/22 12:51 codeine AdvReac Emesis Verified 04/26/22 11:48 fluticasone AdvReac Anxiety Verified 04/26/22 12:51 mometasone furoate AdvReac Anxiety Verified 04/26/22 12:51 - MEDICATIONS Home Medications: Ambulatory Orders Medication Instructions Recorded Confirmed Montelukast Sodium 10 mg PO HS 04/26/22 08/28/22 buPROPion HCL [Bupropion Xl] 150 mg PO DAILY 08/06/22 08/28/22 Albuterol Sulf [Ventolin Hfa 2 puffs INH Q4H PRN 08/28/22 08/28/22 Inhaler] Estradiol [Vagifem] 10 mcg VG .TWICE WEEKLY 08/28/22 08/28/22 Multivitamin W/Minerals [Theragran 1 each PO DAILY 08/28/22 08/28/22 M] Triamcinolone 0.1% Oint [Kenalog 1 applic TOP BID PRN 08/28/22 08/28/22 0.1% Oint] Vsl#3:Lactob/S.thermophl/Bifid 1 each PO BIDWM 08/28/22 08/28/22 [Vsl#3] polyethylene glycoL 3350 [Miralax] 1 each PO DAILY 08/28/22 08/28/22 Acetaminophen [Tylenol] 500 mg PO Q4HR PRN tab 09/05/22 polyethylene glycoL 3350 [Miralax] 17 gm PO TID packet 09/05/22 traMADol [Ultram] 50 mg PO Q6H PRN #15 tab 09/05/22 - PHYSICAL EXAM AT DISCHARGE General Appearance: positive: No acute distress, Alert Eyes Bilateral: positive: Normal inspection, PERRL, EOMI ENT: positive: No signs of dehydration Neck: positive: Nml inspection, Trachea midline Respiratory: positive: Chest non-tender, No respiratory distress Cardiovascular: positive: Regular rate & rhythm Peripheral Pulses: positive: 2+ Abdomen: positive: Tenderness (minimal, incisional), Other (ostomy productive of gas and stool, incision c/d/i with small amount of serous drainage from middle of incision.). negative: Guarding, Rebound Back: positive: Nml inspection Skin: positive: Color nml, No rash Extremities: positive: Non-tender, Full ROM, Other (1+ B LE edema) Neurologic/Psychiatric: positive: Oriented x3 - LABS Result Diagrams: 09/02/22 05:00 09/01/22 06:36 - FOLLOW UP Follow Up: Dr. Willis in 2 weeks - TIME SPENT Time Spent in Discharge (Minutes): 43"
--- NOTE | 2022-09-05 07:44 | Discharge Plan ---
Discharge Plan Problem Reviewed?: Yes Disposition: Home, Self Care Condition: Good Prescriptions: traMADol [Ultram] 50 mg PO Q6H PRN #15 tab PRN Reason: Pain Activity Restrictions: Activity as Tolerated (20 lb lifting limit) Shower Restrictions: No Driving Restrictions: No Weight Bearing: Full Weight Additional Instructions or Follow Up instructions: Follow up with Dr. Willis in 2 weeks No Smoking: If you smoke, Please STOP! Call for help. Follow-up with: Heber Willis MD [Provider Admit Priv/Credential] -
[2022-09-05 08:51] VITALS: BP 116/55
[2022-09-05] MEDS: HEPARIN 5,000 UNIT/ML VIAL SUBQ SCH (11:43)
== END 2022-09-05 11:44 | disposition home or self-care (01) | DRG 337 ==
LOC: ED 09:30 → MS2 11:21 → OBSVTOIN 08-29 07:49
PROVIDERS: ADMIT Surgery; ATTEND Surgery
PROC: 0DN80ZZ Release Small Intestine, Open Approach (ICD-10-PCS; principal; 2022-08-30 08:30)
DX: K56.609 Unspecified intestinal obstruction, unspecified as to partial versus complete obstruction (principal); Z20.822 Contact with and (suspected) exposure to COVID-19; K56.51 Intestinal adhesions [bands], with partial obstruction; J45.909 Unspecified asthma, uncomplicated; F32.A Depression, unspecified; R60.9 Edema, unspecified; R68.2 Dry mouth, unspecified; Z85.3 Personal history of malignant neoplasm of breast; Z80.3 Family history of malignant neoplasm of breast; Z80.41 Family history of malignant neoplasm of ovary; Z80.8 Family history of malignant neoplasm of other organs or systems; Z88.5 Allergy status to narcotic agent; Z88.8 Allergy status to other drugs, medicaments and biological substances; Z90.12 Acquired absence of left breast and nipple; Z90.49 Acquired absence of other specified parts of digestive tract; Z93.3 Colostomy status
CPT/HCPCS: 36415; 43753; 74176; 74250; 80048; 80053; 81003; 83690; 83735; 84100; 85025; 85027; 87633; 96374; 96375; 96376; 99285; A9270; J1170; J7120; Q9963; 81001; 87086

== ENCOUNTER 2022-09-20 23:18 | Inpatient (IN) | payer MEDICARE, OTHER ==
--- NOTE | 2022-09-20 23:39 | ED Physician Documentation ---
PD HPI ABD PAIN - Stated complaint Stated Complaint: PURPLE STOMA,CRAMPING - Chief complaint Chief Complaint: Abd Pain - History obtained from History obtained from: Patient - Additional information Additional information: 77yF presents with constipation today and discoloration to her colostomy. Also with diffuse cramping, gradual onset nonradiating abdominal pain a/w constipation. Brown liquid runny stool in ostomy bag. denies fever, nausea, urinarysx Review of Systems Ten Systems: 10 systems reviewed and negative Constitutional: denies: Fever, Chills GI: reports: Abdominal Pain, Constipation. 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 - Present Medications Home Medications: Ambulatory Orders Medication Instructions Recorded Confirmed Montelukast Sodium 10 mg PO HS 04/26/22 08/28/22 buPROPion HCL [Bupropion Xl] 150 mg PO DAILY 08/06/22 08/28/22 Albuterol Sulf [Ventolin Hfa 2 puffs INH Q4H PRN 08/28/22 08/28/22 Inhaler] Estradiol [Vagifem] 10 mcg VG .TWICE WEEKLY 08/28/22 08/28/22 Multivitamin W/Minerals [Theragran 1 each PO DAILY 08/28/22 08/28/22 M] Triamcinolone 0.1% Oint [Kenalog 1 applic TOP BID PRN 08/28/22 08/28/22 0.1% Oint] Vsl#3:Lactob/S.thermophl/Bifid 1 each PO BIDWM 08/28/22 08/28/22 [Vsl#3] polyethylene glycoL 3350 [Miralax] 1 each PO DAILY 08/28/22 08/28/22 Acetaminophen [Tylenol] 500 mg PO Q4HR PRN tab 09/05/22 polyethylene glycoL 3350 [Miralax] 17 gm PO TID packet 09/05/22 - Allergies Allergies/Adverse Reactions: Allergies Allergy/AdvReac Type Severity Reaction Status Date / Time budesonide AdvReac Anxiety Verified 09/20/22 23:42 codeine AdvReac Emesis Verified 09/20/22 23:42 fluticasone AdvReac Anxiety Verified 09/20/22 23:42 mometasone furoate AdvReac Anxiety Verified 09/20/22 23:42 - Social History Does the pt smoke?: No Smoking Status: Never smoker Does the pt drink ETOH?: No Does the pt have substance abuse?: No - POLST Patient has POLST: No POLST Status: Full Code PD ED PE NORMAL - Vitals Vital signs reviewed: Yes - General General: Alert and oriented X 3, No acute distress, Well developed/nourished - HEENT HEENT: Atraumatic, PERRL, EOMI, Moist mucous membranes, Pharynx benign - Cardiac Cardiac: RRR - Respiratory Respiratory: No respiratory distress, Clear bilaterally - Abdomen Abdomen: Non tender, Non distended, Other (diffuse discomfort to palpation. ostomy pink with purplish discoloration at distal aspect. appears to have mild to moderate colostomy prolapse) - Back Back: No CVA TTP - Derm Derm: Normal color, Warm and dry - Extremities Extremities: No deformity - Neuro Neuro: Alert and oriented X 3, No motor deficit, No sensory deficit - Psych Psych: Normal mood, Normal affect Results - Vitals Vitals: Vital Signs - 24 hr 09/20/22 09/20/22 23:28 23:38 Temperature 36.6 C 37.2 C Heart Rate 89 85 Respiratory 18 16 Rate Blood Pressure 149/89 H 142/76 H O2 Saturation 98 100 Oxygen O2 Source Room air PD MEDICAL DECISION MAKING - ED course ED course: d/w Dr. Light who will place patient in observation for ostomy prolapse. Departure - Departure Disposition: ED Place in Observation Clinical Impression: Gastrointestinal stoma prolapse Condition: Stable
--- NOTE | 2022-09-20 23:46 | HISTORY & PHYSICAL EXAMINATION ---
Chief Complaint - Chief Complaint Chief Complaint: cramping pain History of Present Illness - Admitted From Admitted From:: ed - History Obtained From Records Reviewed: yes History obtained from: pt Exam Limitations: none - History of Present Illness HPI Comment/Other: history poor colonic motility and ruptured colon with hard stool. colostomy present. few weeks ago surgery for small bowel obstruction due to single band. recently cramping pain like constipation and then swollen stoma. cramping pain improved however stoma still very swollen and tip has turned purple. 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 She does not smoke tobacco products, use alcohol or recreational substances - POLST Patient has POLST: No POLST Status: Full Code Meds/Allgy - Home Medications Home Medications: Ambulatory Orders Medication Instructions Recorded Confirmed Montelukast Sodium 10 mg PO HS 04/26/22 08/28/22 buPROPion HCL [Bupropion Xl] 150 mg PO DAILY 08/06/22 08/28/22 Albuterol Sulf [Ventolin Hfa 2 puffs INH Q4H PRN 08/28/22 08/28/22 Inhaler] Estradiol [Vagifem] 10 mcg VG .TWICE WEEKLY 08/28/22 08/28/22 Multivitamin W/Minerals [Theragran 1 each PO DAILY 08/28/22 08/28/22 M] Triamcinolone 0.1% Oint [Kenalog 1 applic TOP BID PRN 08/28/22 08/28/22 0.1% Oint] Vsl#3:Lactob/S.thermophl/Bifid 1 each PO BIDWM 08/28/22 08/28/22 [Vsl#3] polyethylene glycoL 3350 [Miralax] 1 each PO DAILY 08/28/22 08/28/22 Acetaminophen [Tylenol] 500 mg PO Q4HR PRN tab 09/05/22 polyethylene glycoL 3350 [Miralax] 17 gm PO TID packet 09/05/22 traMADol [Ultram] 50 mg PO Q6H PRN #15 tab 09/05/22 - Allergies Allergies/Adverse Reactions: Allergies Allergy/AdvReac Type Severity Reaction Status Date / Time budesonide AdvReac Anxiety Verified 09/20/22 23:42 codeine AdvReac Emesis Verified 09/20/22 23:42 fluticasone AdvReac Anxiety Verified 09/20/22 23:42 mometasone furoate AdvReac Anxiety Verified 09/20/22 23:42 Review of Systems - Other Findings Other Findings: 10 pt ros as above otherwise unremarkable very healthy and active Exam - Vital Signs Reviewed Vital Signs: Yes Vital Signs: Vital Signs x48h Temp Pulse Resp BP Pulse Ox 09/20/22 23:38 37.2 C 85 16 142/76 H 100 09/20/22 23:28 36.6 C 89 18 149/89 H 98 - Physical Exam General Appearance: positive: No acute distress, Alert Eyes Bilateral: positive: PERRL, EOMI, No scleral icterus ENT: positive: No signs of dehydration Neck: positive: No JVD, Trachea midline Cardiovascular: positive: Regular rate & rhythm Abdomen: positive: Non-tender, No distention, Other (prolapsed stoma with mild edema and mildly purple tip) Neurologic/Psychiatric: positive: Oriented x3 Conclusion/Plan - Problem List (1) Gastrointestinal stoma prolapse Conclusion/Plan: plan clears, bowel protocol, observation. if stoma turns black and cold she will need a revision. this is unlikely to happen; however, close observation, ivf recommended
[2022-09-20] MEDS ORDERED: ZOLPIDEM 5 MG TABLET PO PRN (23:50)
[2022-09-20] MEDS ORDERED: SODIUM CHLORIDE FLUSH 0.9% 10 ML SYRINGE IVP PRN (23:50)
[2022-09-20] MEDS ORDERED: ONDANSETRON ODT 4 MG TABLET TL PRN (23:50)
[2022-09-21] MEDS: SODIUM CHLORIDE FLUSH 0.9% 10 ML SYRINGE IVP SCH ×3 (02:28→19:33)
[2022-09-21] MEDS: D5.45NS W/20 MEQ KCL 1,000 ML IV SCH ×2 (02:28→13:16)
[2022-09-21] MEDS ORDERED: buPROPion XL 150 MG TABLET PO SCH ×2 (09:00→11:00)
[2022-09-21 09:34] LABS: HGB - HEMOGLOBIN 11.6 g/dL (12.0-16.0); MEAN CORPUSCULAR HEMOGLOBIN 31.4 pg (27.0-31.0); MEAN CORPUSCULAR HGB CONC 33.1 g/dL (32.0-36.0); MEAN CORPUSCULAR VOLUME 94.6 fL (81.0-99.0); MEAN PLATELET VOLUME 9.4 fL (7.9-10.8); RED BLOOD COUNT 3.7 10^6/uL (4.20-5.40); RED CELL DISTRIBUTION WIDTH 13.6 % (12.0-15.0)
[2022-09-21 09:43] LABS: CALCIUM 8.7 mg/dL (8.5-10.3); CREATININE 0.6 mg/dL (0.4-1.0); POTASSIUM 4.5 mmol/L (3.5-5.0)
[2022-09-21] MEDS ORDERED: SODIUM CHLORIDE 0.9% 1,000 ML IV ONE (10:37)
[2022-09-21] MEDS ORDERED: ACETAMINOPHEN 500 MG TABLET PO PRN (10:42)
--- NOTE | 2022-09-21 10:48 | PROVIDER PROGRESS NOTE ---
Subjective - General Admit Date: 09/20/22 Procedure Date: 08/30/22 Post Op Days: 22 - Review of Systems Wound/Incisions: positive: Healing well - Other Other Information/Narrative: The patient is having crampy and sharp right sided abdominal pain near her incision. She denies n/v and has had some stool output from her ostomy since readmission. She is tolerating clears. Sugar was applied to her ostomy with decreased edema overnight, but the ostomy has not been reduced and reduction has not been attempted. Objective - Patient Data Vital Signs: Vital Signs x48h Temp Pulse Resp BP Pulse Ox 09/21/22 08:00 36.6 C 72 16 115/52 L 96 09/21/22 05:55 36.6 C 81 14 120/65 97 Weight: Weight 09/19/22 09/20/22 09/21/22 23:59 23:59 23:59 Weight (kg) 53.7 kg 54 kg Intake & Output: Intake and Output Totals x24h 09/19/22 09/20/22 09/21/22 23:59 23:59 23:59 Intake Total 550 Output Total 25 Balance 525 - Lab Results Lab Results: 09/21/22 09:29 09/21/22 09:29 Other Lab Results: Lab Results x24hrs 09/21/22 09/21/22 09/21/22 Range/Units 09:29 09:29 09:29 WBC 4.0 L (4.8-10.8) x10^3/uL RBC 3.70 L (4.20-5.40) 10^6/uL Hgb 11.6 L (12.0-16.0) g/dL Hct 35.0 L (37.0-47.0) % MCV 94.6 (81.0-99.0) fL MCH 31.4 H (27.0-31.0) pg MCHC 33.1 (32.0-36.0) g/dL RDW 13.6 (12.0-15.0) % Plt Count 258 (130-450) 10^3/uL MPV 9.4 (7.9-10.8) fL Sodium 136 (135-145) mmol/L Potassium 4.5 (3.5-5.0) mmol/L Chloride 103 (101-111) mmol/L Carbon Dioxide 26 (21-32) mmol/L Anion Gap 7.0 (6-13) BUN 13 (6-20) mg/dL Creatinine 0.6 (0.4-1.0) mg/dL Estimated GFR (MDRD) 97 (>89) Glucose 144 H (70-100) mg/dL Lactic Acid 2.1 (0.5-2.2) mmol/L Calcium 8.7 (8.5-10.3) mg/dL SARS-CoV-2 (PCR) 09/21/22 Range/Units 00:00 WBC (4.8-10.8) x10^3/uL RBC (4.20-5.40) 10^6/uL Hgb (12.0-16.0) g/dL Hct (37.0-47.0) % MCV (81.0-99.0) fL MCH (27.0-31.0) pg MCHC (32.0-36.0) g/dL RDW (12.0-15.0) % Plt Count (130-450) 10^3/uL MPV (7.9-10.8) fL Sodium (135-145) mmol/L Potassium (3.5-5.0) mmol/L Chloride (101-111) mmol/L Carbon Dioxide (21-32) mmol/L Anion Gap (6-13) BUN (6-20) mg/dL Creatinine (0.4-1.0) mg/dL Estimated GFR (MDRD) (>89) Glucose (70-100) mg/dL Lactic Acid (0.5-2.2) mmol/L Calcium (8.5-10.3) mg/dL SARS-CoV-2 (PCR) NOT DETECTED - Imaging Results Imaging Results Comments: Abdominal series pending - Current Medications Current Medications: Current Medications Generic Name Dose Route Start Last Admin Trade Name Freq PRN Reason Stop Dose Admin Bupropion HCl 150 mg 09/21/22 09:00 09/21/22 09:30 Bupropion Xl 150 Mg Tablet PO 150 mg DAILY WERO Administration Potassium Chloride/Dextrose/Sod Cl 1,000 mls @ 100 mls/hr 09/20/22 23:45 09/21/22 02:28 D5.45ns W/20 Meq Kcl IV 100 mls/hr .Q10H WERO Administration Sodium Chloride 10 ml 09/20/22 23:50 09/21/22 02:43 Sodium Chloride Flush 0.9% 10 Ml Syringe IVP 10 ml PRN PRN Administration NEEDED PER PROVIDER ORDERS Sodium Chloride 10 ml 09/21/22 01:00 09/21/22 09:31 Sodium Chloride Flush 0.9% 10 Ml Syringe IVP Not Given 0100,0900,1700 WERO - Physical Exam Wound/Incisions: positive: Healing well, Other (spitting suture near middle of incision) General Appearance: positive: No acute distress, Alert Eyes Bilateral: positive: Normal inspection, PERRL, EOMI Respiratory: positive: Chest non-tender, No respiratory distress Cardiovascular: positive: Regular rate & rhythm, No murmur Abdomen: positive: Tenderness (mild, diffuse ttp), Other (ostomy is ecchymotic, edematous, and prolapsed) Extremities: positive: Non-tender, Full ROM Neurologic/Psychiatric: positive: Oriented x3 Impression/Plan - Problem List Problem List: 77 y/o F who is well known to me. She has a h/o ruptured colon several months ago, s/p Devon's. She developed a recurrent SBO 2/2 adhesions and had an ex lap with TI about three weeks ago. She was doing well until yesterday afternoon when she noted her ostomy to be more prolapsed, edematous, and eccyhmotic than normal. Prolapsed ostomy - I reapplied sugar and reduced the ostomy - a small submucosal hematoma developed along the lateral aspect of the ostomy during reduction, small amount of blood from this - the patient may have some conitinued bloody ostomy output - abdominal exam remains benign - I suspect patient's prolapse is due, at least in part, to hard stool within her colon. Abd XR to assess stool burden ordered. Bowel prep with miralax ordered. Will stop when having liquid ostomy output. boderline elevated lactate level - 2/2 dehydration vs ostomy ischemia - ostomy reduced, giving 1L fluid bolus - recheck lactate level in 6 hours Asthma, depression - home meds restarted Patient changed to inpatient. If bowel function improves, adat to regular, likely discharge home tomorrow. f/u in clinic prn.
[2022-09-21] MEDS ORDERED: ALBUTEROL NEB 2.5 MG/3 ML INH PRN (10:57)
[2022-09-21] MEDS ORDERED: polyethylene glycoL 3350 238 GM BOTTLE PO ONE (11:00)
[2022-09-21] MEDS: MONTELUKAST 10 MG TABLET PO SCH ×2 (11:04→20:31)
--- NOTE | 2022-09-21 11:23 | PHARMACY PROGRESS NOTE ---
- Best Possible Medication History Admit Date and Time: 09/20/22 2101 Processed by: Nursing As the person ultimately responsible for medication therapy, providers are able to order a medication from an existing home medication list in [facility] via the "Reconcile Routine" prior to Confirmation of that medication by support dba. Such practice is discouraged except when the physician, in their clinical judgment, deems that a medical need exists for a medication without regard to previous use.
--- NOTE | 2022-09-21 13:09 | XRAY Report ---
PROCEDURE: Abdomen Acute INDICATIONS: ostomy prolapse, constipation, assess stool burden TECHNIQUE: One view chest and two views of the abdomen were acquired. COMPARISON: 08/29/2022 FINDINGS: Surgical changes and devices: Pubis anchors are seen. Left mastectomy change can be seen. Chest: Lungs are clear. The aorta is prominent and tortuous. The cardiac contours are within normal limits. No pleural effusions. No pneumoperitoneum. Abdomen: Bowel gas pattern is normal. The burden of stool within the colon is not abnormal. No suspi cious calcifications. Visualized solid organ contours appear normal. Bones: No suspicious bony lesions. Age-appropriate degenerative changes are seen. Mild dextroconve x scoliotic curvature is seen. IMPRESSION: There is a nonobstructive bowel gas pattern seen. The burden of stool within the colon is not excessive. If the symptoms persist or worsen, please consider a dedicated follow-up CT for further evaluation. Clear lungs. Postoperative and degenerative changes are seen. Reviewed by: Marshall Chilel MD on 09/21/2022 12:[address] [facility] Approved by: Marshall Chilel MD on 09/21/2022 12:[address] [facility] Station ID: [id number]
[2022-09-21] MEDS: polyethylene glycoL 3350 17 GM PACKET PO SCH ×2 (13:30→20:35)
[2022-09-21] MEDS: ACETAMINOPHEN 325 MG TABLET PO PRN (20:32)
[2022-09-22] MEDS: SODIUM CHLORIDE FLUSH 0.9% 10 ML SYRINGE IVP SCH (00:34)
[2022-09-22] MEDS: ACETAMINOPHEN 325 MG TABLET PO PRN (00:54)
[2022-09-22 06:08] LABS: HCT - HEMATOCRIT 32.1 % (37.0-47.0); HGB - HEMOGLOBIN 10.7 g/dL (12.0-16.0); MEAN CORPUSCULAR HEMOGLOBIN 31.6 pg (27.0-31.0); MEAN CORPUSCULAR HGB CONC 33.3 g/dL (32.0-36.0); MEAN CORPUSCULAR VOLUME 94.7 fL (81.0-99.0); MEAN PLATELET VOLUME 9.9 fL (7.9-10.8); RED BLOOD COUNT 3.39 10^6/uL (4.20-5.40); RED CELL DISTRIBUTION WIDTH 13.9 % (12.0-15.0); WHITE BLOOD COUNT 4.9 x10^3/uL (4.8-10.8)
[2022-09-22] MEDS: polyethylene glycoL 3350 17 GM PACKET PO SCH (06:55)
--- NOTE | 2022-09-22 07:14 | Discharge Plan ---
Discharge Plan Problem Reviewed?: Yes Disposition: Home, Self Care Condition: Stable Diet: Regular Activity Restrictions: No Restrictions Shower Restrictions: No Driving Restrictions: No Weight Bearing: Full Weight Instruction Topics: Colostomy Common Questions, Colostomy Stoma Care Plan of Treatment: continue to care for ostomy, inicison. Reduce ostomy as needed. Assessment: prolapsed ostomy, reduced Additional Instructions or Follow Up instructions: avoid lifting/pushing/pulling more than 20 lbs for three weeks (total of 6 weeks from recent surgery) No Smoking: If you smoke, Please STOP! Call for help.
--- NOTE | 2022-09-22 07:21 | DISCHARGE SUMMARY ---
Discharge Summary Admit Date: 09/21/22 Discharge Date: 09/22/22 Discharging Provider: Dr. Sharyn Willis Code Status: Attempt Resuscitation Condition at Discharge: Stable Discharge Disposition: 01 Home, Self Care - DIAGNOSES Admission Diagnoses: prolapsed ostomy Discharge Diagnoses with Status of Each Condition: prolapsed ostomy, reduced lactic acidosis, resolved - HPI History of Present Illness: Patient admitted with ostomy which has become increasingly prolapsed, edematous, and ecchymotic in the day prior to admission. - HOSPITAL COURSE Hospital Course: The ostomy was treated with sugar, and manually reduced. The patient's pain decreased and lactate levle normalized after reduction. She is having good ostomy output and tolerating a regular diet. At this time, she is stable for discharge to home. - ALLERGIES Allergies/Adverse Reactions: Allergies Allergy/AdvReac Type Severity Reaction Status Date / Time budesonide AdvReac Anxiety Verified 09/20/22 23:42 codeine AdvReac Emesis Verified 09/20/22 23:42 fluticasone AdvReac Anxiety Verified 09/20/22 23:42 mometasone furoate AdvReac Anxiety Verified 09/20/22 23:42 - MEDICATIONS Home Medications: Ambulatory Orders Medication Instructions Recorded Confirmed Montelukast Sodium 10 mg PO HS 04/26/22 09/20/22 buPROPion HCL [Bupropion Xl] 150 mg PO DAILY 08/06/22 09/20/22 Albuterol Sulf [Ventolin Hfa 2 puffs INH Q4H PRN 08/28/22 09/20/22 Inhaler] Estradiol [Vagifem] 10 mcg VG .TWICE WEEKLY 08/28/22 09/20/22 Multivitamin W/Minerals [Theragran 1 each PO DAILY 08/28/22 09/20/22 M] Triamcinolone 0.1% Oint [Kenalog 1 applic TOP BID PRN 08/28/22 09/20/22 0.1% Oint] Vsl#3:Lactob/S.thermophl/Bifid 1 each PO BIDWM 08/28/22 09/20/22 [Vsl#3] polyethylene glycoL 3350 [Miralax] 1 each PO DAILY 08/28/22 09/20/22 polyethylene glycoL 3350 [Miralax] 17 gm PO TID packet 09/05/22 09/20/22 Acetaminophen [Tylenol] 650 mg PO Q4HR PRN tab 09/22/22 Ondansetron Odt [Zofran Odt] 4 mg TL Q6HR PRN tab 09/22/22 buPROPion [Wellbutrin Xl] 150 mg PO DAILY tab 09/22/22 - PHYSICAL EXAM AT DISCHARGE General Appearance: positive: No acute distress, Alert Eyes Bilateral: positive: Normal inspection, PERRL, EOMI Respiratory: positive: No respiratory distress Cardiovascular: positive: Regular rate & rhythm Abdomen: positive: Tenderness (very slight abdominal tenderness, mostly incisional), Other (ostomy flat, pink, productive of gas and stool (non bloody output)). negative: Guarding, Rebound Skin: positive: Color nml, No rash Extremities: positive: Non-tender, Full ROM, No pedal edema Neurologic/Psychiatric: positive: Oriented x3 - LABS Result Diagrams: 09/22/22 05:38 09/21/22 09:29 - FOLLOW UP Follow Up: esther Mera - TIME SPENT Time Spent in Discharge (Minutes): 32
[2022-09-22 08:21] VITALS: BP 128/62
[2022-09-22] MEDS ORDERED: MULTIVITAMIN W/MINERALS TABLET PO SCH (09:00)
[2022-09-23] MEDS ORDERED: Estradiol [Vagifem] 10 MCG Tablet VG SCH (09:00)
== END 2022-09-22 09:00 | disposition home or self-care (01) | DRG 394 ==
LOC: ED 23:18 → MS2 23:50 → OBSVTOIN 09-21 10:37
PROVIDERS: ADMIT Surgery; ATTEND Surgery
DX: K94.09 Other complications of colostomy (principal); Z20.822 Contact with and (suspected) exposure to COVID-19; E87.20 Acidosis, unspecified; J45.909 Unspecified asthma, uncomplicated; F32.A Depression, unspecified; Z79.899 Other long term (current) drug therapy; Z80.3 Family history of malignant neoplasm of breast; Z80.41 Family history of malignant neoplasm of ovary; Z80.51 Family history of malignant neoplasm of kidney
CPT/HCPCS: 36415; 74022; 80048; 83605; 85027; 87635; 99284; 99285; A9270

== ENCOUNTER 2022-10-04 10:01 | Observation (INO) | payer MEDICARE, OTHER ==
--- NOTE | 2022-10-04 10:21 | ED Physician Documentation ---
PD HPI ABD PAIN - Stated complaint Stated Complaint: BOWL OBSTRUCTION - Chief complaint Chief Complaint: Abd Pain - History obtained from History obtained from: Patient - History of Present Illness Timing - onset: How many hours ago (couple) Timing - duration: Hours Timing - details: Abrupt onset, Still present Pain level max: 10 Pain level now: 10 Quality: Cramping, Aching, Fullness/distended Location: All over / everywhere Radiation: Lower back Improved by: Vomiting Worsened by: Moving, Palpation. No: Breathing Associated symptoms: Nausea, Vomiting, Loss of appetite. No: Fever, Diarrhea, Dysuria Similar symptoms before: Diagnosis (symptoms same as prior SBOs.) Review of Systems Constitutional: denies: Fever, Chills Nose: denies: Rhinorrhea / runny nose, Congestion Throat: denies: Sore throat Respiratory: denies: Cough GI: reports: Abdominal Pain (onet today), Abdominal Swelling, Vomiting. 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 - Present Medications Home Medications: Ambulatory Orders Medication Instructions Recorded Confirmed Montelukast Sodium 10 mg PO HS 04/26/22 10/04/22 Albuterol Sulf [Ventolin Hfa 2 puffs INH Q4H PRN 08/28/22 10/04/22 Inhaler] Estradiol [Vagifem] 10 mcg VG .TWICE WEEKLY 08/28/22 10/04/22 Multivitamin W/Minerals [Theragran 1 each PO DAILY 08/28/22 10/04/22 M] Triamcinolone 0.1% Oint [Kenalog 1 applic TOP BID PRN 08/28/22 10/04/22 0.1% Oint] Vsl#3:Lactob/S.thermophl/Bifid 1 each PO BIDWM 08/28/22 10/04/22 [Vsl#3] polyethylene glycoL 3350 [Miralax] 17 gm PO TID packet 09/05/22 10/04/22 Acetaminophen [Tylenol] 650 mg PO Q4HR PRN tab 09/22/22 10/04/22 Ondansetron Odt [Zofran Odt] 4 mg TL Q6HR PRN tab 09/22/22 10/04/22 buPROPion [Wellbutrin Xl] 150 mg PO DAILY tab 09/22/22 10/04/22 - Allergies Allergies/Adverse Reactions: Allergies Allergy/AdvReac Type Severity Reaction Status Date / Time budesonide AdvReac Anxiety Verified 09/20/22 23:42 codeine AdvReac Emesis Verified 09/20/22 23:42 fluticasone AdvReac Anxiety Verified 09/20/22 23:42 mometasone furoate AdvReac Anxiety Verified 09/20/22 23:42 - Social History Does the pt smoke?: No Smoking Status: Never smoker Does the pt drink ETOH?: No Does the pt have substance abuse?: No - Immunizations Immunizations are current?: Yes - POLST Patient has POLST: No POLST Status: Full Code PD ED PE NORMAL - Vitals Vital signs reviewed: Yes - General General: Alert and oriented X 3, Well developed/nourished, Other (appears in considerable pain from abdomen. Moaning and writhing.) - HEENT HEENT: Pharynx benign - Neck Neck: Supple, no meningeal sign, No adenopathy - Cardiac Cardiac: RRR, No murmur - Respiratory Respiratory: No respiratory distress, Clear bilaterally - Abdomen Abdomen: No organomegaly, Other (distended and firm, diffusely tender. Colostomy left mid abd with some output in bag from this morning. No blood. Bowel sounds hyperactive. ) - Female Female : Deferred - Rectal Rectal: Deferred - Derm Derm: Warm and dry. No: Normal color (pallor) - Extremities Extremities: Normal ROM s pain, No edema, No calf tenderness / cord Results - Vitals Vitals: Vital Signs - 24 hr 10/04/22 10:12 Temperature 37.4 C Heart Rate 68 Respiratory 23 Rate Blood Pressure 153/79 H O2 Saturation 99 Oxygen O2 Source Room air - Labs Labs: Laboratory Tests 10/04/22 10/04/22 10/04/22 10:43 10:43 10:43 WBC 8.2 RBC 4.24 Hgb 13.0 Hct 40.2 MCV 94.8 MCH 30.7 MCHC 32.3 RDW 13.3 Plt Count 176 MPV 10.7 Neut # (Auto) 6.7 H Lymph # (Auto) 0.9 L [place] # (Auto) 0.4 Eos # (Auto) 0.2 Baso # (Auto) 0.0 Absolute Nucleated RBC 0.00 Nucleated RBC % 0.0 Sodium 136 Potassium 3.9 Chloride 101 Carbon Dioxide 22 Anion Gap 13.0 BUN 28 H Creatinine 0.7 Estimated GFR (MDRD) 82 L Glucose 141 H Lactic Acid 3.8 H* Calcium 8.5 Magnesium 1.9 Total Bilirubin 0.7 AST 24 ALT 17 Alkaline Phosphatase 54 Total Protein 6.5 L Albumin 3.7 Globulin 2.8 Albumin/Globulin Ratio 1.3 Lipase 51 - Rads (name of study) abd/pelvic CT Radiology: Prelim report reviewed (areas of small bowel wall thickening. No free air. No bowel obstruction. Copious stool. ), See rad report PD MEDICAL DECISION MAKING - ED course Complexity details: re-evaluated patient (She did have much decreased pain starting just as medication was given and more so after medication and before CT. Clinically I would believe she had a bowel obstruction that may have decompressed by the time of CT scan. Elevated lactate would corroborate.), considered differential (Her symptoms and presentation and exam are consistent with bowel obstruction versus perforated viscus. To get CT; give pain meds and fluids.), d/w patient Departure - Departure Disposition: ED Place in Observation Clinical Impression: Intermittent small bowel obstruction due to adhesions Abdominal pain Qualifiers: Abdominal location: generalized Qualified Code(s): R10.84 - Generalized abdominal pain Constipation Qualifiers: Constipation type: other constipation type Qualified Code(s): K59.09 - Other constipation Condition: Stable
[2022-10-04] MEDS ORDERED: ONDANSETRON 4 MG/2 ML VIAL IVP STA (10:34)
[2022-10-04] MEDS ORDERED: HYDROmorphone 1 MG/ML CARPUJECT IVP STA (10:34)
[2022-10-04] MEDS ORDERED: SODIUM CHLORIDE 0.9% 1,000 ML IV STA ×2 (10:35→12:06)
[2022-10-04] MEDS ORDERED: iohexoL-300 100 ML VIAL ONE (10:39)
[2022-10-04 10:46] LABS: BASOPHILS % (AUTO) 0.5 %; EOSINOPHILS # (AUTO) 0.2 10^3/uL (0.0-0.7); EOSINOPHILS % (AUTO) 2.4 %; HCT - HEMATOCRIT 40.2 % (37.0-47.0); LYMPHOCYTES # (AUTO) 0.9 10^3/uL (1.5-3.5); LYMPHOCYTES % (AUTO) 10.7 %; MEAN CORPUSCULAR HEMOGLOBIN 30.7 pg (27.0-31.0); MEAN CORPUSCULAR HGB CONC 32.3 g/dL (32.0-36.0); MEAN CORPUSCULAR VOLUME 94.8 fL (81.0-99.0); MEAN PLATELET VOLUME 10.7 fL (7.9-10.8); MONOCYTES # (AUTO) 0.4 10^3/uL (0.0-1.0); MONOCYTES % (AUTO) 4.8 %; NEUTROPHILS # (AUTO) 6.7 10^3/uL (1.5-6.6); NEUTROPHILS % (AUTO) 81.1 %; PLT - PLATELET COUNT 176 10^3/uL (130-450); RED BLOOD COUNT 4.24 10^6/uL (4.20-5.40); RED CELL DISTRIBUTION WIDTH 13.3 % (12.0-15.0); WHITE BLOOD COUNT 8.2 x10^3/uL (4.8-10.8)
[2022-10-04 11:01] LABS: ALBUMIN 3.7 g/dL (3.2-5.5); ALBUMIN/GLOBULIN RATIO 1.3 (1.0-2.2); BILIRUBIN,TOTAL 0.7 mg/dL (0.2-1.0); CALCIUM 8.5 mg/dL (8.5-10.3); CREATININE 0.7 mg/dL (0.4-1.0); MAGNESIUM 1.9 mg/dL (1.7-2.8); POTASSIUM 3.9 mmol/L (3.5-5.0); TOTAL PROTEIN 6.5 g/dL (6.7-8.2)
--- NOTE | 2022-10-04 11:50 | CT Report ---
PROCEDURE: ABDOMEN/PELVIS W INDICATIONS: Abdominal pain, acute, nonlocalized CONTRAST: 100ml omni 300 TECHNIQUE: After the administration of IV contrast, 5 mm thick sections acquired from the diaphragms to the symp hysis. 5 mm thick coronal and sagittal reformats were acquired. For radiation dose reduction, the f ollowing was used: automated exposure control, adjustment of mA and/or kV according to patient size. COMPARISON: 08/28/2022, 07/26/2022, 04/26/2022 FINDINGS: Image quality: Excellent. ABDOMEN: Lung bases: Lung bases are clear. Heart size is normal. Solid organs: Liver and spleen are normal in size and enhancement. Gallbladder wall does not appear thickened. Biliary system is non dilated. Pancreas enhances normally. No adrenal nodules. Kidne ys demonstrate normal size and enhancement, without hydronephrosis. Peritoneum and bowel: Postoperative changes are seen, with left lower quadrant ostomy. Within the colon, there is a moderate amount of stool seen. Dilated loops of small bowel are seen sarai t measure up to 3.1 cm. Several loops of mid small bowel demonstrate hyperenhancing lopez. The distal small bowel demonstrates several loops of forming stool, which is consistent with stagnant small bow el contents. Nodes and vessels: No retroperitoneal or mesenteric adenopathy by size criteria. Aorta and inferior vena cava are normal in size. Miscellaneous: No ventral hernias. PELVIS: Genitourinary: Bladder wall thickness is normal. This patient is status post hysterectomy. No adnex al masses can be seen. Miscellaneous: No inguinal hernias or adenopathy. Bones: No suspicious bony lesions. No vertebral body compression fractures. Mild to moderate dextr oconvex thoracal lumbar scoliosis is seen. Moderate degenerative changes seen of the lumbar spine and the hips. IMPRESSION: Postoperative change, with left lower quadrant ostomy. There is a moderate amount of stool seen within the colon, which is worse on the prior examination. C onstipation is suspected. The small bowel is also normal, with several loops of distal small bowel demonstrating forming stool, which is consistent with stagnant small bowel contents. Several loops of mid small bowel demonstrate s hyperenhancing lopez. Ileus from the constipation is suspected. However, please consider enteritis. Additional findings: Mild to moderate dextroconvex scoliosis Moderate degenerative change Hysterectomy Reviewed by: Marshall Chilel MD on 10/04/2022 10:49 AM [facility] Approved by: Marshall Chilel MD on 10/04/2022 10:49 AM [facility] Station ID: [id number]
[2022-10-04] MEDS ORDERED: iohexoL-300 100 ML VIAL IVP ONE (11:54)
[2022-10-04] MEDS ORDERED: HYDROmorphone 0.5 MG/0.5 ML SYRINGE IVP PRN (12:53)
[2022-10-04] MEDS ORDERED: ONDANSETRON 4 MG/2 ML VIAL IVP PRN (12:53)
[2022-10-04] MEDS ORDERED: ACETAMINOPHEN 325 MG TABLET PO PRN (12:53)
[2022-10-04] MEDS ORDERED: SODIUM CHLORIDE FLUSH 0.9% 10 ML SYRINGE IVP PRN (12:53)
[2022-10-04] MEDS ORDERED: PROCHLORPERAZINE 10 MG/2 ML VIAL IVP PRN (12:53)
[2022-10-04] MEDS ORDERED: LACTATED RINGERS 1,000 ML IV SCH (13:00)
[2022-10-04 13:16] LABS: BILIRUBIN,URINE NEGATIVE (NEGATIVE); GLUCOSE, URINE (UA) NEGATIVE (NEGATIVE); KETONES,URINE (UA) NEGATIVE (NEGATIVE); LEUKOCYTE ESTERASE, URINE NEGATIVE (NEGATIVE); NITRITE,URINE NEGATIVE (NEGATIVE); OCCULT BLOOD,URINE NEGATIVE (NEGATIVE); PH,URINE 6.5 PH (5.0-7.5); PROTEIN,URINE NEGATIVE (NEGATIVE); UROBILINOGEN,URINE 0.2 (NORMAL) E.U./dL (NORMAL)
--- NOTE | 2022-10-04 13:16 | HISTORY & PHYSICAL EXAMINATION ---
Chief Complaint - Chief Complaint Chief Complaint: Nausea, vomiting, abdominal cramping History of Present Illness - Admitted From Admitted From:: ED - History Obtained From Records Reviewed: Yes History obtained from: Patient Exam Limitations: None - History of Present Illness HPI Comment/Other: Leyda is s/p emergency sigmoid colectomy and colostomy for perforated diverticulitis with fecal peritonitis on 04/26/2022 and s/p exploratory laparotomy for a chronic, partial small bowel obstruction on 08/30/2022. Her immediate post-op course from the most recent procedure was unremarkable. About 2 weeks ago, she was admitted for prolapse of her colostomy which was thought due to chronic constipation. The prolapse was treated with sugar administration and her constipation treated with Miralax. She was discharged to home on TID Miralax and has been having soft, mushy bowel motions daily until yesterday when she had no bowel activity. This morning she ate a light breakfast and over the course of the next several hours, she developed severe abdominal cramping, nausea, and two episodes of emesis. She did pass a liquid bowel motion during the morning but has had no bowel activity since then. She contacted me via the [employer] on-call system and I advised that she come to the ED for evaluation. Upon arrival, and before she received any medication, her abdominal cramping suddenly resolved, she became comfortable but has remained a bit nauseated. Leyda tells me that she takes Miralax TID and that during her July colonoscopy (via the colostomy performed by Dr. Sanches) she only had a successful bowel prep once Dulcolax was used. Apparently the Miralax wasn't enough. She is to see Dr. Sanches this Thursday to address the prolapse and he plans to restore intestinal continuity in December. At the time of my evaluation, Leyda is comfortable and without abdominal pain or cramping. 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 She does not smoke tobacco products, use alcohol or recreational substances - Substance History Use: Uses substance without health or social issues: NONE - POLST Patient has POLST: Yes POLST Status: Full Code Meds/Allgy - Home Medications Home Medications: Ambulatory Orders Medication Instructions Recorded Confirmed Montelukast Sodium 10 mg PO HS 04/26/22 09/20/22 buPROPion HCL [Bupropion Xl] 150 mg PO DAILY 08/06/22 09/20/22 Albuterol Sulf [Ventolin Hfa 2 puffs INH Q4H PRN 08/28/22 09/20/22 Inhaler] Estradiol [Vagifem] 10 mcg VG .TWICE WEEKLY 08/28/22 09/20/22 Multivitamin W/Minerals [Theragran 1 each PO DAILY 08/28/22 09/20/22 M] Triamcinolone 0.1% Oint [Kenalog 1 applic TOP BID PRN 08/28/22 09/20/22 0.1% Oint] Vsl#3:Lactob/S.thermophl/Bifid 1 each PO BIDWM 08/28/22 09/20/22 [Vsl#3] polyethylene glycoL 3350 [Miralax] 1 each PO DAILY 08/28/22 09/20/22 polyethylene glycoL 3350 [Miralax] 17 gm PO TID packet 09/05/22 09/20/22 Acetaminophen [Tylenol] 650 mg PO Q4HR PRN tab 09/22/22 Ondansetron Odt [Zofran Odt] 4 mg TL Q6HR PRN tab 09/22/22 buPROPion [Wellbutrin Xl] 150 mg PO DAILY tab 09/22/22 - Allergies Allergies/Adverse Reactions: Allergies Allergy/AdvReac Type Severity Reaction Status Date / Time budesonide AdvReac Anxiety Verified 09/20/22 23:42 codeine AdvReac Emesis Verified 09/20/22 23:42 fluticasone AdvReac Anxiety Verified 09/20/22 23:42 mometasone furoate AdvReac Anxiety Verified 09/20/22 23:42 Review of Systems - Gastrointestinal Gastrointestinal: reports: Abdominal pain, Constipation, Nausea, Vomiting Prior Level of Functionality: Independent Exam - Vital Signs Vital Signs: Vital Signs x48h Temp Pulse Resp BP Pulse Ox 10/04/22 10:12 99.3 F 68 23 153/79 H 99 - Physical Exam General Appearance: positive: No acute distress, Alert Eyes Bilateral: positive: Normal inspection, PERRL ENT: positive: Pharynx nml, Dry mucous membranes Neck: positive: Nml inspection, Thyroid nml, No JVD, Trachea midline Respiratory: positive: Chest non-tender, No respiratory distress, Breath sounds nml Cardiovascular: positive: Regular rate & rhythm, No murmur Peripheral Pulses: positive: 2+ Abdomen: positive: Non-tender, No organomegaly, Nml bowel sounds, No distention, Other (Colostomy, LLQ, 2-3 cm prolapse, pink, viable, small amount of liquid stool in pouch; Digital exam identifies no obstruction with easy entry through fascial opening; Midline wound healed without herniation. Soft abdomen without tenderness.) Back: positive: Nml inspection Skin: positive: Color nml Extremities: positive: Non-tender, Full ROM, Nml appearance Neurologic/Psychiatric: positive: Oriented x3 Conclusion/Plan - Problem List (1) Abdominal pain Conclusion/Plan: Assessment: 1) Chronic constipation - the degree of fecal load in the entire colon is high and likely accounts for the mild dilation of the small bowel with CT evidence of retrograde flow of feces into the distal ileum 2) No evidence of partial or complete small bowel obstruction at this time 3) Dehydration likely due to emesis and poor oral intake 4) 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 Austin Bowen MD General Surgery Service (2) Constipation Qualifiers: Constipation type: other constipation type Qualified Code(s): K59.09 - Other constipation - Lab Results Fish Bones: 10/04/22 10:43 10/04/22 10:43 - Diagnostic Imaging Results Diagnostic Imaging Results: positive: Final report reviewed, Other Diagnostic Imaging Results Comments: CT identifies a large amount of stool in a very redundant colon. No free air or fluid; Small bowel appears normal although distal ileum contains fecal material thought related to stagnant colonic fecal burden.
[2022-10-04 13:18] LABS: CLARITY,URINE CLEAR (CLEAR)
[2022-10-04] MEDS: bisacodyL 5 MG TABLET PO SCH (13:34)
[2022-10-04] MEDS: LACTATED RINGERS 1,000 ML IV SCH ×2 (13:34→21:11)
[2022-10-04] MEDS ORDERED: ALBUTEROL NEB 2.5 MG/3 ML INH PRN (13:59)
--- NOTE | 2022-10-04 15:52 | PHARMACY PROGRESS NOTE ---
- Best Possible Medication History Admit Date and Time: 10/04/22 8361 Processed by: Pharmacy Medication History completed: Yes Secondary Source(s): Previous admit records As the person ultimately responsible for medication therapy, providers are able to order a medication from an existing home medication list in [facility] via the "Reconcile Routine" prior to Confirmation of that medication by program support clerk. Such practice is discouraged except when the physician, in their clinical judgment, deems that a medical need exists for a medication without regard to previous use.
[2022-10-04] MEDS: SODIUM CHLORIDE FLUSH 0.9% 10 ML SYRINGE IVP SCH (16:23)
[2022-10-04] MEDS ORDERED: MONTELUKAST 10 MG TABLET PO SCH (21:00)
[2022-10-04] MEDS: HEPARIN 5,000 UNIT/ML VIAL SUBQ SCH (21:19)
[2022-10-05] MEDS: SODIUM CHLORIDE FLUSH 0.9% 10 ML SYRINGE IVP SCH ×2 (00:50→09:14)
[2022-10-05] MEDS: LACTATED RINGERS 1,000 ML IV SCH (03:47)
[2022-10-05 05:23] LABS: BASOPHILS % (AUTO) 0.9 %; EOSINOPHILS # (AUTO) 0.2 10^3/uL (0.0-0.7); EOSINOPHILS % (AUTO) 6.9 %; HCT - HEMATOCRIT 30.1 % (37.0-47.0); HGB - HEMOGLOBIN 9.9 g/dL (12.0-16.0); LYMPHOCYTES % (AUTO) 31.3 %; MEAN CORPUSCULAR HEMOGLOBIN 30.7 pg (27.0-31.0); MEAN CORPUSCULAR HGB CONC 32.9 g/dL (32.0-36.0); MEAN CORPUSCULAR VOLUME 93.5 fL (81.0-99.0); MEAN PLATELET VOLUME 10.1 fL (7.9-10.8); MONOCYTES # (AUTO) 0.3 10^3/uL (0.0-1.0); MONOCYTES % (AUTO) 10.2 %; NEUTROPHILS # (AUTO) 1.7 10^3/uL (1.5-6.6); NEUTROPHILS % (AUTO) 50.4 %; PLT - PLATELET COUNT 170 10^3/uL (130-450); RED BLOOD COUNT 3.22 10^6/uL (4.20-5.40); RED CELL DISTRIBUTION WIDTH 13.5 % (12.0-15.0); WHITE BLOOD COUNT 3.3 x10^3/uL (4.8-10.8)
[2022-10-05 05:32] LABS: CREATININE 0.6 mg/dL (0.4-1.0); POTASSIUM 3.7 mmol/L (3.5-5.0)
[2022-10-05] MEDS ORDERED: buPROPion XL 150 MG TABLET PO SCH (09:00)
[2022-10-05] MEDS ORDERED: PEG 3350/NA SULF,BICARB,CL/KCL 4,000 ML BOTTLE PO ONE (09:11)
[2022-10-05] MEDS: HEPARIN 5,000 UNIT/ML VIAL SUBQ SCH (09:11)
[2022-10-05] MEDS ORDERED: DICYCLOMINE 10 MG CAPSULE PO PRN (09:12)
[2022-10-05] MEDS ORDERED: LACTATED RINGERS 1,000 ML IV SCH (09:13)
[2022-10-05] MEDS: bisacodyL 5 MG TABLET PO SCH (09:14)
--- NOTE | 2022-10-05 09:18 | PROVIDER PROGRESS NOTE ---
Subjective - General Admit Date: 10/04/22 Procedure Date: 08/30/22 Post Op Days: 36 Objective - Patient Data Vital Signs: Vital Signs x48h Temp Pulse Resp BP BP Pulse Ox 10/05/22 07:51 97.7 F 67 16 103/54 L 97 10/05/22 05:00 97.3 F L 88 16 97/51 L 94 Weight: Weight 10/03/22 10/04/22 10/05/22 23:59 23:59 23:59 Weight (kg) 52.5 kg Intake & Output: Intake and Output Totals x24h 10/03/22 10/04/22 10/05/22 23:59 23:59 23:59 Intake Total 3000 970 Output Total 350 Balance 2650 970 - Lab Results Lab Results: 10/05/22 04:42 10/05/22 04:42 Other Lab Results: Lab Results x24hrs 10/05/22 10/05/22 10/04/22 Range/Units 04:42 04:42 15:29 WBC 3.3 L (4.8-10.8) x10^3/uL RBC 3.22 L (4.20-5.40) 10^6/uL Hgb 9.9 L (12.0-16.0) g/dL Hct 30.1 L (37.0-47.0) % MCV 93.5 (81.0-99.0) fL MCH 30.7 (27.0-31.0) pg MCHC 32.9 (32.0-36.0) g/dL RDW 13.5 (12.0-15.0) % Plt Count 170 (130-450) 10^3/uL MPV 10.1 (7.9-10.8) fL Neut # (Auto) 1.7 (1.5-6.6) 10^3/uL Lymph # (Auto) 1.0 L (1.5-3.5) 10^3/uL [place] # (Auto) 0.3 (0.0-1.0) 10^3/uL Eos # (Auto) 0.2 (0.0-0.7) 10^3/uL Baso # (Auto) 0.0 (0.0-0.1) 10^3/uL Absolute Nucleated RBC 0.00 x10^3/uL Nucleated RBC % 0.0 /100WBC Sodium 136 (135-145) mmol/L Potassium 3.7 (3.5-5.0) mmol/L Chloride 104 (101-111) mmol/L Carbon Dioxide 25 (21-32) mmol/L Anion Gap 7.0 (6-13) BUN 16 (6-20) mg/dL Creatinine 0.6 (0.4-1.0) mg/dL Estimated GFR (MDRD) 97 (>89) Glucose 86 (70-100) mg/dL Lactic Acid (0.5-2.2) mmol/L Calcium 8.0 L (8.5-10.3) mg/dL Magnesium (1.7-2.8) mg/dL Total Bilirubin (0.2-1.0) mg/dL AST (10-42) IU/L ALT (10-60) IU/L Alkaline Phosphatase (42-121) IU/L Total Protein (6.7-8.2) g/dL Albumin (3.2-5.5) g/dL Globulin (2.1-4.2) g/dL Albumin/Globulin Ratio (1.0-2.2) Lipase (22-51) U/L Urine Color Urine Clarity (CLEAR) Urine pH (5.0-7.5) PH Ur Specific [place] (1.002-1.030) Urine Protein (NEGATIVE) mg/dL Urine Glucose (UA) (NEGATIVE) mg/dL Urine Ketones (NEGATIVE) mg/dL Urine Occult Blood (NEGATIVE) Urine Nitrite (NEGATIVE) Urine Bilirubin (NEGATIVE) Urine Urobilinogen (NORMAL) E.U./dL Ur Leukocyte Esterase (NEGATIVE) Ur Microscopic Review Urine Culture Comments SARS-CoV-2 (PCR) NOT DETECTED 10/04/22 10/04/22 10/04/22 Range/Units 15:05 13:03 10:43 WBC (4.8-10.8) x10^3/uL RBC (4.20-5.40) 10^6/uL Hgb (12.0-16.0) g/dL Hct (37.0-47.0) % MCV (81.0-99.0) fL MCH (27.0-31.0) pg MCHC (32.0-36.0) g/dL RDW (12.0-15.0) % Plt Count (130-450) 10^3/uL MPV (7.9-10.8) fL Neut # (Auto) (1.5-6.6) 10^3/uL Lymph # (Auto) (1.5-3.5) 10^3/uL [place] # (Auto) (0.0-1.0) 10^3/uL Eos # (Auto) (0.0-0.7) 10^3/uL Baso # (Auto) (0.0-0.1) 10^3/uL Absolute Nucleated RBC x10^3/uL Nucleated RBC % /100WBC Sodium (135-145) mmol/L Potassium (3.5-5.0) mmol/L Chloride (101-111) mmol/L Carbon Dioxide (21-32) mmol/L Anion Gap (6-13) BUN (6-20) mg/dL Creatinine (0.4-1.0) mg/dL Estimated GFR (MDRD) (>89) Glucose (70-100) mg/dL Lactic Acid 0.9 3.8 H* (0.5-2.2) mmol/L Calcium (8.5-10.3) mg/dL Magnesium (1.7-2.8) mg/dL Total Bilirubin (0.2-1.0) mg/dL AST (10-42) IU/L ALT (10-60) IU/L Alkaline Phosphatase (42-121) IU/L Total Protein (6.7-8.2) g/dL Albumin (3.2-5.5) g/dL Globulin (2.1-4.2) g/dL Albumin/Globulin Ratio (1.0-2.2) Lipase (22-51) U/L Urine Color YELLOW Urine Clarity CLEAR (CLEAR) Urine pH 6.5 (5.0-7.5) PH Ur Specific [place] <=1.005 (1.002-1.030) Urine Protein NEGATIVE (NEGATIVE) mg/dL Urine Glucose (UA) NEGATIVE (NEGATIVE) mg/dL Urine Ketones NEGATIVE (NEGATIVE) mg/dL Urine Occult Blood NEGATIVE (NEGATIVE) Urine Nitrite NEGATIVE (NEGATIVE) Urine Bilirubin NEGATIVE (NEGATIVE) Urine Urobilinogen 0.2 (NORMAL) (NORMAL) E.U./dL Ur Leukocyte Esterase NEGATIVE (NEGATIVE) Ur Microscopic Review NOT INDICATED Urine Culture Comments NOT INDICATED SARS-CoV-2 (PCR) 10/04/22 10/04/22 Range/Units 10:43 10:43 WBC 8.2 (4.8-10.8) x10^3/uL RBC 4.24 (4.20-5.40) 10^6/uL Hgb 13.0 (12.0-16.0) g/dL Hct 40.2 (37.0-47.0) % MCV 94.8 (81.0-99.0) fL MCH 30.7 (27.0-31.0) pg MCHC 32.3 (32.0-36.0) g/dL RDW 13.3 (12.0-15.0) % Plt Count 176 (130-450) 10^3/uL MPV 10.7 (7.9-10.8) fL Neut # (Auto) 6.7 H (1.5-6.6) 10^3/uL Lymph # (Auto) 0.9 L (1.5-3.5) 10^3/uL [place] # (Auto) 0.4 (0.0-1.0) 10^3/uL Eos # (Auto) 0.2 (0.0-0.7) 10^3/uL Baso # (Auto) 0.0 (0.0-0.1) 10^3/uL Absolute Nucleated RBC 0.00 x10^3/uL Nucleated RBC % 0.0 /100WBC Sodium 136 (135-145) mmol/L Potassium 3.9 (3.5-5.0) mmol/L Chloride 101 (101-111) mmol/L Carbon Dioxide 22 (21-32) mmol/L Anion Gap 13.0 (6-13) BUN 28 H (6-20) mg/dL Creatinine 0.7 (0.4-1.0) mg/dL Estimated GFR (MDRD) 82 L (>89) Glucose 141 H (70-100) mg/dL Lactic Acid (0.5-2.2) mmol/L Calcium 8.5 (8.5-10.3) mg/dL Magnesium 1.9 (1.7-2.8) mg/dL Total Bilirubin 0.7 (0.2-1.0) mg/dL AST 24 (10-42) IU/L ALT 17 (10-60) IU/L Alkaline Phosphatase 54 (42-121) IU/L Total Protein 6.5 L (6.7-8.2) g/dL Albumin 3.7 (3.2-5.5) g/dL Globulin 2.8 (2.1-4.2) g/dL Albumin/Globulin Ratio 1.3 (1.0-2.2) Lipase 51 (22-51) U/L Urine Color Urine Clarity (CLEAR) Urine pH (5.0-7.5) PH Ur Specific [place] (1.002-1.030) Urine Protein (NEGATIVE) mg/dL Urine Glucose (UA) (NEGATIVE) mg/dL Urine Ketones (NEGATIVE) mg/dL Urine Occult Blood (NEGATIVE) Urine Nitrite (NEGATIVE) Urine Bilirubin (NEGATIVE) Urine Urobilinogen (NORMAL) E.U./dL Ur Leukocyte Esterase (NEGATIVE) Ur Microscopic Review Urine Culture Comments SARS-CoV-2 (PCR) - Current Medications Current Medications: Current Medications Generic Name Dose Route Start Last Admin Trade Name Freq PRN Reason Stop Dose Admin Acetaminophen 650 mg 10/04/22 12:53 10/05/22 06:09 Acetaminophen 325 Mg Tablet PO 650 mg Q4HR PRN Administration Pain 1 to 4, or Fever Bisacodyl 10 mg 10/04/22 13:00 10/04/22 13:34 Bisacodyl 5 Mg Tablet PO 10 mg DAILY WERO Administration Heparin Sodium (Porcine) 5,000 unit 10/04/22 21:00 10/05/22 09:11 Heparin 5,000 Unit/Ml Vial SUBQ 5,000 unit BID WERO Administration Montelukast Sodium 10 mg 10/04/22 21:00 10/04/22 21:12 Montelukast 10 Mg Tablet PO 10 mg QPM WERO Administration Ondansetron HCl 4 mg 10/04/22 12:53 10/04/22 13:35 Ondansetron 4 Mg/2 Ml Vial IVP 4 mg Q6HR PRN Administration Nausea / Vomiting Sodium Chloride 10 ml 10/04/22 17:00 10/05/22 00:50 Sodium Chloride Flush 0.9% 10 Ml Syringe IVP 10 ml 0100,0900,1700 WERO Administration Impression/Plan - Problem List Problem List: S: No further abdominal cramping. Passed small amount of stool into ostomy pouch. No fevers or chills. No nausea or vomiting O: VSS, Afeb; AAO; Abdomen is soft, not distended, and without tenderness. The ostomy pouch has soft, putty-like brown stool. The midline incision from her August surgery is healed. A small suture end was removed today from the superior aspect of the wound. Labs reviewed. A: Constipation - improved. Plan: 1) FLD today 2) Start Go-lytely this morning - only enough to initiate ostomy function 3) Bentyl for abdominal cramping 4) Possibly home later today or tomorrow. Austin Bowen MD General Surgery Service
[2022-10-05 12:46] VITALS: BP 97/58
--- NOTE | 2022-10-05 14:16 | PROVIDER PROGRESS NOTE ---
Progress Note Leyda has tolerated a full liquid diet and has evacuated a large amount of stool from her colostomy. Her abdominal cramping has resolved. I will discharge her to home today. She can eat her regular diet but I have asked that she take Metamucil daily and use Dulcolax and MOM as needed if no bowel motions over a couple days. The Miralax may be used if her constipation lasts longer than three days. Bentyl has been prescribed for abdominal cramping. She has follow up with Dr. Sanches from [facility] on Thursday. Austin Bowen MD General Surgery Service
--- NOTE | 2022-10-05 14:23 | Discharge Plan ---
Discharge Plan Problem Reviewed?: Yes Disposition: Home, Self Care Condition: Good Prescriptions: Dicyclomine [Bentyl] 10 mg PO QID PRN #60 cap PRN Reason: Abdominal Pain Diet: Regular Activity Restrictions: No Restrictions Shower Restrictions: No Health Concerns: At Home: Diet as tolerated Activity as tolerated Medications: Use all usual meds except only take Miralax once a day if no bowel motions for longer than 3-4 days Use Dulcolax daily after no bowel motion for 2 days Use for abdominal cramps as needed Use a tablespoon of Metamucil in 8 oz glass of water daily Follow up with Dr. Sanches on Thursday Assessment: Improved Additional Instructions or Follow Up instructions: Follow up Dr. Sanches on Thursday No Smoking: If you smoke, Please STOP! Call for help.
--- NOTE | 2022-10-05 14:28 | DISCHARGE SUMMARY ---
Discharge Summary Admit Date: 10/04/22 Discharge Date: 10/05/22 Discharging Provider: Dr. Bowen Code Status: Attempt Resuscitation Condition at Discharge: Good Discharge Disposition: 01 Home, Self Care - DIAGNOSES Admission Diagnoses: Constipation - HPI History of Present Illness: Leyda is s/p emergency sigmoid colectomy and colostomy for perforated diverticulitis with fecal peritonitis on 04/26/2022 and s/p exploratory laparotomy for a chronic, partial small bowel obstruction on 08/30/2022. Her immediate post-op course from the most recent procedure was unremarkable. About 2 weeks ago, she was admitted for prolapse of her colostomy which was thought due to chronic constipation. The prolapse was treated with sugar administration and her constipation treated with Miralax. She was discharged to home on TID Miralax and has been having soft, mushy bowel motions daily until yesterday when she had no bowel activity. This morning she ate a light breakfast and over the course of the next several hours, she developed severe abdominal cramping, nausea, and two episodes of emesis. She did pass a liquid bowel motion during the morning but has had no bowel activity since then. She contacted me via the [employer] on-call system and I advised that she come to the ED for evaluation. Upon arrival, and before she received any medication, her abdominal cramping suddenly resolved, she became comfortable but has remained a bit nauseated. Leyda tells me that she takes Miralax TID and that during her July colonoscopy (via the colostomy performed by Dr. Sanches) she only had a successful bowel prep once Dulcolax was used. Apparently the Miralax wasn't enough. She is to see Dr. Sanches this Thursday to address the prolapse and he plans to restore intestinal continuity in December. At the time of my evaluation, Leyda is comfortable and without abdominal pain or cramping. - HOSPITAL COURSE Hospital Course: Uncomplicated hospital course. After IV hydration, she was offered a full liquid diet with 8 oz of Go-Lytely solution. She had excellent return of bowel function and resolution of her symptoms. - ALLERGIES Allergies/Adverse Reactions: Allergies Allergy/AdvReac Type Severity Reaction Status Date / Time budesonide AdvReac Anxiety Verified 09/20/22 23:42 codeine AdvReac Emesis Verified 09/20/22 23:42 fluticasone AdvReac Anxiety Verified 09/20/22 23:42 mometasone furoate AdvReac Anxiety Verified 09/20/22 23:42 - MEDICATIONS Home Medications: Ambulatory Orders Medication Instructions Recorded Confirmed Montelukast Sodium 10 mg PO HS 04/26/22 10/04/22 Albuterol Sulf [Ventolin Hfa 2 puffs INH Q4H PRN 08/28/22 10/04/22 Inhaler] Estradiol [Vagifem] 10 mcg VG .TWICE WEEKLY 08/28/22 10/04/22 Multivitamin W/Minerals [Theragran 1 each PO DAILY 08/28/22 10/04/22 M] Triamcinolone 0.1% Oint [Kenalog 1 applic TOP BID PRN 08/28/22 10/04/22 0.1% Oint] Vsl#3:Lactob/S.thermophl/Bifid 1 each PO BIDWM 08/28/22 10/04/22 [Vsl#3] Acetaminophen [Tylenol] 650 mg PO Q4HR PRN tab 09/22/22 10/04/22 Ondansetron Odt [Zofran Odt] 4 mg TL Q6HR PRN tab 09/22/22 10/04/22 buPROPion [Wellbutrin Xl] 150 mg PO DAILY tab 09/22/22 10/04/22 Dicyclomine [Bentyl] 10 mg PO QID PRN #60 cap 10/05/22 - PHYSICAL EXAM AT DISCHARGE Eyes Bilateral: positive: Normal inspection ENT: positive: ENT inspection nml Neck: positive: Nml inspection Respiratory: positive: Chest non-tender Cardiovascular: positive: Regular rate & rhythm Abdomen: positive: Non-tender Skin: positive: Color nml Extremities: positive: Non-tender - LABS Result Diagrams: 10/05/22 04:42 10/05/22 04:42 - QUALITY (Female Hip Fx Only) Was patient sent home on osteoporosis medication?: No - FOLLOW UP Follow Up: Dr. Sanches, [facility] this Thursday - TIME SPENT Time Spent in Discharge (Minutes): 30
== END 2022-10-05 15:00 | disposition home or self-care (01) ==
LOC: ED 10:01 → MS2 12:53
PROVIDERS: ADMIT Surgery; ATTEND Surgery
DX: K59.09 Other constipation (principal); J45.909 Unspecified asthma, uncomplicated; F32.A Depression, unspecified; E86.0 Dehydration; Z20.822 Contact with and (suspected) exposure to COVID-19; Z79.899 Other long term (current) drug therapy; Z88.5 Allergy status to narcotic agent; Z88.8 Allergy status to other drugs, medicaments and biological substances; Z90.49 Acquired absence of other specified parts of digestive tract; Z90.710 Acquired absence of both cervix and uterus; Z93.3 Colostomy status; Z98.890 Other specified postprocedural states
CPT/HCPCS: 36415; 74177; 80048; 80053; 81003; 83605; 83690; 83735; 85025; 87635; 96372; 96374; 96375; 99284; 99285; A9270; G0378; J1170; J7120; Q9967; 81001; 87086

== ENCOUNTER 2023-06-09 08:00 | Outpatient (CLI) | payer MEDICARE, OTHER ==
--- NOTE | 2023-06-09 16:52 | XRAY Report ---
PROCEDURE: Abdomen 2 View X-Ray INDICATIONS: ACUTE ABDOMINAL PAIN TECHNIQUE: 2 views of the abdomen were acquired. COMPARISON: 09/21/2022. FINDINGS: Surgical changes and devices: Postsurgical changes of the lower midline pelvis likely representing a nastomotic suture line of prior bowel resection. Postsurgical changes of prior left mastectomy. Bowel: No pneumoperitoneum. The bowel gas pattern is nonobstructive. Moderate amount of fecal burde n seen scattered throughout the colon. No differential air-fluid levels seen.. No radiographic findin gs to suggest abnormal wall thickening Soft tissues: No masses; visualized solid organ contours appear normal in size. No suspicious abdom inal calcifications. Bones: No suspicious bony abnormalities. IMPRESSION: Nonobstructive bowel gas pattern. Moderate amount of fecal material seen throughout the colon. Reviewed by: Hola Avila MD on 06/09/2023 4:51 PM PDT Approved by: Hola Avila MD on 06/09/2023 4:51 PM PDT Station ID: [id number]
== END 2023-06-09 23:59 | disposition home or self-care (01) ==
LOC: DI.S 08:00
PROVIDERS: ATTEND Physician Assistant Medical
DX: R10.9 Unspecified abdominal pain (principal)

== ENCOUNTER 2024-04-15 07:00 | Outpatient (CLI) | payer MEDICARE, OTHER ==
--- NOTE | 2024-04-15 18:18 | XRAY Report ---
PROCEDURE: Abdomen 2 V INDICATIONS: CONSTIPATION/ABDOMINAL PAIN TECHNIQUE: 2 views of the abdomen were acquired. COMPARISON: None. FINDINGS: Surgical changes and devices: None. Bowel: No pneumoperitoneum. The bowel gas pattern is normal. Large diffuse fecal load consistent wi th constipation.. Soft tissues: No masses; visualized solid organ contours appear normal in size. No suspicious abdom inal calcifications. Bones: No suspicious bony abnormalities. IMPRESSION: Normal bowel gas pattern. Large diffuse fecal load consistent with constipation. Reviewed by: Marquis Carias MD on 04/15/2024 6:17 PM PDT Approved by: Marqusi Carias MD on 04/15/2024 6:17 PM PDT Station ID: [id number]
== END 2024-04-15 23:59 | disposition home or self-care (01) ==
LOC: DI.S 07:00
PROVIDERS: ATTEND Physician Assistant Medical
DX: K59.00 Constipation, unspecified (principal); R10.9 Unspecified abdominal pain